=== PATIENT | male | born 1940 | race Caucasian/White ===

== ENCOUNTER 2018-12-22 10:40 | Inpatient (IN) | payer OTHER ==
[~2018-12-22] VITALS: Ht 177.8 cm; Wt 49.9 kg
[2018-12-22] VITALS (19 sets, daily range): BP systolic 102–147; BP diastolic 44–83
--- NOTE | 2018-12-22 10:45 | NUR ---
BIB [facility] FROM HOME,AMS/WEAKNESS, LAST KNOWN WELL 1015 PER REPORT, PATIENT NON-VERBAL, OPEN EYES TO STIMULI. SHORT OF BREATH, O2 SAT < 80S ON ROOM AIR. PATIENT PLACED ON A 15LPM NON-REBREATHER WITH O2 SAT OF 85%. DR. PETERSON AT BEDSIDE FOR EVALUATION. PATIENT PRESENTED WITH 2 IV HEPLOCK, LFA AND RFA G20. PATIENT ATTACHED TO THE PLATE SETTER, AND CHANGED INTO GOWN.
--- NOTE | 2018-12-22 11:05 | NUR ---
PT. IS AWAKE AND FOLLOW COMMANDS PLACED INTO BIPAP DUE TO LOW SPO2 IN NON REBREATHER WITH PARAMETERS BELOW ORDER: IPAP 15 EPAP 5 RATE 12 FIO2 100% BREATH SOUNDS DIMINISHED BILATERAL. TIMG @ BEDSIDE. Addendum: 12/22/18 at 1124 by THEODORE LAROSE RT Amended: Links added.
[2018-12-22] MEDS ORDERED: TRAZ-182 PO (11:06)
[2018-12-22] MEDS ORDERED: ATOR10TA PO (11:08)
[2018-12-22] MEDS ORDERED: METO25TA6 PO (11:08)
[2018-12-22] MEDS ORDERED: FINA5TAB3 PO (11:09)
[2018-12-22] MEDS ORDERED: ASPI-605 PO (11:09)
[2018-12-22] MEDS ORDERED: DONE5TAB7 PO (11:09)
[2018-12-22] MEDS ORDERED: OMEP20TA20 PO (11:09)
[2018-12-22] MEDS ORDERED: ALFU10TA10 PO (11:09)
--- NOTE | 2018-12-22 11:14 | NUR ---
PATIENT PLACED ON BIPAP 15/5. PATIENT RESPONSIVE TO STIMULI AND PAIN.
[2018-12-22 11:15] LABS: ABG BASE EXCESS 0.5 mmol/L; ABG OXYGEN SATURATION 84.3 % (92.0-98.5); ABG PCO2 49.4 mmHg (35.0-45.0); ABG PH 7.352 (7.350-7.450); ABG PO2 53.1 mmHg (75.0-100.0); AaDO2 610.5 mmHg; COHb 1.2 % (0.5-1.5); MetHb 0.5 % (0.0-1.5); O2Hb 82.9 % (94.0-97.0); SITE, ABG Right Brachial; VENT MODE, BG NON REBREATHER
[2018-12-22 11:17] LABS: BASOPHILS % (AUTO) 0.1 % (0.0-2.0); EOSINOPHILS % (AUTO) 0.1 % (0.0-6.0); HEMATOCRIT 46 % (39-51); HEMOGLOBIN 15.6 g/dL (13.5-17.5); LYMPHOCYTES % (AUTO) 8.1 % (20.0-44.0); MEAN CORPUSCULAR HGB CONC 34 g/dl (31.0-36.0); MEAN CORPUSCULAR VOLUME 103 fL (80-96); MONOCYTES # (AUTO) 0.5 /CMM (0.1-1.30); NEUTROPHILS # (AUTO) 10.5 /CMM (1.8-8.9); NEUTROPHILS % (AUTO) 87.7 % (43.0-81.0); PLATELET COUNT (AUTO) 151 /CMM (150-450); RED BLOOD CELL COUNT(AUTO) 4.49 MIL/uL (4.5-6.0)
[2018-12-22 11:22] LABS: APPEARANCE,URINE Clear (CLEAR); BILIRUBIN,URINE MODERATE (NEGATIVE); BLOOD, URINE Large Ery/uL (NEGATIVE); COLOR,URINE Yellow (YELLOW); KETONES,URINE 40 (NEGATIVE); LEUKOCYTE ESTERASE ,URINE Negative (NEGATIVE); NITRITE, URINE Negative (NEGATIVE); PROTEIN,URINE 30 mg/dl (NEGATIVE); UGLUCOSE Negative (NEGATIVE)
[2018-12-22 11:24] LABS: SQUAMOUS EPITHELIAL CELL,UR Rare /HPF (None Seen)
[2018-12-22 11:25] LABS: BACTERIA,URINE Few /HPF (None Seen); HYALINE CASTS, URINE Few /LPF (None Seen)
[2018-12-22 11:25] LABS: CARBON DIOXIDE 29 mmol/L (21-32); CHLORIDE 107 mmol/L (98-107); CREATININE 0.8 mg/dL (0.6-1.3); GLUCOSE 120 mg/dL (74-106); POTASSIUM 3.5 mmol/L (3.5-5.1); SODIUM SERUM 146 mmol/L (136-145); UREA NITROGEN, BLOOD 24 mg/dL (7-18)
[2018-12-22 11:33] LABS: ALBUMIN 3.2 g/dL (3.4-5.0); ALKALINE PHOSPHATASE 121 U/L (46-116); ASPARTATE AMINOTRANSFERASE 16 U/L (15-37); BILIRUBIN,DIRECT 0.8 mg/dL (0.0-0.2); BILIRUBIN,TOTAL 1.8 mg/dL (0.2-1.0); TOTAL PROTEIN, SERUM 6.7 g/dL (6.4-8.2)
[2018-12-22 11:42] LABS: ALANINE AMINOTRANSFERASE 17 U/L (12-78); B-TYPE NATRIURETIC PEPTIDE 351 PG/ML (0-125)
--- NOTE | 2018-12-22 11:51 | NUR ---
PLACED INTO NON REBREATHER @ 15 LPM O2 FLOW PER DR. PETERSON. Addendum: 12/22/18 at 1158 by THEODORE LAROSE RT Amended: Links added.
--- NOTE | 2018-12-22 11:56 | NUR ---
[facility] CALLED FOR READ ON CHEST XRAY
[2018-12-22] MEDS ORDERED: IOHEXOL-350 100 ML VIAL IV ONE (12:02)
--- NOTE | 2018-12-22 12:04 | NUR ---
RECIEVED BED ICU 254
[2018-12-22] MEDS ORDERED: LEVOFLOXACIN 750 MG /D5W 150ML 150 ML IV ONE (12:27)
[2018-12-22] MEDS ORDERED: LEVOFLOXACIN 750 MG /D5W 150ML PIGGYBACK IV ONE (12:30)
--- NOTE | 2018-12-22 13:12 | NUR ---
REAL LANE DNP AT BEDSIDE FOR EVAL. REPORT GIVEN TO MARY DE LA ROSA.
--- NOTE | 2018-12-22 13:54 | NUR ---
PATIENT TRANSFERRED TO ICU VIA ACLS PROTOCOL, PATIENT A/OX3, IN NO DSITRESS AT THIS TIME. VITALS STABLE.
[2018-12-22] MEDS ORDERED: MAG HYDROX/AL HYDROX/SIMETH 30 ML UDC PO PRN (14:00)
[2018-12-22] MEDS ORDERED: IPRATROPIUM NEB FS 0.5 MG/2.5 ML AMPUL.NEB NEB PRN (14:00)
[2018-12-22] MEDS ORDERED: MAGNESIUM HYDROXIDE 30 ML UDC PO PRN (14:00)
[2018-12-22] MEDS ORDERED: MORPHINE SULFATE INJ 2 MG/ML DISP.SYRIN IV PRN (14:00)
[2018-12-22] MEDS ORDERED: ALBUTEROL FS 2.5 MG/3 ML VIAL.NEB NEB PRN (14:00)
[2018-12-22] MEDS ORDERED: ONDANSETRON HCL/PF 4 MG/2 ML VIAL IVP PRN (14:00)
[2018-12-22] MEDS ORDERED: IPRATROPIUM NEB FS 0.5 MG/2.5 ML AMPUL.NEB NEB ONE (14:30)
[2018-12-22] MEDS ORDERED: ALBUTEROL FS 2.5 MG/3 ML VIAL.NEB NEB ONE (14:30)
[2018-12-22] MEDS ORDERED: POLYVINYL ALCOHOL 15 ML BOTTLE EACHEYE SCH (14:30)
--- NOTE | 2018-12-22 15:21 | NUR ---
INITIAL QUILT STUFFER NOTE RCVD PT AWAKE AND ALERT TO SELF/PLACE, SR ON MONITOR, TOLERATING NRB MASK WITH HIGH 80'S LOW 90'S SATURATION. PT APPEARS EMACIATED, FAMILY AT BEDSIDE PROVIDING HX. NO SIGNS OF DISTRESS OBSERVED. DR. PEREZ RECOMMENDED TO START PT ON HIGH FLOW O2 WHICH PT TOLERATES WITH IMPROVEMENT ON O2 SATURATION. WILL CONTINUE TO MONITOR PT FOR SAFETY AND COMFORT. BED IN LOW AND LOCKED POSITION, CALL LIGHT WITHIN REACH, HEAD OF BED ELEVATED.
[2018-12-22] MEDS: IV NS 0.9% 1,000 ML IV PRN (15:26)
[2018-12-22] MEDS: ACETYLCYSTEINE 10% SOLN 400 MG/4 ML VIAL NEB SCH (15:43)
[2018-12-22] MEDS: ALBUTEROL FS 2.5 MG/3 ML VIAL.NEB NEB SCH ×2 (15:44→20:06)
[2018-12-22] MEDS: IPRATROPIUM NEB FS 0.5 MG/2.5 ML AMPUL.NEB NEB SCH ×2 (15:44→20:06)
[2018-12-22] MEDS: methylPREDNISolone SOD SUCC 125 MG/2ML VIAL IV SCH (16:55)
[2018-12-22] MEDS: CARBOXYMETHYLCELLULOSE SODIUM 0.4 ML DROPERETTE EACHEYE SCH (18:00)
--- NOTE | 2018-12-22 19:28 | NUR ---
LAUNCH LEADER NOTE PT REMAINS STABLE, SR ON MONITOR, CONTINENT OF URINE/BOWEL, USING BEDPAN/URINAL. [place]O HUGGER REMAINS IN PLACE, TEMP CORRECTED. IV SITES C/D/I/PATENT. NO S/O INFILTRATION/PHLEBITIS OBSERVED UPON FLUSHING, PT'S CARE ENDORSED TO RJ FARAH FOR CONTINUITY OF CARE, BED IN LOW AND LOCKED POSITION, CALL LIGHT WITHIN REACH, HEAD OF BED ELEVATED.
--- NOTE | 2018-12-22 19:45 | NUR ---
ICU NOTES RECEIVED PT AWAKE ALERT ORIENTED X1,CONFUSED AT TIMES,RE-ORIENTED TO TIME PLACE AND SURROUNDINGS.INCONTINENT OF SOFT MEDIUM BROWN STOOL,AND ALSO URINE CLEANSED,CONDOM CATHETER APPLIED.ON HI-FLOW O2 AT 80% 35LNC.DENIES SHORTNESS OF BREATH,DENIES DISCOMFORT.MONITOR NSR.
--- NOTE | 2018-12-22 20:00 | NUR ---
ICU NOTES PARTNER AT BEDSIDE VISITING ,CONDITION REPORT GIVEN,QUESTIONS ANSWERED.PT TAKING SIPS OF ICE WITHOUT CHOKING OR COUGHING.
[2018-12-22] MEDS ORDERED: ATORVASTATIN 10 MG TABLET PO SCH (22:00)
[2018-12-22] MEDS: TRAZODONE 50 MG TABLET PO SCH (22:00)
[2018-12-23] VITALS (42 sets, daily range): BP systolic 85–151; BP diastolic 44–73
--- NOTE | 2018-12-23 | NUR ---
ICU NOTES HI-FLOW DECREASED BY RT TO 60% AT 20LNC,SATURATION OF 97%.SLEEPING BUT AROUSES EASILY.
[2018-12-23] MEDS: IPRATROPIUM NEB FS 0.5 MG/2.5 ML AMPUL.NEB NEB SCH ×7 (00:18→23:19)
[2018-12-23] MEDS: ALBUTEROL FS 2.5 MG/3 ML VIAL.NEB NEB SCH ×7 (00:18→23:18)
[2018-12-23] MEDS: ACETYLCYSTEINE 10% SOLN 400 MG/4 ML VIAL NEB SCH ×4 (00:18→23:18)
--- NOTE | 2018-12-23 02:00 | NUR ---
ICU NOTES PT.PULLED OUT CONDOM CATHETER,INCONTINENT OF URINE AND STOOL,COMPLETE BED BATH GIVEN.DIAPER APPLIED.
[2018-12-23] MEDS: IV NS 0.9% 1,000 ML IV PRN ×2 (04:17→16:48)
[2018-12-23 04:35] LABS: BASOPHILS % (AUTO) 0.2 % (0.0-2.0); HEMATOCRIT 38 % (39-51); HEMOGLOBIN 13.2 g/dL (13.5-17.5); LYMPHOCYTES # (AUTO) 0.4 /CMM (0.8-4.8); LYMPHOCYTES % (AUTO) 2.5 % (20.0-44.0); MEAN CORPUSCULAR HGB CONC 35 g/dl (31.0-36.0); MEAN CORPUSCULAR VOLUME 100 fL (80-96); MONOCYTES # (AUTO) 0.2 /CMM (0.1-1.30); MONOCYTES % (AUTO) 1.1 % (2.0-12.0); NEUTROPHILS # (AUTO) 14.1 /CMM (1.8-8.9); NEUTROPHILS % (AUTO) 96.2 % (43.0-81.0); PLATELET COUNT (AUTO) 137 /CMM (150-450); RED BLOOD CELL COUNT(AUTO) 3.78 MIL/uL (4.5-6.0); WHITE BLOOD COUNT (AUTO) 14.7 K/uL (4.3-11.0)
[2018-12-23 04:52] LABS: CALCIUM, SERUM 8.7 mg/dL (8.5-10.1); CARBON DIOXIDE 29 mmol/L (21-32); CHLORIDE 110 mmol/L (98-107); CREATININE 0.5 mg/dL (0.6-1.3); GLUCOSE 111 mg/dL (74-106); MAGNESIUM 1.9 mg/dL (1.8-2.4); PHOSPHORUS 2.6 mg/dL (2.5-4.9); POTASSIUM 3.8 mmol/L (3.5-5.1); SODIUM SERUM 146 mmol/L (136-145); UREA NITROGEN, BLOOD 18 mg/dL (7-18)
[2018-12-23 05:12] LABS: CHOLESTEROL 89 mg/dL (<200); HDL CHOLESTEROL 41 mg/dL (40-60); LDL 40 mg/dL (0-99); THYROID STIMULATING HORMONE 0.241 uIU/mL (0.358-3.74); TRIGLYCERIDES 42 mg/dL (30-150)
--- NOTE | 2018-12-23 06:00 | NUR ---
ICU NOTES VITAL SIGNS STABLE.MAINTAINING SATURATION OF 96-97% ON HI-FLOW O2 60% at 20lnc.INCONTINENT OF URINE X4 AND BOWEL MOVEMENT X3.AWAKE ALERT.TAKING ICE CHIPS WITHOUT DIFFICULTY.OFERS NO COMPLAINTS.MONITOR SHOWS NSR.
--- NOTE | 2018-12-23 06:00 | NUR ---
ICU NOTES MAINTAINING SATURATION OF 96-98% ON 55%FIO2.CALM WITH DIPRIVAN OF 40MCG/KG/MIN.SUCTIONING SMALL-MODERATE YELLOWISH FROM ET TUBE AND LARGE ORAL SECRETIONS.ORAL CARE DONE.REMAINS ON RESTRAINTS PT ATTEMPTS TO GRAB GREEN AND ET-TUBING WHEN RESTRAINTS LOOSENED.VITAL SIGNS STABLE,MONITOR NSR.GOOD URINE OUTPUT. Addendum: 12/23/18 at 0651 by SOFI FINK RN WRONG PT.
--- NOTE | 2018-12-23 07:00 | NUR ---
RN NOTES RECEIVED PT ON BED / A/Ox1, ON HIGH FLOW O2 , O2 SAT 95%, NO SOB NOTED, ON TELE SR HR IN 70'S , NS AT 75CC /HR RUNNING VIA R AC IV SITE G20 , PATRICIA UPPER ARM BRUISING NOTED, SR UPx3, CALL LIGHT WITHIN EASY REACH, BED LOCKED AND IN LOWEST POSITION, CONTINUE TO MONITOR
[2018-12-23] MEDS: CARBOXYMETHYLCELLULOSE SODIUM 0.4 ML DROPERETTE EACHEYE SCH ×4 (08:30→23:47)
--- NOTE | 2018-12-23 08:41 | NUR ---
WOUND CARE CONSULT: PT PRESENTS CACHECTIC WITH MULTIPLE SKIN ISSUES INCLUDING BRUISING AND DISCOLORATION TO BILATERAL ARMS WITH VERY FRAGILE SKIN, RT LOWER LEG WOUND, SACRAL SCARRING AND SKIN LESIONS TO UPPER BACK AND LEFT GROIN AREAS, PRESENT ON ADMISSION. DEFER TO MD FOR SKIN LESIONS. RECOMMEND DPM CONSULT FOR RT LOWER LEG WOUND. DEFER TO DPM FOR LOWER EXTREMITY WOUND TREATMENT PLAN. DR CLAROS AWARE OF DPM CONSULT REQUEST. RECOMMENDATIONS MADE FOR SKIN PROTECTION. DISCUSSED WITH NURSING STAFF. DIETARY CONSULT IN PLACE. CURRENT ERIS SCORE IS 11. FIRST STEP LOW AIRLOSS MATTRESS ON ORDER. WILL SEE PRN. MD IN AGREEMENT WITH PLAN OF CARE. Addendum: 12/23/18 at 0844 by NIR CM WNDNU Amended: Links added.
[2018-12-23] MEDS: ASPIRIN EC 81 MG TABLET.DR PO SCH (08:42)
[2018-12-23] MEDS: FINASTERIDE (5 MG) 5 MG TABLET PO SCH (08:42)
[2018-12-23] MEDS: DONEPEZIL 5 MG TABLET PO SCH (08:42)
[2018-12-23] MEDS: methylPREDNISolone SOD SUCC 125 MG/2ML VIAL IV SCH ×2 (08:42→16:46)
[2018-12-23] MEDS: METOPROLOL TARTRATE 25 MG TABLET PO SCH (09:00)
[2018-12-23] MEDS: Z GUARD REMEDY 2 OZ OINT TP PRN (09:27)
[2018-12-23] MEDS: Z GUARD REMEDY 2 OZ OINT TP SCH (09:28)
[2018-12-23] MEDS ORDERED: ENSURE ENLIVE CHOC 237 ML CAN PO SCH (09:30)
[2018-12-23 09:37] LABS: ABG BASE EXCESS -2.5 mmol/L; ABG OXYGEN SATURATION 92.3 % (92.0-98.5); ABG PCO2 36.3 mmHg (35.0-45.0); ABG PH 7.397 (7.350-7.450); ABG PO2 65.5 mmHg (75.0-100.0); AaDO2 141.9 mmHg; COHb 0.1 % (0.5-1.5); MetHb 0.4 % (0.0-1.5); O2Hb 91.8 % (94.0-97.0); SITE, ABG Left Radial; VENT MODE, BG HF 35% 65L
--- NOTE | 2018-12-23 12:00 | NUR ---
RN NOTES SUPPORTIVE FAMILY AT THE BEDSIDE, PT ON HIGH FLOW O2 , O2 SAT WNL , CONTINUE TO MONITOR .
[2018-12-23] MEDS: LEVOFLOXACIN 750 MG /D5W 150ML 750 MG in PREMIX 1 EA IV SCH (13:23)
--- NOTE | 2018-12-23 14:00 | NUR ---
RN NOTES [facility]CI MATTRESS APPLIED . NS AT 75CC/HR RUNNING , CONTINUE TO MONITOR .
--- NOTE | 2018-12-23 18:00 | NUR ---
RN NOTES HR IN LOW 40'S WHEN PT SLEEPS , NO DISTRESS NOTED, NS AT 75CC/HR RUNNING . PT TOLERATING PUREE DIET WELL, NO SIGNIFICANT CHANGES NOTED ON THIS SHIFT , SR UP x3, CALL LIGHT WITHIN EASY REACH, BED LOCKED AND IN LOWEST POSITION, WILL ENDOSE TO MANUFACTURING FINANCE MANAGER NURSE FOR CONTINUITY OF CARE .
[2018-12-23] MEDS: ENSURE ENLIVE CHOC 237 ML CAN PO SCH (18:02)
--- NOTE | 2018-12-23 19:41 | NUR ---
SCOOP FILLER NOTES RECEIVED PT ON BED. A/O X 2. ON TELE MONITOR SB 43-50. ON HIGH FLOW, 100% NO RESPIRATORY DISTRESS NOTED. IV ACESS ON LAC G20 AND RAC G20 NS @ 75CC/HR, PATENT AND INTACT. HEAD OF BED ELEVATED. SIDE RAILS UP. CALL LIGHT WITHIN REACH. BED ALARM ON. WILL CONTINUE TO MONITOR PT CLOSELY.
[2018-12-23] MEDS: TRAZODONE 50 MG TABLET PO SCH (21:20)
--- NOTE | 2018-12-23 21:21 | NUR ---
CITY DRIVER NOTES TRAZODONE NOT GIVEN, PT SLEEPY. HEART RATE 45-50.
--- NOTE | 2018-12-23 23:48 | NUR ---
SHIP SELF DEFENSE SYSTEM MK1 OPERATOR NOTES PT REFUSING EYE DROPS. PER PT HE WANTS TO SLEEP. EXPLAINED RISK AND BENEFITS PT STILL REFUSED.
[2018-12-24] VITALS (44 sets, daily range): BP systolic 102–163; BP diastolic 39–78
[2018-12-24] MEDS: IPRATROPIUM NEB FS 0.5 MG/2.5 ML AMPUL.NEB NEB SCH ×6 (03:48→23:37)
[2018-12-24] MEDS: ALBUTEROL FS 2.5 MG/3 ML VIAL.NEB NEB SCH ×6 (03:48→23:37)
[2018-12-24 04:30] LABS: BASOPHILS % (AUTO) 0.1 % (0.0-2.0); HEMATOCRIT 34 % (39-51); HEMOGLOBIN 12.2 g/dL (13.5-17.5); LYMPHOCYTES # (AUTO) 0.3 /CMM (0.8-4.8); LYMPHOCYTES % (AUTO) 2.7 % (20.0-44.0); MEAN CORPUSCULAR HGB CONC 36 g/dl (31.0-36.0); MEAN CORPUSCULAR VOLUME 99 fL (80-96); MONOCYTES # (AUTO) 0.2 /CMM (0.1-1.30); MONOCYTES % (AUTO) 1.8 % (2.0-12.0); NEUTROPHILS # (AUTO) 11.6 /CMM (1.8-8.9); NEUTROPHILS % (AUTO) 95.4 % (43.0-81.0); PLATELET COUNT (AUTO) 126 /CMM (150-450); RED BLOOD CELL COUNT(AUTO) 3.43 MIL/uL (4.5-6.0); WHITE BLOOD COUNT (AUTO) 12.2 K/uL (4.3-11.0)
[2018-12-24 04:41] LABS: CALCIUM, SERUM 8.9 mg/dL (8.5-10.1); CARBON DIOXIDE 27 mmol/L (21-32); CHLORIDE 110 mmol/L (98-107); CREATININE 0.5 mg/dL (0.6-1.3); GLUCOSE 124 mg/dL (74-106); POTASSIUM 3.5 mmol/L (3.5-5.1); SODIUM SERUM 145 mmol/L (136-145); UREA NITROGEN, BLOOD 15 mg/dL (7-18)
[2018-12-24] MEDS: IV NS 0.9% 1,000 ML IV PRN ×2 (05:13→18:40)
--- NOTE | 2018-12-24 07:00 | NUR ---
RN NOTES RECEIVED PT ON BED. A/O X 2. ON TELE MONITOR SB-SR HR IN LOW 60'S , ON HIGH FLOW O2 , NO RESPIRATORY DISTRESS NOTED, NS @ 75CC/HR RUNNING , HEAD OF BED ELEVATED. SIDE RAILS UPx3, CALL LIGHT WITHIN REACH. BED ALARM ON. WILL CONTINUE TO MONITOR PT CLOSELY.
--- NOTE | 2018-12-24 07:18 | NUR ---
SENIOR PLANNING ANALYST NOTES NO ACUTE CHANGES NOTED DURING THE SHIFT. PROVIDED COMFORT AND CARE. NO ACTIVE BLEEDING NOTED. WILL ENDORSE TO THE AM NURSE FOR CONTINUITY OF CARE.
[2018-12-24] MEDS: ACETYLCYSTEINE 10% SOLN 400 MG/4 ML VIAL NEB SCH ×3 (07:44→23:36)
[2018-12-24] MEDS: FINASTERIDE (5 MG) 5 MG TABLET PO SCH (08:34)
[2018-12-24] MEDS: DONEPEZIL 5 MG TABLET PO SCH (08:34)
[2018-12-24] MEDS: ASPIRIN EC 81 MG TABLET.DR PO SCH (08:34)
[2018-12-24] MEDS: methylPREDNISolone SOD SUCC 125 MG/2ML VIAL IV SCH (08:34)
[2018-12-24] MEDS: ENSURE ENLIVE CHOC 237 ML CAN PO SCH ×3 (08:35→16:00)
[2018-12-24] MEDS: METOPROLOL TARTRATE 25 MG TABLET PO SCH ×2 (08:37→09:31)
[2018-12-24] MEDS: Z GUARD REMEDY 2 OZ OINT TP SCH (08:39)
[2018-12-24] MEDS: POLYVINYL ALCOHOL/POVIDONE 0.4 ML DROPERETTE EACHEYE SCH ×3 (08:45→21:38)
--- NOTE | 2018-12-24 10:30 | NUR ---
RN NOTES PT FAILED VIDEO SWALLOWING DR TYE TONG NOTIFED , ORDER RECEIVED FOR GI CONSULT .
[2018-12-24] MEDS ORDERED: methylPREDNISolone SOD SUCC 40 MG/ML VIAL IV SCH (12:17)
[2018-12-24] MEDS: LEVOFLOXACIN 750 MG /D5W 150ML 750 MG in PREMIX 1 EA IV SCH (13:29)
--- NOTE | 2018-12-24 15:30 | NUR ---
RN NOTES PT ON 2L O2 N/C , O2 SAT WNL , NO SOB NOTED, CONTINUE TO MONITOR .
--- NOTE | 2018-12-24 16:00 | NUR ---
RN NOTES PT STATED , HE IS NO ABLE TO VOID, MD NOTIFED, BLADDER SCAN DONE, 600CC URINE NOTED, GREEN INSERTED PER MD ORDER , 1000 CC URINE OUTPUT DRAINED FROM THE BLADDER . MD NOTIFIED . CONTINUE TO MONITOR .
[2018-12-24] MEDS: methylPREDNISolone SOD SUCC 40 MG/ML VIAL IV SCH (16:47)
[2018-12-24] MEDS ORDERED: BARIUM SULFATE 148 GM SUSP.RECON PO ONE (17:43)
[2018-12-24] MEDS ORDERED: BARIUM SULFATE 240 ML ORAL.SUSP PO ONE (17:43)
--- NOTE | 2018-12-24 18:09 | NUR ---
RN NOTES VSS STABLE, SUPPORTIVE FAMILY AT THE BEDSIDE, NS AT 75CC/HR RUNNING , PT KEPT NPO PER MD ORDER , SR UP x3, CALL LIGHT WITHIN EASY REACH, BED LOCKED AND IN LOWEST POSITION, WILL ENDORSE TO LABORATORY CLERK NURSE FOR CONTINUITY OF CARE .
[2018-12-24] MEDS: CLOTRIMAZOLE 1% 15 GM TUBE TP SCH (18:14)
--- NOTE | 2018-12-24 19:00 | NUR ---
PATIENT PORTAL REPRESENTATIVE NOTES RECEIVED PATIENT AWAKE,ALERT,VERBALLY RESPONSIVE,SPEAKING IN A SOFT VOICE BUT CLEAR ,CONVERSES,COHERENT AND APPROPRIATE, ORIENTED.MOVES ALL EXTREMITIES BUT WEAK,ABLE TO LIFT BOTH ARMS AND SLIGHTLY BOTH LOWER EXTREMITIES. NOT IN ANY DISTRESS,BREATHING REGULAR AND NON LABORED, WITH O2 VIA NASAL CANNULA 2L/MIN. CACHECTIC ALL PRESSURE POINTS PROTECTED ,COMFORT CARE DONE,NEEDS ATTENDED.MAINTAINED NPO, ASPIRATION PRECAUTION OBSERVED. 2000 FAMILY AT BEDSIDE,PATIENT COMMUNICATIVE.
[2018-12-24] MEDS: TRAZODONE 50 MG TABLET PO SCH (22:00)
--- NOTE | 2018-12-24 22:00 | NUR ---
REMAINS STABLE,FAMILY AT BEDSIDE,COMFORT CARE AND NEEDS ATTENDED.PATIENT FOR TRANSFER TO [facility]. [id number] REPORT GIVEN TO RJ ERICKSON IN [facility].
--- NOTE | 2018-12-24 22:13 | NUR ---
RECEIVED REPORT FROM RJ RODRIGUEZ FOR [facility].
--- NOTE | 2018-12-24 22:20 | NUR ---
[facility] RN OPENING NOTES RECEIVED PATIENT VIA BED FROM ICU. PATIENT AWAKE, A/OX3, ABLE TO MAKE NEEDS KNOWN. FAMILY AT BEDSIDE AND VERY INVOLVED IN PATIENT'S CARE. ON TELE MONITOR SINUS RHYTHM WITH HR 70'S. ON OXYGEN 2L VIA NC, TOLERATING WELL, NO SOB OR RESPIRATORY DISTRESS NOTED. MOVES ALL EXTREMITIES BUT WEAK, ABLE TO LIFT BOTH ARMS AND SLIGHTLY BOTH LOWER EXTREMITIES. HARD OF HEARING IN BOTH EARS, NO HEARING AIDS NOTED. ALL PRESSURE POINTS PROTECTED, COMFORT CARE DONE, NEEDS ATTENDED. MAINTAINED NPO PER MD ORDER, ASPIRATION PRECAUTION OBSERVED. SAFETY MEASURES MAINTAINED; CALL LIGHT WITHIN REACH, SIDE RAILS UP X4 PER PATIENT REQUEST, HOB ELEVATED, BED LOCKED AND ON LOW POSITION. WILL CONT TO MONITOR PT CLOSELY.
--- NOTE | 2018-12-24 22:20 | NUR ---
TRANSFERED TO [facility] RM# [id number],PATIENT REMAINS STABLE,AWAKE,ALERT,NOT IN ANY RESPIRATORY DISTRESS.
[2018-12-25] MEDS: ALBUTEROL FS 2.5 MG/3 ML VIAL.NEB NEB SCH ×6 (03:36→23:47)
[2018-12-25] MEDS: IPRATROPIUM NEB FS 0.5 MG/2.5 ML AMPUL.NEB NEB SCH ×6 (03:36→23:47)
[2018-12-25 04:00] VITALS: BP 143/69
[2018-12-25] MEDS: POLYVINYL ALCOHOL/POVIDONE 0.4 ML DROPERETTE EACHEYE SCH ×3 (05:34→21:00)
[2018-12-25 06:29] LABS: BASOPHILS % (AUTO) 0.1 % (0.0-2.0); HEMATOCRIT 37 % (39-51); HEMOGLOBIN 12.9 g/dL (13.5-17.5); LYMPHOCYTES # (AUTO) 0.3 /CMM (0.8-4.8); LYMPHOCYTES % (AUTO) 2.6 % (20.0-44.0); MEAN CORPUSCULAR HGB CONC 35 g/dl (31.0-36.0); MEAN CORPUSCULAR VOLUME 99 fL (80-96); MONOCYTES # (AUTO) 0.3 /CMM (0.1-1.30); MONOCYTES % (AUTO) 2.7 % (2.0-12.0); NEUTROPHILS # (AUTO) 11.6 /CMM (1.8-8.9); NEUTROPHILS % (AUTO) 94.6 % (43.0-81.0); PLATELET COUNT (AUTO) 126 /CMM (150-450); RED BLOOD CELL COUNT(AUTO) 3.73 MIL/uL (4.5-6.0); WHITE BLOOD COUNT (AUTO) 12.2 K/uL (4.3-11.0)
[2018-12-25] MEDS: IV NS 0.9% 1,000 ML IV PRN (06:51)
--- NOTE | 2018-12-25 07:00 | NUR ---
[facility] RN CLOSING NOTES PATIENT SLEEPING, BUT EASY TO AROUSE. A/OX3, ABLE TO MAKE NEEDS KNOWN. NO ACUTE CHANGES THROUGHOUT SHIFT. ON TELE MONITOR SINUS RHYTHM WITH HR 60'S. ON OXYGEN 2L VIA NC, TOLERATING WELL, NO SOB OR RESPIRATORY DISTRESS NOTED. GREEN CATHETER OFF THE FLOOR AND DRAINING WELL. HARD OF HEARING ON BOTH EARS, NO HEARING AIDS NOTED. ALL PRESSURE POINTS PROTECTED, COMFORT CARE DONE, NEEDS ATTENDED. MAINTAINED NPO PER MD ORDER, ASPIRATION PRECAUTION OBSERVED. SAFETY MEASURES MAINTAINED; CALL LIGHT WITHIN REACH, SIDE RAILS UP X4 PER PATIENT REQUEST, HOB ELEVATED, BED LOCKED AND ON LOW POSITION. WILL CONT TO MONITOR PT CLOSELY. REPOSITIONED Q2H. ENDORSED TO AM RN FOR [facility].
[2018-12-25 07:26] LABS: CALCIUM, SERUM 8.3 mg/dL (8.5-10.1); CARBON DIOXIDE 27 mmol/L (21-32); CHLORIDE 106 mmol/L (98-107); CREATININE 0.4 mg/dL (0.6-1.3); GLUCOSE 117 mg/dL (74-106); POTASSIUM 3.3 mmol/L (3.5-5.1); SODIUM SERUM 141 mmol/L (136-145); UREA NITROGEN, BLOOD 9 mg/dL (7-18)
[2018-12-25] MEDS: ACETYLCYSTEINE 10% SOLN 400 MG/4 ML VIAL NEB SCH ×3 (07:40→23:47)
--- NOTE | 2018-12-25 07:45 | NUR ---
RN NOTE: RECEIVED PATIENT IN BED, ASLEEP, BUT AROUSABLE WITH TACTILE STIMULI AND VERBAL CUES. RESPIRATION EVEN AND UNLABORED AND WAS ON O2 2L/MIN VIA NC SATURATING 97%. DENIED ANY PAIN. ON OCEANOGRAPHER PHYSICAL SR HR= 67. HOB ELEVATED. BED ALARMED AND LOCKED AT ALL TIMES. AFEBRILE. SKIN WARM TO TOUCH. PATIENT WAS INFUSING NS @75ML/HR. GREEN CATHETER IN PLACED DRAINING YELLOW URINE TO GRAVITY. CALL LIGHT WITHIN REACH. NEEDS ANTICIPATED.
[2018-12-25 08:00] VITALS: BP 152/71
[2018-12-25] MEDS: ENSURE ENLIVE CHOC 237 ML CAN PO SCH ×3 (08:00→16:31)
[2018-12-25] MEDS: methylPREDNISolone SOD SUCC 40 MG/ML VIAL IV SCH ×2 (08:41→16:33)
[2018-12-25] MEDS: METOPROLOL TARTRATE 25 MG TABLET PO SCH (09:00)
[2018-12-25] MEDS: DONEPEZIL 5 MG TABLET PO SCH (09:00)
[2018-12-25] MEDS: FINASTERIDE (5 MG) 5 MG TABLET PO SCH (09:00)
[2018-12-25] MEDS: ASPIRIN EC 81 MG TABLET.DR PO SCH (09:00)
[2018-12-25] MEDS: Z GUARD REMEDY 2 OZ OINT TP SCH (09:49)
[2018-12-25] MEDS: CLOTRIMAZOLE 1% 15 GM TUBE TP SCH ×2 (09:50→16:35)
[2018-12-25] MEDS: POTASSIUM CL. PREMIX PERIPHER. 50 ML IV SCH ×4 (10:00→13:07)
--- NOTE | 2018-12-25 10:45 | NUR ---
RN NOTE: SPOKE WITH DR. GAMBLE REGARDING THE PATIENT'S BLOOD PRESSURE TREND. PATIENT REMAINED ON NPO STATUS DUE TO THE FAILED VIDEO SWALLOW. FABIAN RODRIGUEZ WAS PRESENT AT THE BEDSIDE AND EXPRESSED HIS OPINION TO DR. GAMBLE. FOR THE MEANTIME, DR. GAMBLE DOES NOT WANT TO GIVEN ANY PRN MEDICATION FOR THE PATIENT'S BP. WILL CONTINUE TO MONITOR AND REPORT TO MD ACCORDINGLY.
--- NOTE | 2018-12-25 11:26 | NUR ---
RN NOTE: CALLED AND SPOKE WITH [employer] EXCHANGE FOR DAISY SHEFFIELD NP REGARDING THE PATIENT'S DPOA FARSHAD MOY DECISION TO GO WITH THE PEG PLACEMENT. DR. GAMBLE WAS INFORMED ABOUT THE DECISION FOR PEG PLACEMENT. AWAITING FOR Matt SHEFFIELD'S [facility] MOLD PRINTER CALL BACK.
--- NOTE | 2018-12-25 12:00 | NUR ---
RN NOTE: RECEIVED A CALL BACK FROM [employer] COIN COLLECTOR WAS FOLLOWING-UP IF DAISY SHEFFIELD NP HAS RETURN THE CALL. AWAITING FOR Matt SHEFFIELD'S CALL BACK. REQUESTED TO PAGE THE [employer]ICK[employer] AND FISH AGAIN.
--- NOTE | 2018-12-25 14:09 | NUR ---
RN NOTE: RECEIVED A PHONE CALL FROM DAISY SHEFFIELD NP AND GAVE HER AN UPDATE REGARDING THE PATIENT. PER GUEST SERVICE HOST, SHE ORDERED TO INSERT A NGT AND START TUBE FEEDING PER DIETITIAN RECOMMENDATION AND SHE WANTED TO GET AN EGD WITH PEG CONSENT. ORDER NOTED AND CARRIED OUT. FABIAN RODRIGUEZ WAS MADE AWARE.
[2018-12-25] MEDS: LEVOFLOXACIN 750 MG /D5W 150ML 750 MG in PREMIX 1 EA IV SCH (14:21)
--- NOTE | 2018-12-25 15:19 | NUR ---
RN NOTE: TRIED TO INSERT ON THE (R) NOSTRIL, BUT PATIENT WAS CLENCHING HIS MOUTH AND THE TUBE CAME OUT OF HIS MOUTH. TRIED TO INSERT ON THE (L) NOSTRIL AND THIS TIME, IT WON'T GO THROUGH AND PATIENT WAS SHOUTING AND SCREAMING AND REFUSED TO HAVE IT INSERTED. PATIENT'S DPOAFARSHAD (FABIAN) WAS OUTSIDE THE ROOM AND INFORMED HIM THE THE PATIENT HAS BEEN UNCOOPERATIVE WITH THE NGT INSERTION. CALLED AND SPOKE WITH DAISY SHEFFIELD NP REGARDING THE PATIENT'S INTOLERANCE AND REFUSAL TO RECEIVE THE NGT. PER Matt SHEFFIELD NP SHE SAID TO TRY AGAIN LATER AND SHE ORDERED TO CHANGE THE IV FLUID TO D5NS @75ML/HR AND DC THE PREVIOUS IVF NS. ORDER NOTED AND CARRIED OUT. FABIAN RODRIGUEZ WAS MADE AWARE.
[2018-12-25] MEDS: IV D5/ 0.9% NACL 1,000 ML IV PRN (15:35)
[2018-12-25 16:00] VITALS: BP 147/74
[2018-12-25] MEDS: Z GUARD REMEDY 2 OZ OINT TP PRN (16:35)
--- NOTE | 2018-12-25 19:00 | NUR ---
MS RN NOTE RECEIVED PT IN STABLE CONDITION, A/O X3, CURRENTLY IN BED WATCHING TV. NO SIGNS OF SOB OR DISTRESS. NO COMPLAINTS OF PAIN. ON O2 NC, TOLERATING WELL. GREEN CATH INTACT WITH ADEQUATE URINE DRAINING. IV IN PLACE WITH IVF INFUSING, TOLERATING WELL. ALL CURRENT NEEDS ATTENDED TO. BED LOW, LOCKED, UPPER RAILS UP, AND CALL LIGHT WITHIN REACH. WILL CONT. TO MONITOR.
--- NOTE | 2018-12-25 19:30 | NUR ---
RN NOTE: BEDSIDE REPORT WAS GIVEN TO PM SHIFT NURSE FOR CONTINUITY OF CARE. PATIENT'S PARTNER/DPFARDIEH YEN STEPPED OUT OF THE UNIT AND ACCORDING TO HIM HE WILL COME BACK AGAIN BY BETITO. ENDORSED TO PM SHIFT NURSE TO TRY INSERTING A NGT FOR THE PATIENT. PATIENT ON STABLE CONDITION UPON CHANGE OF SHIFT.
[2018-12-25 20:00] VITALS: BP 154/73
[2018-12-25] MEDS: TRAZODONE 50 MG TABLET PO SCH (21:04)
--- NOTE | 2018-12-25 21:05 | NUR ---
MS RN NOTE PT REFUSED 2100 DOSE OF EYE DROPS, RISKS AND BENEFITS MADE AWARE. PT. PARTNER ALSO AT BEDSIDE. WILL CONT. TO MONITOR.
--- NOTE | 2018-12-25 22:30 | NUR ---
MS RN NOTE PT'S PARTNER FARSHAD EXPRESSED TO POSTPONE NG TUBE INSERTION TO THE MORNING. STATING THAT IT WAS TOO MUCH STRESS ON PT. WILL CONT. TO MONITOR.
[2018-12-26] VITALS: BP 154/73
[2018-12-26] MEDS: IV D5/ 0.9% NACL 1,000 ML IV PRN ×2 (03:38→18:11)
[2018-12-26 04:00] VITALS: BP_SYST 133; BP_DIAS 7; BP_DIAS 79
[2018-12-26] MEDS: ALBUTEROL FS 2.5 MG/3 ML VIAL.NEB NEB SCH ×6 (04:19→23:36)
[2018-12-26] MEDS: IPRATROPIUM NEB FS 0.5 MG/2.5 ML AMPUL.NEB NEB SCH ×6 (04:19→23:36)
[2018-12-26] MEDS: POLYVINYL ALCOHOL/POVIDONE 0.4 ML DROPERETTE EACHEYE SCH ×3 (05:00→20:43)
--- NOTE | 2018-12-26 06:20 | NUR ---
MS RN NOTE PT IN STABLE CONDITION, A/O X2, CURRENTLY IN BED RESTING. NO SIGNS OF SOB OR DISTRESS. NO COMPLAINTS OF PAIN. ON O2 NC, TOLERATING WELL. GREEN CATH INTACT WITH ADEQUATE URINE DRAINING. IV IN PLACE WITH IVF INFUSING, TOLERATING WELL. ALL CURRENT NEEDS ATTENDED TO. BED LOW, LOCKED, PT REPOSITIONED PER UNIT PROTOCOL, UPPER RAILS UP, AND CALL LIGHT WITHIN REACH. WILL CONT. TO MONITOR AND ENDORSE TO NEXT SHIFT FOR [facility].
[2018-12-26 06:44] LABS: BASOPHILS % (AUTO) 0.2 % (0.0-2.0); HEMATOCRIT 40 % (39-51); HEMOGLOBIN 14.2 g/dL (13.5-17.5); LYMPHOCYTES # (AUTO) 0.3 /CMM (0.8-4.8); LYMPHOCYTES % (AUTO) 2.5 % (20.0-44.0); MEAN CORPUSCULAR HGB CONC 35 g/dl (31.0-36.0); MEAN CORPUSCULAR VOLUME 97 fL (80-96); MONOCYTES # (AUTO) 0.5 /CMM (0.1-1.30); NEUTROPHILS # (AUTO) 11.8 /CMM (1.8-8.9); NEUTROPHILS % (AUTO) 93.3 % (43.0-81.0); PLATELET COUNT (AUTO) 146 /CMM (150-450); RED BLOOD CELL COUNT(AUTO) 4.16 MIL/uL (4.5-6.0); WHITE BLOOD COUNT (AUTO) 12.6 K/uL (4.3-11.0)
[2018-12-26 06:56] LABS: CALCIUM, SERUM 8.4 mg/dL (8.5-10.1); CARBON DIOXIDE 30 mmol/L (21-32); CHLORIDE 101 mmol/L (98-107); CREATININE 0.6 mg/dL (0.6-1.3); GLUCOSE 108 mg/dL (74-106); POTASSIUM 3.2 mmol/L (3.5-5.1); SODIUM SERUM 138 mmol/L (136-145); UREA NITROGEN, BLOOD 5 mg/dL (7-18)
--- NOTE | 2018-12-26 07:10 | NUR ---
MS RN OPENING NOTES RECEIVED PT IN BED, AWAKE, A/O X2-3 WITH EPISODES OF CONFUSION. PT ON SUPPLEMENTARY OXYGEN AT 2L VIA NC, WITH NO ACUTE RESPIRATORY DISTRESS NOTED. PT DENIES PAIN OR DISCOMFORT AT THIS TIME. PT DENIES ANY CONCERNS OR QUESTIONS WELL. PT NOTED TRYING TO GET OUT OF BED, PER NIGHT NURSE HE'S BEEN DOING THAT LAST NIGHT WELL. IVF D5 NS AT 75 ML/HR TO LFA G20, INTACT AND FLUID INFUSING WELL. PIV RFA G20 SL AND LAC G20 SL, BOTH FLUSHED WITH NS, INTACT AND OPERATIONAL. HOB KEPT ELEVATED. PT'S KEPT COMFORTABLE. PT'S BED IN LOWEST, LOCKED POSITION WITH SR X3. CALL LIGHT KEPT WITHIN REACH WILL CONTINUE PLAN OF CARE.
[2018-12-26] MEDS: ACETYLCYSTEINE 10% SOLN 400 MG/4 ML VIAL NEB SCH ×3 (07:12→23:36)
[2018-12-26 08:00] VITALS: BP 130/79
[2018-12-26] MEDS: ENSURE ENLIVE CHOC 237 ML CAN PO SCH ×3 (08:00→16:41)
[2018-12-26] MEDS: DONEPEZIL 5 MG TABLET PO SCH (09:00)
[2018-12-26] MEDS: FINASTERIDE (5 MG) 5 MG TABLET PO SCH (09:00)
[2018-12-26] MEDS: METOPROLOL TARTRATE 25 MG TABLET PO SCH (09:00)
[2018-12-26] MEDS: ASPIRIN EC 81 MG TABLET.DR PO SCH (09:00)
[2018-12-26] MEDS: POTASSIUM CL. PREMIX PERIPHER. 50 ML IV SCH ×4 (09:02→12:30)
[2018-12-26] MEDS: methylPREDNISolone SOD SUCC 40 MG/ML VIAL IV SCH ×2 (09:51→16:41)
--- NOTE | 2018-12-26 10:00 | NUR ---
MS RN NOTES SEEN AND EVALUATED BY MD/MEGA. PT'S PARTNER REQUESTED TO TRY NGT AGAIN TODAY. PT REFUSED AND MD AWARE. MD ALSO AWARE PT IS SCHEDULED FOR PEG PLACEMENT ON FRIDAY. WILL CONTINUE TO MONITOR PT.
[2018-12-26] MEDS: CLOTRIMAZOLE 1% 15 GM TUBE TP SCH ×2 (11:37→16:50)
[2018-12-26] MEDS: Z GUARD REMEDY 2 OZ OINT TP SCH (11:37)
[2018-12-26] MEDS: LEVOFLOXACIN 750 MG /D5W 150ML 750 MG in PREMIX 1 EA IV SCH (13:54)
[2018-12-26 16:00] VITALS: BP 132/77
--- NOTE | 2018-12-26 18:35 | NUR ---
MS RN CLOSING NOTES PT REMAINS IN BED, AWAKE, A/O X2-3 WITH EPISODES OF CONFUSION. PT ON SUPPLEMENTARY OXYGEN AT 2L VIA NC, WITH NO ACUTE RESPIRATORY DISTRESS NOTED. PT DENIES PAIN OR DISCOMFORT AT THIS TIME. PARTNER/FARSHAD AT BEDSIDE SINCE THIS MORNING. IVF D5 NS AT 75 ML/HR TO LAC G20, INTACT AND FLUID INFUSING WELL. PIV RFA G20 SL, FLUSHED WITH NS, INTACT AND OPERATIONAL. HOB KEPT ELEVATED. ALL NEEDS AND CARE PROVIDED. PT'S KEPT COMFORTABLE. PT'S BED IN LOWEST, LOCKED POSITION WITH SR X3. CALL LIGHT KEPT WITHIN REACH. WILL ENDORSE TO INCOMING NIGHT NURSE FOR [facility].
--- NOTE | 2018-12-26 19:30 | NUR ---
MS/RN RECEIVED PATIENT IN BED AWAKE, ALERT, ORIENTED, COMFORTABLE, NO C/O PAIN, NO DISTRESS NOTED, FAMILY MEMBER AT BEDSIDE. WILL MONITOR.
[2018-12-26 20:00] VITALS: BP 138/82
[2018-12-26] MEDS: TRAZODONE 50 MG TABLET PO SCH (22:00)
[2018-12-27] MEDS: IPRATROPIUM NEB FS 0.5 MG/2.5 ML AMPUL.NEB NEB SCH ×6 (03:35→23:39)
[2018-12-27] MEDS: ALBUTEROL FS 2.5 MG/3 ML VIAL.NEB NEB SCH ×6 (03:36→23:39)
[2018-12-27 04:00] VITALS: BP 126/72
[2018-12-27] MEDS: POLYVINYL ALCOHOL/POVIDONE 0.4 ML DROPERETTE EACHEYE SCH ×3 (05:24→20:31)
--- NOTE | 2018-12-27 06:02 | NUR ---
MS/RN PATIENT IS AWAKE AT THIS TIME, COMFORTABLE, NO DISTRESS NOTED, HAD AN ON AND OFF SLEEP THE WHOLE NIGHT, ALL NEEDS ATTENDED AT THIS TIME. WILL CONTINUE TO MONITOR.
[2018-12-27 06:42] LABS: BASOPHILS % (AUTO) 0.1 % (0.0-2.0); HEMATOCRIT 40 % (39-51); LYMPHOCYTES # (AUTO) 0.3 /CMM (0.8-4.8); LYMPHOCYTES % (AUTO) 2.2 % (20.0-44.0); MEAN CORPUSCULAR HGB CONC 35 g/dl (31.0-36.0); MEAN CORPUSCULAR VOLUME 98 fL (80-96); MONOCYTES # (AUTO) 0.9 /CMM (0.1-1.30); MONOCYTES % (AUTO) 6.3 % (2.0-12.0); NEUTROPHILS # (AUTO) 12.3 /CMM (1.8-8.9); NEUTROPHILS % (AUTO) 91.4 % (43.0-81.0); PLATELET COUNT (AUTO) 146 /CMM (150-450); WHITE BLOOD COUNT (AUTO) 13.4 K/uL (4.3-11.0)
[2018-12-27 07:05] LABS: CALCIUM, SERUM 8.3 mg/dL (8.5-10.1); CARBON DIOXIDE 25 mmol/L (21-32); CHLORIDE 101 mmol/L (98-107); CREATININE 0.6 mg/dL (0.6-1.3); GLUCOSE 126 mg/dL (74-106); POTASSIUM 3.4 mmol/L (3.5-5.1); SODIUM SERUM 136 mmol/L (136-145); UREA NITROGEN, BLOOD 9 mg/dL (7-18)
[2018-12-27] MEDS: ACETYLCYSTEINE 10% SOLN 400 MG/4 ML VIAL NEB SCH ×3 (07:57→23:39)
[2018-12-27 08:00] VITALS: BP 114/57
[2018-12-27] MEDS: ENSURE ENLIVE CHOC 237 ML CAN PO SCH ×3 (08:00→17:00)
--- NOTE | 2018-12-27 08:00 | NUR ---
MS1/RN AM SHIFT INITIAL NOTES RECEIVED PT ASLEEP IN BED, EASILY AROUSED, PT A/O X 1-2 WITH EPISODES OF CONFUSION. NO ACUTE RESPIRATORY DISTRESS OR CHANGE OF CONDITION NOTED, ON 2L O2 VIA N/C SATURATING @ 94%, LUNG SOUNDS CLEAR, RESPIRATIONS EVEN & UNLABORED. PT ON NPO STATUS AT THIS TIME, WITH ON GOING IV INFUSION OF D5NS @ 75CC/HR, IV SITE PATENT WITH NO S/S OF INFECTION. GREEN CATHETER INTACT WITH NOTED CLOUDY YELLOW URINE OUTPUT. PT IS COMFORTABLE AT THIS TIME, SCHEDULED AM MEDS TO BE GIVEN. CL WITHIN REACHED AND SAFETY MAINTAINED. ON GOING MONITORING.
[2018-12-27] MEDS: methylPREDNISolone SOD SUCC 40 MG/ML VIAL IV SCH ×2 (08:27→17:53)
[2018-12-27] MEDS: Z GUARD REMEDY 2 OZ OINT TP SCH (08:28)
[2018-12-27] MEDS: CLOTRIMAZOLE 1% 15 GM TUBE TP SCH ×2 (08:28→17:53)
[2018-12-27] MEDS: FINASTERIDE (5 MG) 5 MG TABLET PO SCH (08:29)
[2018-12-27] MEDS: ASPIRIN EC 81 MG TABLET.DR PO SCH (08:29)
[2018-12-27] MEDS: METOPROLOL TARTRATE 25 MG TABLET PO SCH (08:29)
[2018-12-27] MEDS: DONEPEZIL 5 MG TABLET PO SCH (08:29)
--- NOTE | 2018-12-27 08:40 | NUR ---
MS1/RN ROUNDS - DR. GAMBLE PT SEEN & EXAMINED BY DR. GAMBLE, WITH PT'S SIGNIFICANT OTHER AT BEDSIDE, NO NEW ORDERS RECEIVED THIS TIME. PT IS SCHEDULED FOR EGD/PEG PLACEMENT TOMORROW. MONITORING CONTINUED.
[2018-12-27] MEDS: POTASSIUM CL. PREMIX PERIPHER. 50 ML IV SCH ×2 (12:55→15:54)
[2018-12-27] MEDS: LEVOFLOXACIN 750 MG /D5W 150ML 750 MG in PREMIX 1 EA IV SCH (14:06)
[2018-12-27 16:00] VITALS: BP 121/68
--- NOTE | 2018-12-27 19:30 | NUR ---
MS1/RN AM SHIFT END NOTES NO ACUTE CHANGE OF CONDITION NOTED DURING THE SHIFT. ALL NEEDS MET. PT ENDORSED TO PM NURSE TO CONTINUE CARE.
[2018-12-27 20:00] VITALS: BP 139/69
--- NOTE | 2018-12-27 20:00 | NUR ---
MS RN NOTES RECEIVED PT ON BED. A/O X3 . ON NASAL CANNULA 2LPM NO RESPIRATORY DISTRESS NOTED. GREEN CATH DRAINING YELLOW URINE. IV ACCESS ON RFA G20 WITH D5NS RUNNING @ 75CC/HR. HEAD OF BED ELEVATED. SIDE RAILS UP. CALL LIGHT WITHIN REACH. BED ALARM ON. WILL MONITOR PT CLOSELY.
[2018-12-27] MEDS: TRAZODONE 50 MG TABLET PO SCH (20:31)
[2018-12-27] MEDS: IV D5/ 0.9% NACL 1,000 ML IV PRN (22:58)
--- NOTE | 2018-12-28 03:08 | NUR ---
[facility] RN NOTES RECEIVED PATIENT'S REPORT FROM AM RN . PATIENT IS A/A/OX2 WITH FAMILY MEMBER AT THE BEDSIDE. PT IS ON 2L O2 VIA NC. GREEN CATH IS IN PLACE DRAINING CLEAR YELLOW URINE ON GRAVITY. GT IS IN PLACE WITH FEEDING HELD DUE TO 200ML OF RESIDUAL AT THIS TIME. RIGHT FOREARM G20 IV LINE IS PATIENT AND INTACT. NO SOB, NO PAIN AT THIS TIME, BREATHING EVEN AND NON LABORED , NO N/V AT THIS TIME. ALL SAFETY MEASURES ARE IN PLACE, BED IN LOW, LOCKED POSITION, CALL LIGHT IN PLACE.WILL CONTINUE TO MONITOR PATIENT CLOSELY. Addendum: 12/29/18 at 7034 by MIMA BATEMAN RN please disregard the note above . wrong time documentation.
[2018-12-28] MEDS: ALBUTEROL FS 2.5 MG/3 ML VIAL.NEB NEB SCH ×6 (03:38→23:19)
[2018-12-28] MEDS: IPRATROPIUM NEB FS 0.5 MG/2.5 ML AMPUL.NEB NEB SCH ×6 (03:38→23:19)
[2018-12-28 04:00] VITALS: BP 153/81
[2018-12-28] MEDS: POLYVINYL ALCOHOL/POVIDONE 0.4 ML DROPERETTE EACHEYE SCH ×3 (04:13→22:37)
--- NOTE | 2018-12-28 06:19 | NUR ---
MS RN NOTES NO ACUTE CHANGES NOTED DURING THE SHIFT. PROVIDED COMFORT AND SAFETY. WILL ENDORSE TO THE AM NURSE FOR CONTINUITY OF CARE.
[2018-12-28 06:41] LABS: CALCIUM, SERUM 8.3 mg/dL (8.5-10.1); CARBON DIOXIDE 27 mmol/L (21-32); CHLORIDE 102 mmol/L (98-107); CREATININE 0.6 mg/dL (0.6-1.3); EOSINOPHILS % (AUTO) 0.1 % (0.0-6.0); GLUCOSE 96 mg/dL (74-106); HEMATOCRIT 41 % (39-51); HEMOGLOBIN 14.6 g/dL (13.5-17.5); LYMPHOCYTES # (AUTO) 0.3 /CMM (0.8-4.8); LYMPHOCYTES % (AUTO) 2.7 % (20.0-44.0); MEAN CORPUSCULAR HGB CONC 35 g/dl (31.0-36.0); MEAN CORPUSCULAR VOLUME 98 fL (80-96); MONOCYTES # (AUTO) 0.8 /CMM (0.1-1.30); MONOCYTES % (AUTO) 6.2 % (2.0-12.0); NEUTROPHILS # (AUTO) 11.8 /CMM (1.8-8.9); PLATELET COUNT (AUTO) 119 /CMM (150-450); POTASSIUM 3.7 mmol/L (3.5-5.1); SODIUM SERUM 137 mmol/L (136-145); UREA NITROGEN, BLOOD 6 mg/dL (7-18)
--- NOTE | 2018-12-28 07:25 | NUR ---
MS1/RN AM SHIFT INITIAL NOTES PT LEFT VIA BED TO OPERATING ROOM FOR EGD/PEG PLACEMENT PROCEDURE IN STABLE CONDITION. Addendum: 12/28/18 at 0758 by JEANNINE PIRES RN ADDENDUM: SIGNIFICANT OTHER NOTIFIED OF THE PICK-UP FOR SURGERY.
[2018-12-28] MEDS: ACETYLCYSTEINE 10% SOLN 400 MG/4 ML VIAL NEB SCH ×3 (07:35→23:19)
[2018-12-28 08:00] VITALS: BP 147/102
[2018-12-28] MEDS: ENSURE ENLIVE CHOC 237 ML CAN PO SCH (08:00)
[2018-12-28] MEDS: methylPREDNISolone SOD SUCC 40 MG/ML VIAL IV SCH ×2 (08:25→18:01)
[2018-12-28] MEDS: DONEPEZIL 5 MG TABLET PO SCH (08:26)
[2018-12-28] MEDS: FINASTERIDE (5 MG) 5 MG TABLET PO SCH (08:26)
[2018-12-28] MEDS: CLOTRIMAZOLE 1% 15 GM TUBE TP SCH ×2 (08:26→18:01)
[2018-12-28] MEDS: METOPROLOL TARTRATE 25 MG TABLET PO SCH (08:26)
[2018-12-28] MEDS: ASPIRIN EC 81 MG TABLET.DR PO SCH (08:26)
[2018-12-28] MEDS: Z GUARD REMEDY 2 OZ OINT TP SCH (08:27)
--- NOTE | 2018-12-28 08:27 | NUR ---
MS1/RN BLAS & Z-GUARD PT NOT IN ROOM IN SURGERY FOR EGD/PEG PLACEMENT.
--- NOTE | 2018-12-28 08:40 | NUR ---
MS1/RN BACK FROM SURGERY PT RETURNED FROM SURGERY S/P EGD/PEG PLACEMENT, IN STABLE CONDITION. RESUMED CARE. ON GOING MONITORING.
--- NOTE | 2018-12-28 09:00 | NUR ---
MS1/RN ROUNDS - DR. PEREZ PT SEEN & EXAMINED BY DR. PEREZ, NO NEW ORDERS RECEIVED.
--- NOTE | 2018-12-28 10:43 | NUR ---
MS1/RN ROUNDS - DR. JIMENEZ PT SEEN & EXAMINED BY DR. JIMENEZ, NO NEW ORDER RECEIVED.
--- NOTE | 2018-12-28 10:48 | NUR ---
MS1/RN ROUNDS - DR. GAMBLE PT SEEN & EXAMINED BY DR. GAMBLE, NO NEW ORDERS RECEIVED.
[2018-12-28] MEDS: ACETAMINOPHEN 325 MG TABLET PO PRN ×2 (12:18→19:01)
--- NOTE | 2018-12-28 13:45 | NUR ---
MS1/RN GT FEEDING INITIATED GT FEEDING STARTED, RATE @ 20CC/HR. MONITORING.
[2018-12-28] MEDS: JEVITY 1.2 CAL 1,000 ML BOTTLE GT PRN (13:48)
[2018-12-28 16:00] VITALS: BP 130/72
[2018-12-28] MEDS: LEVOFLOXACIN 750 MG /D5W 150ML 750 MG in PREMIX 1 EA IV SCH (18:01)
[2018-12-28] MEDS ORDERED: IV NS 0.9% 250 ML IV PRN (18:30)
--- NOTE | 2018-12-28 18:45 | NUR ---
MS1/RN GASTRIC RESIDUAL GASTRIC RESIDUAL CHECKED MORE THAN 100, GT FEEDING HELD.
[2018-12-28 20:00] VITALS: BP 111/69
--- NOTE | 2018-12-28 20:00 | NUR ---
[facility] RN NOTES RECEIVED PATIENT'S REPORT FROM AM RN . PATIENT IS A/A/OX2 WITH FAMILY MEMBER AT THE BEDSIDE. PT IS ON 2L O2 VIA NC. GREEN CATH IS IN PLACE DRAINING CLEAR YELLOW URINE ON GRAVITY. GT IS IN PLACE WITH FEEDING HELD DUE TO 200ML OF RESIDUAL AT THIS TIME. RIGHT FOREARM G20 IV LINE IS PATIENT AND INTACT. NO SOB, NO PAIN AT THIS TIME, BREATHING EVEN AND NON LABORED , NO N/V AT THIS TIME. ALL SAFETY MEASURES ARE IN PLACE, BED IN LOW, LOCKED POSITION, CALL LIGHT IN PLACE.WILL CONTINUE TO MONITOR PATIENT CLOSELY.
--- NOTE | 2018-12-28 20:02 | NUR ---
MS1/RN AM SHIFT END NOTES ALL NEEDS MET. NO ACUTE CHANGE OF CONDITION NOTED DURING THE SHIFT. PT ENDORSED TO PM NURSE TO CONTINUE CARE. CL WITHIN REACHED AND SAFETY MAINTAINED.
--- NOTE | 2018-12-28 22:00 | NUR ---
RN NOTES GT FEEDING WILL CONTINUE TO BE HELD DUE TO GASTRIC RESIDUAL OF 200ML. WILL CONTINUE TO MONITOR PATIENT.
[2018-12-28] MEDS: TRAZODONE 50 MG TABLET PO SCH (22:36)
--- NOTE | 2018-12-29 | NUR ---
RN NOTES GT FEEDING WILL CONTINUE TO BE HELD DUE TO GASTRIC RESIDUAL OF 180ML. WILL CONTINUE TO MONITOR PATIENT.
[2018-12-29] MEDS ORDERED: MORPHINE SULFATE INJ 2 MG/ML DISP.SYRIN ONE (01:42)
[2018-12-29] MEDS ORDERED: ONDANSETRON HCL/PF 4 MG/2 ML VIAL ONE (01:42)
[2018-12-29] MEDS: IPRATROPIUM NEB FS 0.5 MG/2.5 ML AMPUL.NEB NEB SCH ×6 (02:38→22:32)
[2018-12-29] MEDS: ALBUTEROL FS 2.5 MG/3 ML VIAL.NEB NEB SCH ×6 (02:38→22:32)
[2018-12-29 04:00] VITALS: BP 145/79
--- NOTE | 2018-12-29 06:00 | NUR ---
RN NOTES GT FEEDING WILL CONTINUE TO BE HELD DUE TO GASTRIC RESIDUAL OF 130ML. WILL CONTINUE TO MONITOR PATIENT. Addendum: 12/29/18 at 0739 by MIMA BATEMAN RN PATIENT IS IN THE BED, A/A/OX2-3. NO ACUTE DISTRESS , NO SOB , NO PAIN DURING MY SHIFT. WILL ENDORSE PATIENT CARE TO AM RN FOR [facility].
[2018-12-29] MEDS: POLYVINYL ALCOHOL/POVIDONE 0.4 ML DROPERETTE EACHEYE SCH ×3 (06:20→20:36)
[2018-12-29] MEDS: ACETYLCYSTEINE 10% SOLN 400 MG/4 ML VIAL NEB SCH ×3 (07:13→22:32)
[2018-12-29 07:20] LABS: CALCIUM, SERUM 8.1 mg/dL (8.5-10.1); CARBON DIOXIDE 27 mmol/L (21-32); CHLORIDE 102 mmol/L (98-107); CREATININE 0.5 mg/dL (0.6-1.3); GLUCOSE 95 mg/dL (74-106); POTASSIUM 3.7 mmol/L (3.5-5.1); SODIUM SERUM 136 mmol/L (136-145); UREA NITROGEN, BLOOD 7 mg/dL (7-18)
[2018-12-29 07:40] LABS: HEMATOCRIT 44 % (39-51); LYMPHOCYTES # (AUTO) 0.3 /CMM (0.8-4.8); LYMPHOCYTES % (AUTO) 2.8 % (20.0-44.0); MEAN CORPUSCULAR HGB CONC 34 g/dl (31.0-36.0); MEAN CORPUSCULAR VOLUME 100 fL (80-96); MONOCYTES # (AUTO) 0.5 /CMM (0.1-1.30); MONOCYTES % (AUTO) 4.2 % (2.0-12.0); NEUTROPHILS # (AUTO) 10.6 /CMM (1.8-8.9); PLATELET COUNT (AUTO) 112 /CMM (150-450); RED BLOOD CELL COUNT(AUTO) 4.43 MIL/uL (4.5-6.0); WHITE BLOOD COUNT (AUTO) 11.4 K/uL (4.3-11.0)
[2018-12-29 08:00] VITALS: BP 155/86
--- NOTE | 2018-12-29 08:00 | NUR ---
MS1/RN AM SHIFT INITIAL NOTES RECEIVED PT AWAKE IN BED, PT A/O X 1-2, ABLE TO VERBALIZE HIS NEEDS, NO ACUTE CHANGE OF CONDITION NOTED. PT ON 2L O2 VIA N/C SATURATING @ 99%, RESPIRATIONS EVEN AND UNLABORED, LUNG SOUNDS DIMINISHED. GT FEEDING HELD, CHECKED GASTRIS MORE THAN 200CC, FEEDING HELD, WILL CHECKED AGAIN FOR RESIDUAL, TO REFER TO PRIMARY MD WHEN ROUNDING. IV SITE ON TKO, PATENT WITH NO S/S OF INFECTION. GREEN CATHETER INTACT WITH YELLOW URINE OUTPUT. PT IS COMFORTABLE, SIGNIFICANT OTHER AT BEDSIDE, SCHEDULED AM MEDS TO BE GIVEN. CL WITHIN REACHED AND SAFETY MAINTAINED. ON GOING MONITORING.
[2018-12-29] MEDS: ASPIRIN EC 81 MG TABLET.DR PO SCH (09:02)
[2018-12-29] MEDS: methylPREDNISolone SOD SUCC 40 MG/ML VIAL IV SCH ×2 (09:02→16:13)
[2018-12-29] MEDS: FINASTERIDE (5 MG) 5 MG TABLET PO SCH (09:02)
[2018-12-29] MEDS: METOPROLOL TARTRATE 25 MG TABLET PO SCH (09:03)
[2018-12-29] MEDS: DONEPEZIL 5 MG TABLET PO SCH (09:04)
[2018-12-29] MEDS: Z GUARD REMEDY 2 OZ OINT TP SCH (09:04)
[2018-12-29] MEDS: CLOTRIMAZOLE 1% 15 GM TUBE TP SCH ×2 (09:06→16:13)
[2018-12-29] MEDS: IV D5/ 0.9% NACL 1,000 ML IV PRN (10:43)
[2018-12-29] MEDS: METOCLOPRAMIDE HCL 10 MG/2 ML VIAL IV SCH ×2 (10:45→19:18)
[2018-12-29] MEDS: ACETAMINOPHEN 325 MG TABLET PO PRN (14:23)
[2018-12-29 16:00] VITALS: BP 151/67
[2018-12-29] MEDS: JEVITY 1.2 CAL 1,000 ML BOTTLE GT PRN (16:11)
--- NOTE | 2018-12-29 19:30 | NUR ---
MS RN OPENING NOTES RECEIVED PT AWAKE IN BED, PT A/O X 1-2, ABLE TO VERBALIZE HIS NEEDS, NO ACUTE CHANGE OF CONDITION NOTED. PT ON 2L O2 VIA N/C SATURATING WELL, RESPIRATIONS EVEN AND UNLABORED, GT FEEDING AT 35ML/HR. IV SITE NORMAL, NO S/S OF INFECTION. GREEN CATHETER INTACT WITH YELLOW URINE OUTPUT. PT IS COMFORTABLE, SIGNIFICANT OTHER AT BEDSIDE, ALL SAFETY MESURES ON, CALL LIGHT WITHIN REACH. WILL CONTINUE TO MONITOR.
--- NOTE | 2018-12-29 19:30 | NUR ---
MS1/RN AM SHIFT END NOTES ALL NEEDS MET. NO ACUTE CHANGE OF CONDITION NOTED DURING THE SHIFT. PT TOLERATING GT FEEDING, SINCE RECEIVING REGLAN, NO GASTRIC RESIDUAL, INCREASED RATE 35CC/HR. PT ENDORSED TO PM NURSE TO CONTINUE CARE.
[2018-12-29 20:00] VITALS: BP 124/60
[2018-12-29] MEDS: TRAZODONE 50 MG TABLET PO SCH (22:28)
[2018-12-30] MEDS: IPRATROPIUM NEB FS 0.5 MG/2.5 ML AMPUL.NEB NEB SCH ×6 (03:31→23:24)
[2018-12-30] MEDS: ALBUTEROL FS 2.5 MG/3 ML VIAL.NEB NEB SCH ×6 (03:31→23:24)
[2018-12-30] MEDS: METOCLOPRAMIDE HCL 10 MG/2 ML VIAL IV SCH ×3 (03:32→19:42)
[2018-12-30 04:00] VITALS: BP 128/77
[2018-12-30] MEDS: ACETAMINOPHEN 325 MG TABLET PO PRN (04:06)
[2018-12-30] MEDS: IV D5/ 0.9% NACL 1,000 ML IV PRN ×2 (04:12→20:30)
[2018-12-30] MEDS: POLYVINYL ALCOHOL/POVIDONE 0.4 ML DROPERETTE EACHEYE SCH ×3 (05:01→22:06)
--- NOTE | 2018-12-30 07:00 | NUR ---
MS RN OPENING NOTES RECEIVED PT IN BED SLEEPING, AROUSABLE BY TOUCH. PT A/O X 1. PT ON NC 2L SATURATING WELL, RESPIRATIONS EVEN AND UNLABORED, NO SIGN OF RESPIRATORY DISTRESS OR SOB NOTED. GT FEEDING AT 45ML/HR. RFA #20 IV D5 NS @ 75 ML/HR. GREEN CATHETER INTACT WITH YELLOW URINE OUTPUT. PT IS COMFORTABLE, SIGNIFICANT OTHER AT BEDSIDE, ALL SAFETY PRECAUTION APPLIED, BED LOCKED AND AT THE LOWEST POSITION. SIDE RAILS UPX3, CALL LIGHT WITHIN REACH. WILL CONTINUE TO MONITOR.
--- NOTE | 2018-12-30 07:13 | NUR ---
MS RN CLOSING NOTES, PATIENT IN BED SLEEPING, ALL NEEDS MET. NO ACUTE CHANGE OF CONDITION NOTED DURING THE SHIFT. PT TOLERATING GT FEEDING, SINCE RECEIVING REGLAN, NO GASTRIC RESIDUAL, INCREASED RATE TO 45CC/HR. PATIENT ENDORSED TO AM NURSE TO CONTINUE CARE.
[2018-12-30] MEDS: ACETYLCYSTEINE 10% SOLN 400 MG/4 ML VIAL NEB SCH ×3 (07:22→23:24)
[2018-12-30 08:00] VITALS: BP 165/88
[2018-12-30] MEDS: ASPIRIN EC 81 MG TABLET.DR PO SCH (09:01)
[2018-12-30] MEDS: DONEPEZIL 5 MG TABLET PO SCH (09:02)
[2018-12-30] MEDS: FINASTERIDE (5 MG) 5 MG TABLET PO SCH (09:02)
[2018-12-30] MEDS: METOPROLOL TARTRATE 25 MG TABLET PO SCH (09:04)
[2018-12-30] MEDS: methylPREDNISolone SOD SUCC 40 MG/ML VIAL IV SCH ×2 (09:04→18:15)
--- NOTE | 2018-12-30 09:20 | NUR ---
RM MS NOTE DR PEREZ AT BEDSIDE AND ORDERED STAT ABG B/C PT IS TOO SLEEPY. ORDER CARRIED OUT.
[2018-12-30 09:49] LABS: ABG BASE EXCESS 1.2 mmol/L; ABG OXYGEN SATURATION 93.5 % (92.0-98.5); ABG PCO2 36.5 mmHg (35.0-45.0); ABG PH 7.451 (7.350-7.450); ABG PO2 67.3 mmHg (75.0-100.0); AaDO2 125.4 mmHg; COHb 0.4 % (0.5-1.5); MetHb 0.6 % (0.0-1.5); O2Hb 92.6 % (94.0-97.0); SITE, ABG Right Brachial; VENT MODE, BG nasal cannula
[2018-12-30] MEDS ORDERED: CLOT15CR35 TP (10:20)
[2018-12-30] MEDS ORDERED: PRED20TA PO (10:20)
[2018-12-30] MEDS ORDERED: POLY30DR EACHEYE (10:20)
[2018-12-30] MEDS ORDERED: IPRA0.2S9 NEB (10:20)
[2018-12-30] MEDS ORDERED: LACT-209 GT (10:20)
[2018-12-30] MEDS ORDERED: ALBUT2 NEB (10:20)
[2018-12-30] MEDS ORDERED: METO-295 PO (10:20)
[2018-12-30] MEDS ORDERED: METO25TA20 PO (10:20)
--- NOTE | 2018-12-30 11:30 | NUR ---
RN MS NOTES RESIDUAL VOLUME 120 ML. TUBE FEEDING RATE INCREASED TO 50 ML/HR. GOAL IS 60 ML/HR.
[2018-12-30 12:03] LABS: HEMATOCRIT 42 % (39-51); HEMOGLOBIN 14.6 g/dL (13.5-17.5); LYMPHOCYTES # (AUTO) 0.6 /CMM (0.8-4.8); LYMPHOCYTES % (AUTO) 3.7 % (20.0-44.0); MEAN CORPUSCULAR HGB CONC 35 g/dl (31.0-36.0); MEAN CORPUSCULAR VOLUME 97 fL (80-96); MONOCYTES # (AUTO) 0.7 /CMM (0.1-1.30); MONOCYTES % (AUTO) 4.5 % (2.0-12.0); NEUTROPHILS # (AUTO) 13.7 /CMM (1.8-8.9); NEUTROPHILS % (AUTO) 91.8 % (43.0-81.0); PLATELET COUNT (AUTO) 110 /CMM (150-450)
[2018-12-30 12:05] LABS: CALCIUM, SERUM 8.5 mg/dL (8.5-10.1); CARBON DIOXIDE 29 mmol/L (21-32); CHLORIDE 101 mmol/L (98-107); CREATININE 0.5 mg/dL (0.6-1.3); GLUCOSE 120 mg/dL (74-106); MAGNESIUM 1.6 mg/dL (1.8-2.4); PHOSPHORUS 2.2 mg/dL (2.5-4.9); POTASSIUM 2.9 mmol/L (3.5-5.1); SODIUM SERUM 137 mmol/L (136-145); UREA NITROGEN, BLOOD 11 mg/dL (7-18)
--- NOTE | 2018-12-30 13:07 | NUR ---
RELAYED LABS TO [facility] AND GAVE ORDERS HOLD DISCHARGE AND REPLACE K AND MG.CM MADE AWARE.
[2018-12-30] MEDS ORDERED: POTASSIUM CHLORIDE 20 MEQ POWDER PACKET GT ONE (13:30)
[2018-12-30] MEDS ORDERED: Magnesium 1GM/D5W 100ML PREMIX PIGGYBACK IV ONE (13:30)
--- NOTE | 2018-12-30 13:30 | NUR ---
MS RN NOTES PT HAS POTASSIUM AND MAGNESIUM IV ORDER AT THE SAME TIME AND ONE IV LINE. ALREADY CHECKED WITH THE PHARMACY. STARTED MAGNESIUM AND AFTER THAT WILL START POTASSIUM.
[2018-12-30] MEDS: CLOTRIMAZOLE 1% 15 GM TUBE TP SCH ×2 (13:36→18:15)
[2018-12-30] MEDS: Z GUARD REMEDY 2 OZ OINT TP SCH (13:36)
--- NOTE | 2018-12-30 14:17 | NUR ---
RN MS NOTES LEFT FOREARM SKIN TEAR NOTED AFTER COTTON JAMMER TRYING TO GET BLOOD. PHOTO TAKEN, MEPILEX AND BANDAGE APPLIED AND WOUND CARE CONSULT ORDERED.
[2018-12-30] MEDS: POTASSIUM CL. PREMIX PERIPHER. 50 ML IV SCH ×5 (14:30→22:06)
--- NOTE | 2018-12-30 15:00 | NUR ---
RN MS NOTE THE FIRST BAG OF IV POTASSIUM INFUSED. PT COMPLAINED OF SEVERE PAIN. SIGNIFICANT OTHERS AT THE BEDSIDE REQUESTED TO DELAY THE OTHER INFUSION OF THE POTASSIUM. PT HAS ONLY ONE IV SITE AND BY THE MEANTIME IV MAGNESIUM (2 BAGS) INFUSED. CHARGE NURSE MADE AWARE. WILL ENDORSE TO THE SALES PLANNING COORDINATOR NURSE TO RUN THE REST OF THE BAGS.
[2018-12-30 16:00] VITALS: BP 162/84
[2018-12-30] MEDS: MGSO4/D5W 100 ML IV SCH ×2 (16:42→18:22)
[2018-12-30 20:00] VITALS: BP 113/57
--- NOTE | 2018-12-30 20:14 | NUR ---
MS RN CLOSING NOTES PATIENT IN BED SLEEPING, A/OX1. ON NC 2L SATURATING WELL. NO SIGN OF ACUTE RESPIRATORY DISTRESS OR SOB NOTED AT THIS TIME. NO ACUTE CHANGE OF CONDITION NOTED DURING THE SHIFT. G-TUBE FEEDING RATE INCREASED TO 55 ML/HR AND PT TOLERATING WELL. RESIDUAL VOLUME LESS THAN 100 ML. ALL NEEDS ATTENDED. SAFETY AND ASPIRATION PRECAUTION IN PLACE. PATIENT ENDORSED TO AM NURSE TO CONTINUE CARE.
--- NOTE | 2018-12-30 20:15 | NUR ---
RN OPENING NOTES RECEIVED REPORT FROM RAQUEL DE LA ROSA. PATIENT A/A/O X1-2, ABLE TO VERBALIZE SOME NEEDS AND STATE PAIN. BREATHING EVEN & UNLABORED, TOLERATING O2 @ 2LPM VIA NC. DENIES ANY SOB OR DIFFICULTY BREATHING. RADIAL PULSES PRESENT. RIGHT FOREARM IV #20 INTACT & PATENT W/ DRESSING CDI & IVF D5 NS INFUSING WELL @ 75 ML/HR. GREEN CATH DRAINING YELLOW URINE. DENIES ANY PAIN OR DISCOMFORT @ THIS TIME. TURNED & REPOSITIONED FOR COMFORT & HOB ELEVATED FOR ASPIRATION PRECAUTIONS. SAFETY MEASURES IN PLACE W/ SIDE RAILS UP & BED ALARM ON. WILL CONTINUE TO MONITOR.
[2018-12-30] MEDS: TRAZODONE 50 MG TABLET PO SCH (22:04)
[2018-12-31] MEDS ORDERED: POTASSIUM CL. PREMIX PERIPHER. 50 ML ONE (00:38)
[2018-12-31] MEDS: POTASSIUM CL. PREMIX PERIPHER. 50 ML IV SCH (00:41)
[2018-12-31] MEDS: IPRATROPIUM NEB FS 0.5 MG/2.5 ML AMPUL.NEB NEB SCH ×6 (03:36→23:35)
[2018-12-31] MEDS: ALBUTEROL FS 2.5 MG/3 ML VIAL.NEB NEB SCH ×6 (03:36→23:35)
[2018-12-31 04:00] VITALS: BP 108/71
[2018-12-31] MEDS: METOCLOPRAMIDE HCL 10 MG/2 ML VIAL IV SCH ×3 (04:10→20:04)
[2018-12-31] MEDS: POLYVINYL ALCOHOL/POVIDONE 0.4 ML DROPERETTE EACHEYE SCH ×3 (05:35→21:37)
[2018-12-31 06:26] LABS: BASOPHILS % (AUTO) 0.3 % (0.0-2.0); HEMATOCRIT 39 % (39-51); HEMOGLOBIN 13.6 g/dL (13.5-17.5); LYMPHOCYTES # (AUTO) 0.3 /CMM (0.8-4.8); LYMPHOCYTES % (AUTO) 2.2 % (20.0-44.0); MEAN CORPUSCULAR HGB CONC 35 g/dl (31.0-36.0); MEAN CORPUSCULAR VOLUME 97 fL (80-96); MONOCYTES # (AUTO) 0.6 /CMM (0.1-1.30); MONOCYTES % (AUTO) 4.3 % (2.0-12.0); NEUTROPHILS # (AUTO) 14.1 /CMM (1.8-8.9); NEUTROPHILS % (AUTO) 93.2 % (43.0-81.0); PLATELET COUNT (AUTO) 108 /CMM (150-450); RED BLOOD CELL COUNT(AUTO) 4.01 MIL/uL (4.5-6.0); WHITE BLOOD COUNT (AUTO) 15.1 K/uL (4.3-11.0)
[2018-12-31 06:56] LABS: CALCIUM, SERUM 8.4 mg/dL (8.5-10.1); CARBON DIOXIDE 27 mmol/L (21-32); CHLORIDE 103 mmol/L (98-107); CREATININE 0.5 mg/dL (0.6-1.3); GLUCOSE 169 mg/dL (74-106); MAGNESIUM 2.1 mg/dL (1.8-2.4); PHOSPHORUS 1.7 mg/dL (2.5-4.9); POTASSIUM 4.2 mmol/L (3.5-5.1); SODIUM SERUM 138 mmol/L (136-145); UREA NITROGEN, BLOOD 13 mg/dL (7-18)
--- NOTE | 2018-12-31 07:21 | NUR ---
MS RN OPENING NOTE RECEIVED REPORT FROM NOC SHIFT. PT ASLEEP IN BED, 02 VIA NC 2L/MIN, RESPIRATIONS EASY AND UNLABORED, NO SIGNS OF RESPIRATORY DISTRESS NOTED, GREEN CATHETER DRAINING CLEAR YELLOW URINE, RIGHT FOREARM G20 INFUSING D5 NS AT 75ML/HR, NO SIGNS OF INFILTRATION NOTED. BED IN LOW POSITION, LOCKED, CALL LIGHT WITHIN REACH.
[2018-12-31] MEDS: ACETYLCYSTEINE 10% SOLN 400 MG/4 ML VIAL NEB SCH ×3 (07:45→23:35)
[2018-12-31 08:00] VITALS: BP 127/70
[2018-12-31] MEDS: FINASTERIDE (5 MG) 5 MG TABLET PO SCH (08:02)
[2018-12-31] MEDS: ASPIRIN EC 81 MG TABLET.DR PO SCH (08:02)
[2018-12-31] MEDS: POTASSIUM CHLORIDE 20 MEQ TAB.PRT.SR PO SCH (08:02)
[2018-12-31] MEDS: methylPREDNISolone SOD SUCC 40 MG/ML VIAL IV SCH ×2 (08:03→16:22)
[2018-12-31] MEDS: METOPROLOL TARTRATE 25 MG TABLET PO SCH (08:03)
[2018-12-31] MEDS: DONEPEZIL 5 MG TABLET PO SCH (08:03)
[2018-12-31] MEDS: ACETAMINOPHEN 325 MG TABLET PO PRN ×2 (08:48→16:22)
[2018-12-31] MEDS: IV D5/ 0.9% NACL 1,000 ML IV PRN (09:14)
[2018-12-31] MEDS: CLOTRIMAZOLE 1% 15 GM TUBE TP SCH ×2 (09:19→17:03)
[2018-12-31] MEDS: Z GUARD REMEDY 2 OZ OINT TP SCH (09:19)
[2018-12-31] MEDS ORDERED: K PHOS NEUTRAL 250 MG TABLET PO ONE (10:30)
--- NOTE | 2018-12-31 10:57 | NUR ---
WOUND CARE CONSULT PATIENT PRESENTS WITH VERY FRAGILE SKIN AND MULTIPLE AREAS OF ECHYMOSIS TO THE LEFT ARM WITH SCATTERED SMALL SKIN TEARS TO THE LEFT FOREARM. RECOMMEND CLEANSE WITH NS, PAT DRY, APPLY XEROFORM GAUZE, COVER WITH 4X4 GAUZE AND GENTLY WRAP WITH KERLIX. AVOID TAPE TO PATIENT'S SKIN. DISCUSSED WITH NURSING AT THE BEDSIDE. WILL SEE PRN.
[2018-12-31 16:00] VITALS: BP 121/62
[2018-12-31] MEDS: JEVITY 1.2 CAL 1,000 ML BOTTLE GT PRN (17:15)
--- NOTE | 2018-12-31 19:07 | NUR ---
MS RN CLOSING NOTE PT AWAKE IN BED, ALERT AND ORIENTED X 1, FAMILY BY BEDSIDE. ON O2 VIA NC 2L/MIN, SATURATING WELL. RESPIRATIONS EASY AND UNLABORED, NO SIGNS OF RESPIRATORY DISTRESS NOTED. GREEN CATHETER DRAINED 850ML OF YELLOW URINE THROUGHOUT SHIFT. D5 NS INFUSING AT 75ML/HR INTO RIGHT FOREARM G20, NO SIGNS OF INFILTRATION NOTED. TURNED AND REPOSITIONED PT EVERY 2 HOURS, BED IN LOW POSITION, LOCKED, CALL LIGHT WITHIN REACH. PROVIDED SAFETY AND COMFORT TO PT. WILL ENDORSE TO NOC SHIFT NURSE.
[2018-12-31 20:00] VITALS: BP 151/79
--- NOTE | 2018-12-31 20:24 | NUR ---
RN OPENING NOTES RECEIVED REPORT FROM RENEE DE LA ROSA. PATIENT A/A/O X1-2, ABLE TO VERBALIZE SOME NEEDS AND STATE PAIN. BREATHING EVEN & UNLABORED, TOLERATING O2 @ 2LPM VIA NC. DENIES ANY SOB OR DIFFICULTY BREATHING. RADIAL PULSES PRESENT. RIGHT FOREARM IV #20 INTACT & PATENT W/ DRESSING CDI & IVF D5 NS INFUSING WELL @ 75 ML/HR. G-TUBE PATENT & FLUSHING WELL W/ GTF JEVITY RUNNING @ 60 ML/HR, MINIMAL RESIDUAL NOTED. GREEN CATH DRAINING YELLOW URINE. DENIES ANY PAIN OR DISCOMFORT @ THIS TIME. TURNED & REPOSITIONED FOR COMFORT & HOB ELEVATED FOR ASPIRATION PRECAUTIONS. SAFETY MEASURES IN PLACE W/ SIDE RAILS UP & BED ALARM ON. WILL CONTINUE TO MONITOR.
[2018-12-31] MEDS: TRAZODONE 50 MG TABLET PO SCH (21:37)
[2019-01-01] MEDS: ALBUTEROL FS 2.5 MG/3 ML VIAL.NEB NEB SCH ×4 (03:27→15:57)
[2019-01-01] MEDS: IPRATROPIUM NEB FS 0.5 MG/2.5 ML AMPUL.NEB NEB SCH ×4 (03:27→15:57)
[2019-01-01] MEDS: METOCLOPRAMIDE HCL 10 MG/2 ML VIAL IV SCH ×2 (03:55→11:20)
[2019-01-01 04:00] VITALS: BP 122/77
[2019-01-01] MEDS: POLYVINYL ALCOHOL/POVIDONE 0.4 ML DROPERETTE EACHEYE SCH ×2 (05:42→13:28)
[2019-01-01 06:43] LABS: CALCIUM, SERUM 8.1 mg/dL (8.5-10.1); CARBON DIOXIDE 28 mmol/L (21-32); CHLORIDE 102 mmol/L (98-107); CREATININE 0.4 mg/dL (0.6-1.3); GLUCOSE 133 mg/dL (74-106); MAGNESIUM 1.7 mg/dL (1.8-2.4); PHOSPHORUS 2.1 mg/dL (2.5-4.9); POTASSIUM 4.2 mmol/L (3.5-5.1); SODIUM SERUM 136 mmol/L (136-145); UREA NITROGEN, BLOOD 13 mg/dL (7-18)
[2019-01-01 06:51] LABS: BASOPHILS % (AUTO) 0.1 % (0.0-2.0); HEMATOCRIT 38 % (39-51); HEMOGLOBIN 13.1 g/dL (13.5-17.5); LYMPHOCYTES # (AUTO) 0.4 /CMM (0.8-4.8); LYMPHOCYTES % (AUTO) 2.5 % (20.0-44.0); MEAN CORPUSCULAR HGB CONC 35 g/dl (31.0-36.0); MEAN CORPUSCULAR VOLUME 98 fL (80-96); MONOCYTES # (AUTO) 0.8 /CMM (0.1-1.30); MONOCYTES % (AUTO) 4.5 % (2.0-12.0); NEUTROPHILS % (AUTO) 92.9 % (43.0-81.0); PLATELET COUNT (AUTO) 93 /CMM (150-450); RED BLOOD CELL COUNT(AUTO) 3.84 MIL/uL (4.5-6.0); WHITE BLOOD COUNT (AUTO) 17.3 K/uL (4.3-11.0)
[2019-01-01] MEDS: ACETYLCYSTEINE 10% SOLN 400 MG/4 ML VIAL NEB SCH ×2 (07:41→15:57)
[2019-01-01 08:00] VITALS: BP 139/66
[2019-01-01 08:50] LABS: LYMPHOCYTES % (MANUAL) 2 % (16-48); MONOCYTES % (MANUAL) 6 % (0-11.0); NEUTROPHILS % (MANUAL) 92 (42-76)
[2019-01-01] MEDS: methylPREDNISolone SOD SUCC 40 MG/ML VIAL IV SCH (09:30)
[2019-01-01] MEDS: FINASTERIDE (5 MG) 5 MG TABLET PO SCH (09:30)
[2019-01-01] MEDS: METOPROLOL TARTRATE 25 MG TABLET PO SCH (09:31)
[2019-01-01] MEDS: POTASSIUM CHLORIDE 20 MEQ TAB.PRT.SR PO SCH (09:31)
[2019-01-01] MEDS: DONEPEZIL 5 MG TABLET PO SCH (09:31)
[2019-01-01] MEDS: ASPIRIN EC 81 MG TABLET.DR PO SCH (09:31)
[2019-01-01] MEDS: CLOTRIMAZOLE 1% 15 GM TUBE TP SCH (09:47)
[2019-01-01] MEDS: Z GUARD REMEDY 2 OZ OINT TP PRN (09:47)
[2019-01-01] MEDS: Z GUARD REMEDY 2 OZ OINT TP SCH (09:48)
[2019-01-01] MEDS ORDERED: PRED20TA PO (10:37)
[2019-01-01] MEDS ORDERED: NEUTRA PHOS 1 POWD.PACKET NG ONE (11:00)
[2019-01-01 16:00] VITALS: BP 146/76
--- NOTE | 2019-01-01 18:58 | NUR ---
MS RN NOTES PT DISCHARGED WITH AMBULANCE ON GURNEY TO HOME WITH HOME HEALTH. PARTNER AT BEDSIDE. GREEN CATH REMOVED. WOUND PICS TAKEN. IV REMOVED. DISCHARGE INSTRUCTIONS GIVEN/PRESCRIPTIONS. PT ADMITTED/DISCHARGED WITH NO BELONGINGS. PT EDUCATION GIVEN. PRESCRIPTION FAXED TO [facility]
== END 2019-01-01 18:51 | disposition home health service (06) | DRG 177 ==
LOC: ER 10:43 → ICU 12:25 → TELE-TD 12-24 22:15 → MEDSG1 12-25 09:33
PROVIDERS: ADMIT Nurse Practitioner Acute Care; ATTEND Student in an Organized Health Care Education/Training Program
PROC: 0DH63UZ Insertion of Feeding Device into Stomach, Percutaneous Approach (ICD-10-PCS; principal; 2018-12-28)
DX: J69.0 Pneumonitis due to inhalation of food and vomit (principal); J96.01 Acute respiratory failure with hypoxia; E43 Unspecified severe protein-calorie malnutrition; G93.41 Metabolic encephalopathy; N17.9 Acute kidney failure, unspecified; E87.2 Acidosis; Z68.1 Body mass index [BMI] 19.9 or less, adult; R64 Cachexia; J44.0 Chronic obstructive pulmonary disease with (acute) lower respiratory infection; J44.1 Chronic obstructive pulmonary disease with (acute) exacerbation; E86.0 Dehydration; E87.6 Hypokalemia; I10 Essential (primary) hypertension; I25.10 Atherosclerotic heart disease of native coronary artery without angina pectoris; K21.9 Gastro-esophageal reflux disease without esophagitis; R13.10 Dysphagia, unspecified; R62.7 Adult failure to thrive; Z87.891 Personal history of nicotine dependence; Z95.5 Presence of coronary angioplasty implant and graft; G31.83 Neurocognitive disorder with Lewy bodies; F02.80 Dementia in other diseases classified elsewhere, unspecified severity, without behavioral disturbance, psychotic disturbance, mood disturbance, and anxiety; T17.990A Other foreign object in respiratory tract, part unspecified in causing asphyxiation, initial encounter; X58.XXXA Exposure to other specified factors, initial encounter; Y93.9 Activity, unspecified; Y92.009 Unspecified place in unspecified non-institutional (private) residence as the place of occurrence of the external cause; L89.621 Pressure ulcer of left heel, stage 1; L89.611 Pressure ulcer of right heel, stage 1; S81.811A Laceration without foreign body, right lower leg, initial encounter; M62.50 Muscle wasting and atrophy, not elsewhere classified, unspecified site; N40.0 Benign prostatic hyperplasia without lower urinary tract symptoms; J15.9 Unspecified bacterial pneumonia; Z79.82 Long term (current) use of aspirin; D72.829 Elevated white blood cell count, unspecified
CPT/HCPCS: 31720; 36415; 36600; 43246; 71045-TC; 74230-TC; 80048-TC; 80061-TC; 80076-TC; 81000-TC; 83605-TC; 83735-TC; 83880; 84100-TC; 84439-TC; 84443-TC; 84484-TC; 85025-TC; 85730-TC; 87040-TC; 87081-TC; 87086-TC; 92526; 92611-TC; 93307-TC; 94799-TC; A4216; A4349; G0378; J0690; J1956; J2270; J2405; J2704; J2765; J2920; J2930; J3475; J3480; J3490; J7030; J7042; J7050; Q9967

== ENCOUNTER 2019-01-02 13:24 | Inpatient (IN) | payer OTHER ==
[~2019-01-02] VITALS: Ht 177.8 cm; Wt 59.0 kg
[2019-01-02] VITALS (27 sets, daily range): BP systolic 72–133; BP diastolic 17–80
[~2019-01-02 13:24] MED LIST: ALBUT2 NEB; ALFU10TA10 PO; ASPI-605 PO; ATOR10TA PO; CLOT15CR35 TP; DONE5TAB7 PO; FINA5TAB3 PO; IPRA0.2S9 NEB; LACT-209 GT; METO-295 PO; METO25TA20 PO; METO25TA6 PO; OMEP20TA20 PO; POLY30DR EACHEYE; PRED20TA PO; TRAZ-182 PO
--- NOTE | 2019-01-02 13:26 | NUR ---
IV LINE ESTABLISHED G18 R HAND.
--- NOTE | 2019-01-02 13:30 | NUR ---
ETOMIDATE 10MG AND SUCCINYLCHOLINE 100MG IVP GIVEN VERBAL ORDERED BY .
--- NOTE | 2019-01-02 13:33 | NUR ---
ET TUBE INSERTED BY , ET SIZE 7.5, 21 AT THE LIP, +COLOR CHANGE, +BILATERAL BREATH SOUNDS.
--- NOTE | 2019-01-02 13:51 | NUR ---
reece cath applied ua sent to lab labs drawn sent to lab . rx at bedside xray done
--- NOTE | 2019-01-02 13:52 | NUR ---
rt hand 18g iv ns infusing well
[2019-01-02] MEDS ORDERED: IV NS 0.9% 1,000 ML BAG IV ONE ×4 (14:00→23:30)
[2019-01-02] MEDS ORDERED: SUCCINYLCHOLINE CHLORIDE 20 MG/ML VIAL IV ONE ×2 (14:00→15:02)
[2019-01-02] MEDS ORDERED: PIPERACILLIN /TAZOBACTAM 3.375 G in IV D5W 50 ML IV ONE (14:00)
[2019-01-02] MEDS ORDERED: ETOMIDATE 2 MG/ML VIAL IV ONE ×2 (14:00→15:02)
[2019-01-02 14:03] LABS: BASOPHILS % (AUTO) 0.1 % (0.0-2.0); HEMATOCRIT 37 % (39-51); HEMOGLOBIN 12.5 g/dL (13.5-17.5); LYMPHOCYTES # (AUTO) 0.7 /CMM (0.8-4.8); LYMPHOCYTES % (AUTO) 3.3 % (20.0-44.0); MEAN CORPUSCULAR HGB CONC 34 g/dl (31.0-36.0); MEAN CORPUSCULAR VOLUME 100 fL (80-96); MONOCYTES # (AUTO) 0.7 /CMM (0.1-1.30); MONOCYTES % (AUTO) 3.3 % (2.0-12.0); NEUTROPHILS # (AUTO) 19.1 /CMM (1.8-8.9); NEUTROPHILS % (AUTO) 93.3 % (43.0-81.0); PLATELET COUNT (AUTO) 100 /CMM (150-450); RED BLOOD CELL COUNT(AUTO) 3.64 MIL/uL (4.5-6.0); WHITE BLOOD COUNT (AUTO) 20.5 K/uL (4.3-11.0)
[2019-01-02 14:06] LABS: APPEARANCE,URINE Clear (CLEAR); BILIRUBIN,URINE Negative (NEGATIVE); BLOOD, URINE Trace-intact Ery/uL (NEGATIVE); COLOR,URINE Yellow (YELLOW); KETONES,URINE Negative (NEGATIVE); LEUKOCYTE ESTERASE ,URINE Negative (NEGATIVE); NITRITE, URINE Negative (NEGATIVE); PH,URINE 8.5 (5.0-8.0); PROTEIN,URINE Negative (NEGATIVE); UGLUCOSE Negative (NEGATIVE)
--- NOTE | 2019-01-02 14:06 | NUR ---
RT NOTE PT INTUBATED PER MD ORDER. 7.5 ETT 21 CM AT LIP. CUFF INFLATED. ETT SECURE. VENTILATOR SETTINGS AC 16 500 100% +5. ALARMS SET PER PROTOCOL AND AUDIBLE. VENT PLUGGED IN TO RED OUTLET. AMBU BAG AT BED SIDE. NO DISTRESS NOTED. Addendum: 01/02/19 at 1408 by ANTONIETTA HUMPHREYS RT Amended: Links added.
[2019-01-02 14:11] LABS: CALCIUM, SERUM 7.7 mg/dL (8.5-10.1); CARBON DIOXIDE 30 mmol/L (21-32); CHLORIDE 103 mmol/L (98-107); CREATININE 0.5 mg/dL (0.6-1.3); GLUCOSE 169 mg/dL (74-106); SODIUM SERUM 137 mmol/L (136-145); UREA NITROGEN, BLOOD 30 mg/dL (7-18)
[2019-01-02 14:12] LABS: BACTERIA,URINE Few /HPF (None Seen); RBC,URINE 0-2 /HPF (0-2); SQUAMOUS EPITHELIAL CELL,UR Few /HPF (None Seen); WBC,URINE 0-2 /HPF (0-3)
[2019-01-02] MEDS ORDERED: PROPOFOL 100 ML ONE (14:18)
[2019-01-02] MEDS ORDERED: IV NS 0.9% 1,000 ML IV PRN ×3 (14:19→23:30)
[2019-01-02 14:26] LABS: BILIRUBIN,DIRECT 0.3 mg/dL (0.0-0.2)
[2019-01-02 14:27] LABS: ALANINE AMINOTRANSFERASE 113 U/L (12-78); ALBUMIN 1.9 g/dL (3.4-5.0); ALKALINE PHOSPHATASE 132 U/L (46-116); ASPARTATE AMINOTRANSFERASE 58 U/L (15-37); TOTAL PROTEIN, SERUM 3.9 g/dL (6.4-8.2)
[2019-01-02] MEDS ORDERED: HYDROCODONE/APAP 5/325MG 1 EACH TABLET PO PRN (14:30)
[2019-01-02] MEDS ORDERED: MAGNESIUM HYDROXIDE 30 ML UDC PO PRN (14:30)
[2019-01-02] MEDS ORDERED: ZOLPIDEM TARTRATE 5 MG TABLET PO PRN (14:30)
[2019-01-02] MEDS ORDERED: MAG HYDROX/AL HYDROX/SIMETH 30 ML UDC PO PRN (14:30)
[2019-01-02] MEDS ORDERED: ONDANSETRON HCL/PF 4 MG/2 ML VIAL IVP PRN (14:30)
[2019-01-02] MEDS ORDERED: ACETAMINOPHEN 325 MG TABLET PO PRN (14:30)
[2019-01-02] MEDS ORDERED: FEE PK DOSING 1 MIN EA MC ONE (14:47)
--- NOTE | 2019-01-02 15:00 | NUR ---
report given at bedside transfered to icu
--- NOTE | 2019-01-02 15:10 | NUR ---
RN NOTE: RECEIVED PATIENT IN ROOM 261 FROM ER AND BEDSIDE REPORT WAS RECEIVED FROM Matt MILES, ICU CN. PATIENT WAS INTUBATED AT ER WITH 7.5 ETT AND ATTACHED TO LIP LINE @21CM. VENT SETTING OF AC 16 TV 500 FIO2 100% PEEP 5. PATIENT WAS SATURATING 80-85%. RESPIRATION WAS EVEN AND UNLABORED. PATIENT WAS ATTACHED TO SUBCONTRACTS MANAGER SR HR= 75. (L) AND (R) HAND IV SITE WAS NOTED INTACT AND PATENT. (R) HAND WAS INFUSING A NS IV BOLUS AND (L) HAND IV SITE WAS INFUSING A PROPOFOL [address] MARTINEZ WAS INFORMED OF THE PATIENT'S ADMISSION TO THE UNIT AND WITH ADMISSION ORDERS. GREEN CATHETER WAS IN PLACED WITH YELLOW URINE DRAINING TO GRAVITY. COMPLETE BODY ASSESSMENT WAS DONE. PATIENT WAS NOTED WITH COOL EXTREMITIES. BED ALARMED AND LOCKED AT ALL TIMES. GT WAS CLAMPED. HOB ELEVATED. CALL LIGHT WITHIN REACH. AND NEEDS ANTICIPATED.
[2019-01-02 15:31] LABS: ABG BASE EXCESS -0.2 mmol/L; ABG OXYGEN SATURATION 83.4 % (92.0-98.5); ABG PCO2 55.5 mmHg (35.0-45.0); ABG PH 7.305 (7.350-7.450); ABG PO2 54.7 mmHg (75.0-100.0); AaDO2 602.8 mmHg; COHb 0.6 % (0.5-1.5); MetHb 0.6 % (0.0-1.5); O2Hb 82.4 % (94.0-97.0); PEEP,BG 5 cm H2O; SITE, ABG Left Radial; VENT MODE, BG AC 16 500 100% +5; VT, ABG 500 mL
--- NOTE | 2019-01-02 15:46 | NUR ---
RN NOTE: CALLED AND SPOKE WITH DR. COLEMAN REGARDING THE ABG RESULT. MD WITH NEW ORDER FOR THE VENT CHANGES. ORDER NOTED AND CARRIED OUT. PATIENT'S PARTNER FARSHAD MOY MADE AWARE AND WAS PRESENT AT THE BEDSIDE.
--- NOTE | 2019-01-02 15:50 | NUR ---
RN NOTE: ROMEO MOY, PARTNER VERBALIZED THAT THE PATIENT WOULD BE FULL CODE. CODE STATUS WAS ORDERED.
--- NOTE | 2019-01-02 16:00 | NUR ---
RN NOTE: NS 700ML IV BOLUS FROM ER WAS INFUSED IN THE UNIT.
[2019-01-02] MEDS: PROPOFOL 100 ML IV PRN (16:17)
[2019-01-02] MEDS: VANCOMYCIN 0.75 GM in IV D5W 250 ML IV SCH (17:10)
[2019-01-02] MEDS: NOREPINEPHRINE 16 MG in IV D5W 500 ML IV PRN (17:47)
[2019-01-02 17:49] LABS: MetHb 0.6 % (0.0-1.5)
--- NOTE | 2019-01-02 17:51 | NUR ---
RN NOTE: DR. COLEMAN PRESENT IN THE UNIT AND WAS INFORMED OF THE CURRENT ABG RESULT. MD WITH NEW ORDER, NOTED AND CARRIED OUT. PATIENT WAS STILL SATURATING 75% WITH CURRENT MECHANICAL VENT SETTING. FARSHAD MOY, PARTNER REMAINED AT THE BEDSIDE.
--- NOTE | 2019-01-02 18:30 | NUR ---
RN NOTE: CALLED AND PAGED DR. MARTINEZ REGARDING THE PATIENT'S PREVIOUS MEDICATION ORDERS FROM YESTERDAY'S HOSPITALIZATION. CALLED [facility] AND SPOKE WITH CHAKA. AWAITING FOR MD'S RESPONSE.
--- NOTE | 2019-01-02 19:50 | NUR ---
RN NOTE: BEDSIDE REPORT WAS GIVEN TO PM SHIFT NURSE FOR CONTINUITY OF CARE. INFORMED BOB, LEARNING AND DEVELOPMENT INTERN TO F/U WITH RT REGARDING THE ABG. PATIENT ON LEVOPHED AND DIPRIVAN (PLEASE SEE IV FLOW SHEET).
[2019-01-02 20:03] LABS: ABG BASE EXCESS -4.7 mmol/L; ABG OXYGEN SATURATION 68.7 % (92.0-98.5); ABG PCO2 54.2 mmHg (35.0-45.0); ABG PH 7.249 (7.350-7.450); ABG PO2 41.3 mmHg (75.0-100.0); AaDO2 617.5 mmHg; COHb 0.3 % (0.5-1.5); MetHb 0.8 % (0.0-1.5); O2Hb 67.9 % (94.0-97.0); PEEP,BG 5 cm H2O; SITE, ABG Right Radial; VT, ABG 600 mL
--- NOTE | 2019-01-02 20:30 | NUR ---
RAIL TECHNICIAN NOTE SPOKE WITH REVENUE INTEGRITY ANALYST DR. LUZ WITH ORDERS TO BOLUS 1L OF NS X1, INCREASE IV FLUIDS TO 125 ML/HR, INCREASE PEEP TO 10 AND RECHECK ABG. ORDERS NOTED AND CARRIED OUT. WILL MONITOR.
[2019-01-02] MEDS ORDERED: PHENYLEPHRINE 40 MG in IV D5W 250 ML IV PRN (21:00)
--- NOTE | 2019-01-02 21:00 | NUR ---
JUNIOR PROJECT COORDINATOR NOTE SPOKE WITH DEEP SUBMERGENCE VEHICLE OPERATOR DR. GARCIA WITH ORDERS TO START [place] DRIP TO KEEP MAP ABOVE 60-65. ORDERS NOTED AND CARRIED OUT.
[2019-01-02] MEDS: PIPERACILLIN /TAZOBACTAM 4.5 G in IV D5W 50 ML IV SCH (21:27)
[2019-01-02] MEDS: ENOXAPARIN SODIUM 40 MG/0.4 ML DISP.SYRIN SQ SCH (21:30)
--- NOTE | 2019-01-02 22:55 | NUR ---
FACE BURLER NOTE NOTIFIED DR LUZ OF ABG RESULTS WITH ORDERS TO BOLUS 1L OF NS X1, CXR, CBC, BMP, ABG IN AM. ALSO WANTS NEPHROLOGY CONSULT IN AM. ORDERS NOTED AND CARRIED OUT.
[2019-01-02] MEDS ORDERED: IV NS 0.9% 1,000 ML IV ONE (23:30)
[2019-01-03] VITALS (93 sets, daily range): BP systolic 49–190; BP diastolic 20–170
[2019-01-03 02:15] LABS: BASOPHILS # (AUTO) 0.1 /CMM (0.0-0.2); BASOPHILS % (AUTO) 0.4 % (0.0-2.0); HEMATOCRIT 41 % (39-51); HEMOGLOBIN 13.7 g/dL (13.5-17.5); LYMPHOCYTES # (AUTO) 0.4 /CMM (0.8-4.8); LYMPHOCYTES % (AUTO) 1.4 % (20.0-44.0); MEAN CORPUSCULAR HGB CONC 34 g/dl (31.0-36.0); MEAN CORPUSCULAR VOLUME 100 fL (80-96); MONOCYTES # (AUTO) 0.1 /CMM (0.1-1.30); MONOCYTES % (AUTO) 0.3 % (2.0-12.0); NEUTROPHILS % (AUTO) 97.9 % (43.0-81.0); PLATELET COUNT (AUTO) 115 /CMM (150-450); RED BLOOD CELL COUNT(AUTO) 4.07 MIL/uL (4.5-6.0); WHITE BLOOD COUNT (AUTO) 29.7 K/uL (4.3-11.0)
[2019-01-03 02:28] LABS: ALANINE AMINOTRANSFERASE 91 U/L (12-78); ALBUMIN 1.8 g/dL (3.4-5.0); ALKALINE PHOSPHATASE 124 U/L (46-116); ASPARTATE AMINOTRANSFERASE 28 U/L (15-37); BILIRUBIN,TOTAL 0.8 mg/dL (0.2-1.0); CALCIUM, SERUM 7.2 mg/dL (8.5-10.1); CARBON DIOXIDE 22 mmol/L (21-32); CHLORIDE 105 mmol/L (98-107); CREATININE 0.6 mg/dL (0.6-1.3); GLUCOSE 104 mg/dL (74-106); MAGNESIUM 1.3 mg/dL (1.8-2.4); PHOSPHORUS 3.9 mg/dL (2.5-4.9); POTASSIUM 3.6 mmol/L (3.5-5.1); SODIUM SERUM 134 mmol/L (136-145); TOTAL PROTEIN, SERUM 3.9 g/dL (6.4-8.2); UREA NITROGEN, BLOOD 35 mg/dL (7-18)
[2019-01-03] MEDS: PIPERACILLIN /TAZOBACTAM 4.5 G in IV D5W 50 ML IV SCH ×4 (02:41→21:08)
[2019-01-03 03:00] LABS: BAND % (MANUAL) 6 % (0.0-5.0); LYMPHOCYTES % (MANUAL) 2 % (16-48); METAMYELOCYTES % 1 % (0-0); NEUTROPHILS % (MANUAL) 91 (42-76)
[2019-01-03] MEDS: VANCOMYCIN 0.75 GM in IV D5W 250 ML IV SCH ×2 (03:37→16:26)
[2019-01-03] MEDS ORDERED: NOREPINEPHRINE 4 MG/4 ML AMPUL IV ONE (03:46)
[2019-01-03] MEDS: NOREPINEPHRINE 16 MG in IV D5W 500 ML IV PRN ×3 (04:38→21:24)
[2019-01-03] MEDS ORDERED: PHENYLEPHRINE 10 MG/ML VIAL ONE (06:12)
--- NOTE | 2019-01-03 07:15 | NUR ---
PLASTIC INJECTION MOLD MAKER NOTES RECEIVED BEDSIDE REPORT. PATIENT INTUBATED 7. AT THE [facility]. TOLERATING SETTINGS AT THIS TIME. ABGS DRAWN. A/O X0 NON RESPONSIVE OPENING EYES SPONTANEOUSLY. UNABLE TO FOLLOW COMMANDS. KEVIN PICC LINE RUNNING LEVO @ 40MCG AND [place] @ 140 MCG B/P 111/88. IV TO L HAND # 20 GAUGE SL AND RIGHT HAND # 20 GAUGE SL/. GREEN CATH NO URINE OUTPUT NOTED RESPIRATIONS RAPID @ 31 HR TACHY 140"S ON MONITOR. BILATERAL WEEPING NOTED TO UPPER EXTREMITIES CORE TEMP 98.3. MULTIPLE PETECHIAE AND SCABS ON BLE. GT PLACEMENT CONFIRMED AND NPO AT THIS TIME. SAFETY AND ASPIRATION PRECAUTIONS IN PLACE BED IN LOW LOCKED POSITION. F/U WITH ALL MDS PER DR LUZ. WILL CONT TO MONITOR ACCORDINGLY
[2019-01-03 09:30] LABS: ABG BASE EXCESS -13.5 mmol/L; ABG OXYGEN SATURATION 99.2 % (92.0-98.5); ABG PCO2 47.4 mmHg (35.0-45.0); ABG PO2 273.8 mmHg (75.0-100.0); AaDO2 391.8 mmHg; COHb 0.5 % (0.5-1.5); MetHb 0.2 % (0.0-1.5); O2Hb 98.5 % (94.0-97.0); PEEP,BG 10 cm H2O; SITE, ABG Right Radial; VT, ABG 600 mL
[2019-01-03] MEDS: FLUDROCORTISONE 0.1 MG TABLET JT SCH ×3 (11:14→23:04)
[2019-01-03] MEDS: HYDROCORTISONE SOD SUCCINATE 100 MG/2 ML VIAL IV SCH ×3 (11:19→17:11)
[2019-01-03] MEDS: Sodium Bicarbonate 150 MEQ in IV D5W 1,000 ML IV PRN ×2 (11:20→22:22)
[2019-01-03] MEDS: PHENYLEPHRINE 80 MG in IV D5W 250 ML IV PRN (11:20)
[2019-01-03] MEDS: Magnesium 1GM/D5W 100ML PREMIX 100 ML IV SCH ×4 (11:58→17:08)
[2019-01-03 12:45] LABS: OCCULT BLOOD STOOL POSITIVE (NEGATIVE)
[2019-01-03] MEDS: IPRATROPIUM NEB FS 0.5 MG/2.5 ML AMPUL.NEB NEB SCH ×4 (13:00→23:39)
[2019-01-03] MEDS: ALBUTEROL FS 2.5 MG/0.5 ML VIAL.NEB NEB SCH ×4 (13:00→23:39)
--- NOTE | 2019-01-03 19:30 | NUR ---
MANAGER GYN NOTE RECEIVED INTUBATED. OPENS EYE SPONTANEOUSLY. NO SEDATION AT THIS TIME. PARTNER AT BEDSIDE. ON ASPIRATION PRECAUTIONS. ON MECH VENT WITH SETTINGS WELL TOLERATED AND SATURATING WELL. BREATHING UNLABORED. ISOLATION PRECAUTIONS OBSERVED. PICC LINE IN PLACE WITH FLUIDS INFUSING. TELE- ST120'S. GREEN CATHETER IN PLACE AND DRAINING BY GRAVITY. WILL CONTINUE TO MONITOR.
--- NOTE | 2019-01-03 19:32 | NUR ---
SHELL CORE AND MOLDING SUPERVISOR NOTES BEDSIDE REPORT GIVEN TO GAB PATIENT INTUBATED 7. AT THE [facility]. TOLERATING SETTINGS AT THIS TIME.A/O X0 NON RESPONSIVE OPENING EYES SPONTANEOUSLY. UNABLE TO FOLLOW COMMANDS. KEVIN PICC LINE RUNNING LEVO @ 26 MCG L HAND # 20 GAUGE SL AND RIGHT HAND # 20 GAUGE SL/. GREEN CATH WITH MINIMAL OUTPUT NOTED 350 ML MODERATE BM DARK IN COLOR PATIENT POSITIVE FOR OCCULT BLOOD TACHY 120"S ON MONITOR. BILATERAL WEEPING NOTED TO UPPER EXTREMITIES CORE TEMP 97.3 BEAR HUGGER APPLIED MULTIPLE PETECHIAE AND SCABS ON BLE. GT PLACEMENT CONFIRMED AND NPO AT THIS TIME. SAFETY AND ASPIRATION PRECAUTIONS IN PLACE BED IN LOW LOCKED POSITION
[2019-01-03] MEDS: ENOXAPARIN SODIUM 40 MG/0.4 ML DISP.SYRIN SQ SCH (21:08)
[2019-01-03] MEDS: MUPIROCIN OINT 2% 22 GM TUBE SCH (21:34)
[2019-01-04] VITALS (100 sets, daily range): BP systolic 44–170; BP diastolic 24–105
[2019-01-04] MEDS: PROPOFOL 100 ML IV PRN ×2 (00:40→15:59)
[2019-01-04] MEDS: PIPERACILLIN /TAZOBACTAM 4.5 G in IV D5W 50 ML IV SCH ×4 (02:34→20:09)
[2019-01-04] MEDS: VANCOMYCIN 0.75 GM in IV D5W 250 ML IV SCH ×2 (04:08→16:00)
[2019-01-04] MEDS: ALBUTEROL FS 2.5 MG/0.5 ML VIAL.NEB NEB SCH ×6 (04:12→23:23)
[2019-01-04] MEDS: IPRATROPIUM NEB FS 0.5 MG/2.5 ML AMPUL.NEB NEB SCH ×6 (04:12→23:23)
[2019-01-04 04:42] LABS: HEMATOCRIT 30 % (39-51); HEMOGLOBIN 10.8 g/dL (13.5-17.5); LYMPHOCYTES # (AUTO) 0.4 /CMM (0.8-4.8); LYMPHOCYTES % (AUTO) 1.5 % (20.0-44.0); MEAN CORPUSCULAR HGB CONC 36 g/dl (31.0-36.0); MEAN CORPUSCULAR VOLUME 97 fL (80-96); MONOCYTES # (AUTO) 0.5 /CMM (0.1-1.30); MONOCYTES % (AUTO) 1.8 % (2.0-12.0); NEUTROPHILS # (AUTO) 26.1 /CMM (1.8-8.9); NEUTROPHILS % (AUTO) 96.7 % (43.0-81.0); PLATELET COUNT (AUTO) 73 /CMM (150-450); RED BLOOD CELL COUNT(AUTO) 3.08 MIL/uL (4.5-6.0)
[2019-01-04] MEDS: PHENYLEPHRINE 80 MG in IV D5W 250 ML IV PRN ×2 (04:43→13:43)
[2019-01-04 04:52] LABS: ALANINE AMINOTRANSFERASE 436 U/L (12-78); ALKALINE PHOSPHATASE 74 U/L (46-116); ASPARTATE AMINOTRANSFERASE 179 U/L (15-37); BILIRUBIN,TOTAL 0.8 mg/dL (0.2-1.0); CALCIUM, SERUM 7.4 mg/dL (8.5-10.1); CARBON DIOXIDE 26 mmol/L (21-32); CHLORIDE 97 mmol/L (98-107); CREATININE 1.2 mg/dL (0.6-1.3); GLUCOSE 197 mg/dL (74-106); MAGNESIUM 2.2 mg/dL (1.8-2.4); PHOSPHORUS 3.2 mg/dL (2.5-4.9); POTASSIUM 3.1 mmol/L (3.5-5.1); SODIUM SERUM 131 mmol/L (136-145); TOTAL PROTEIN, SERUM 3.5 g/dL (6.4-8.2); UREA NITROGEN, BLOOD 32 mg/dL (7-18)
[2019-01-04 04:56] LABS: CREATINE KINASE, TOTAL 21 U/L (39-308)
[2019-01-04 05:20] LABS: ALBUMIN 1.3 g/dL (3.4-5.0)
[2019-01-04] MEDS: POTASSIUM CHLORIDE 20 MEQ POWDER PACKET NG SCH ×3 (06:30→08:55)
[2019-01-04] MEDS: FLUDROCORTISONE 0.1 MG TABLET JT SCH ×3 (06:30→17:31)
--- NOTE | 2019-01-04 07:35 | NUR ---
HOSPITALITY AMBASSADOR NOTE PT REMAINED STABLE DURING SHIFT. NO ACUTE DISTRESS NOTED. VENT SETTINGS WELL TOLERATED. ISOLATION PRECAUTIONS OBSERVED. ALL NEEDS ATTENDED TO PROMPTLY. SUCTIONED NEEDED. REPOSITIONED Q2H. KEPT CLEAN AND DRY. WILL ENDORSE TO NEXT SHIFT FOR CONTINUITY OF CARE.
--- NOTE | 2019-01-04 07:46 | NUR ---
TURF FARMER NOTES RECEIVED BEDSIDE REPORT. PATIENT INTUBATED 7. AT THE [facility]. TOLERATING SETTINGS AT THIS TIME AC 30 VT 600 O2 80% PEEP 10.SEDATED AT THIS TIME KEVIN PICC RUNNING PROPOFOL @ 10 MCG , [place] @ 100 MCG MAINTAINING GOOD BP SODIUM BICARB @ 125 ML/HR AND RIGHT HAND # 20 GAUGE SL. GREEN CATH DRAINING CLEAR YELLOW URINE SINUS ON MONITOR. BILATERAL WEEPING NOTED TO UPPER EXTREMITIES CORE TEMP 98.4 MULTIPLE PETECHIAE AND SCABS ON BLE. GT PLACEMENT CONFIRMED AND CLAMPED NPO AT THIS TIME.UNABLE TO USE CALL LIGHT HOURLY ROUNDING TO BE DONE. ISOLATION FOR MRSA NARES EDUCATED FAMILY SAFETY AND ASPIRATION PRECAUTIONS IN PLACE BED IN LOW LOCKED POSITION. F/U WITH ALL MDS AND CONT TO MONITOR ACCORDINGLY
[2019-01-04] MEDS: MUPIROCIN OINT 2% 22 GM TUBE SCH ×2 (08:02→20:10)
[2019-01-04] MEDS: HYDROCORTISONE SOD SUCCINATE 100 MG/2 ML VIAL IV SCH ×3 (08:02→17:31)
[2019-01-04] MEDS: Sodium Bicarbonate 150 MEQ in IV D5W 1,000 ML IV PRN (08:31)
[2019-01-04] MEDS ORDERED: IV NS 0.9% 1,000 ML BAG IV PRN (09:00)
[2019-01-04] MEDS: IV NS 0.9% 1,000 ML IV PRN ×2 (09:01→20:55)
[2019-01-04 09:07] LABS: ABG BASE EXCESS -1.8 mmol/L; ABG OXYGEN SATURATION 98.8 % (92.0-98.5); ABG PCO2 29.5 mmHg (35.0-45.0); ABG PH 7.471 (7.350-7.450); ABG PO2 283.1 mmHg (75.0-100.0); AaDO2 256.3 mmHg; COHb 0.3 % (0.5-1.5); MetHb 0.6 % (0.0-1.5); O2Hb 97.9 % (94.0-97.0); SITE, ABG Right Radial; VENT MODE, BG AC 30 600 80% +10
[2019-01-04 09:11] LABS: ABG BASE EXCESS -4.8 mmol/L; ABG OXYGEN SATURATION 69.7 % (92.0-98.5); ABG PCO2 49.7 mmHg (35.0-45.0); ABG PO2 41.5 mmHg (75.0-100.0); AaDO2 621.8 mmHg; COHb 0.8 % (0.5-1.5); O2Hb 68.7 % (94.0-97.0); PEEP,BG 5 cm H2O; SITE, ABG Right Femoral; VENT MODE, BG AC 28 550 100% +5; VT, ABG 550 mL
[2019-01-04] MEDS: POTASSIUM CL. PREMIX PERIPHER. 50 ML IV SCH ×4 (10:07→14:59)
--- NOTE | 2019-01-04 17:46 | NUR ---
RT END OF THE SHIFT REPORT, PT. 78 Y OLD MALE PT. RECEIVED @0700 AM ORALLY INTUBATED ETT # 7.5 @ 21CM LIP LINE ON [facility]. VENT WITH NOTED SETTINGS. VENT CHANGES DONE T/O DAY PER DR. CASSIDY ORDER. PT SUX'D MOD. THICK YELLOW SECRETIONS. B/S COARSE BILATERALLY, EQUAL CHEST RISE NOTED. VENT IS PLUGGED INTO RED OUTLET. ALARMS ARE ON AND FUNCTIONAL. HME CHANGED, SHADE CLOTH FINISHER DONE AMBU BAG AT BEDSIDE. TX'S GIVEN INLINE Q4, AND NO ADVERSE REACTION NOTED. FAMILY MEMBERS AT THE BEDSIDE. WILL CONTINUE TO MONITOR. REPORT WILL PASS TO PM SHIFT. Addendum: 01/04/19 at 1750 by MILES STORY RT Amended: Links added.
--- NOTE | 2019-01-04 19:19 | NUR ---
ACCOUNTS PAYABLE CLERK NOTES BEDSIDE REPORT GIVEN TO GAB PATIENT INTUBATED 7. AT THE [facility]. TOLERATING SETTINGS AT THIS TIME.A/O X0 NON RESPONSIVE OPENING EYES SPONTANEOUSLY. UNABLE TO FOLLOW COMMANDS. KEVIN PICC LINE RUNNING [place] @ 30 AND PROPOFOL @ 5 MCG HAND # AND RIGHT HAND #18 GAUGE SL/. GREEN CATH WITH MINIMAL OUTPUT NOTED 350 ML MODERATE BM DARK IN COLOR PATIENT POSITIVE FOR OCCULT BLOOD SINUS ON MONITOR. BILATERAL WEEPING NOTED TO UPPER EXTREMITIES CORE TEMP 98.4 BEAR MULTIPLE PETECHIAE AND SCABS ON BLE. GT PLACEMENT CONFIRMED AND NPO AT THIS TIME. SAFETY AND ASPIRATION PRECAUTIONS IN PLACE BED IN LOW LOCKED POSITION
--- NOTE | 2019-01-04 19:35 | NUR ---
RN NOTES RECEIVED PT ON ISOLATION DUE TO MRSA NARES. ORALLY INTUBATED WITH ETT 7.5 AND 21 CM AT LIP CONNECTED TO VENT SETTING AC 22 TV 500 FIO2 40% AND PEEP 5. PATIENT IS SEDATED WITH PROPOFOL BUT OPENS EYES WHEN CALLING HIS NAME. SR WITH FIRST DEGREE AVB ON TELE MONITOR . BOTH UPPER EXT. WEEPING WITH MULTIPLE DISCOLORATION. GT INTACT AND PATENT CLAMPED AT THIS TIME. IV SITE ON KEVIN PICC LINE WITH NS @ 125 ML/HR [place] @ 30 MCG/MIN AND PROPOFOL MCG/KG/MIN. AND RIGHT HAND G 18 INTACT AND PATENT AND TOLERATED WELL WITH GOOD BLOOD RETURN. GREEN CATH DRAINED W/ YELLOW CLEAR COLOR URINE. KEPT PT CLEAN AND DRY. WILL CLOSELY MONITOR.
[2019-01-04] MEDS ORDERED: MUPIROCIN OINT 2% 22 GM TUBE SCH (21:00)
[2019-01-05] VITALS (62 sets, daily range): BP systolic 87–126; BP diastolic 38–68
[2019-01-05] MEDS: FLUDROCORTISONE 0.1 MG TABLET JT SCH ×2 (00:15→05:42)
[2019-01-05] MEDS: PIPERACILLIN /TAZOBACTAM 4.5 G in IV D5W 50 ML IV SCH ×3 (02:44→15:25)
[2019-01-05] MEDS: VANCOMYCIN 0.75 GM in IV D5W 250 ML IV SCH ×2 (03:46→16:18)
--- NOTE | 2019-01-05 04:15 | NUR ---
RN NOTE HOLD [place] AT THIS TIME BP 121/63 WILL CONTINUE TO MONITOR
[2019-01-05] MEDS: ALBUTEROL FS 2.5 MG/0.5 ML VIAL.NEB NEB SCH ×6 (04:27→23:18)
[2019-01-05] MEDS: IPRATROPIUM NEB FS 0.5 MG/2.5 ML AMPUL.NEB NEB SCH ×6 (04:27→23:18)
[2019-01-05 04:51] LABS: HEMATOCRIT 24 % (39-51); HEMOGLOBIN 8.4 g/dL (13.5-17.5); LYMPHOCYTES # (AUTO) 0.3 /CMM (0.8-4.8); LYMPHOCYTES % (AUTO) 1.5 % (20.0-44.0); MEAN CORPUSCULAR HGB CONC 35 g/dl (31.0-36.0); MEAN CORPUSCULAR VOLUME 97 fL (80-96); MONOCYTES # (AUTO) 0.4 /CMM (0.1-1.30); MONOCYTES % (AUTO) 2.2 % (2.0-12.0); NEUTROPHILS # (AUTO) 18.2 /CMM (1.8-8.9); NEUTROPHILS % (AUTO) 96.3 % (43.0-81.0); RED BLOOD CELL COUNT(AUTO) 2.45 MIL/uL (4.5-6.0); WHITE BLOOD COUNT (AUTO) 18.9 K/uL (4.3-11.0)
[2019-01-05 05:08] LABS: PLATELET COUNT (AUTO) 47 /CMM (150-450)
[2019-01-05 05:18] LABS: ALANINE AMINOTRANSFERASE 300 U/L (12-78); ALKALINE PHOSPHATASE 74 U/L (46-116); ASPARTATE AMINOTRANSFERASE 74 U/L (15-37); BILIRUBIN,TOTAL 0.8 mg/dL (0.2-1.0); CALCIUM, SERUM 7.6 mg/dL (8.5-10.1); CARBON DIOXIDE 25 mmol/L (21-32); CHLORIDE 105 mmol/L (98-107); CREATININE 0.9 mg/dL (0.6-1.3); GLUCOSE 82 mg/dL (74-106); MAGNESIUM 2.2 mg/dL (1.8-2.4); PHOSPHORUS 2.6 mg/dL (2.5-4.9); POTASSIUM 3.8 mmol/L (3.5-5.1); SODIUM SERUM 137 mmol/L (136-145); TOTAL PROTEIN, SERUM 3.3 g/dL (6.4-8.2); UREA NITROGEN, BLOOD 24 mg/dL (7-18)
[2019-01-05 05:31] LABS: ALBUMIN 1.1 g/dL (3.4-5.0)
[2019-01-05] MEDS: IV NS 0.9% 1,000 ML IV PRN ×3 (05:39→22:20)
[2019-01-05 05:49] LABS: LYMPHOCYTES % (MANUAL) 2 % (16-48); MONOCYTES % (MANUAL) 2 % (0-11.0); NEUTROPHILS % (MANUAL) 96 (42-76)
--- NOTE | 2019-01-05 07:00 | NUR ---
RN NOTES PATIENT REMAINED STABLE MORE AWAKE THIS MORNING, ABLE TO OPENS EYES AND NODS FOR YES OR NO. TOELRATED ETT AND VENT SETTIGN ORDERED. REAMINED CALM AND COOPERATIVE ON PROPOFOL 5 MCG/KG.MIN TO KEEP PATIENT CALM. CRITICAL VALUES OF PLATELET 47 AND ALBUMIN ENDORSED TO AM SHIFT. PATIENT STILL WITH BLACK STOOL X1 TODAY. NO SIGNIFICANT CHANGE OF CONDITION NOTED. KEPT PT CLEAN AND DRY. ENDORSED CONTINUITY OF CARE TO AM NURSE.
--- NOTE | 2019-01-05 08:03 | NUR ---
REMOTE OPERATIONS PRODUCER NOTES RECEIVED BEDSIDE REPORT. PATIENT INTUBATED 7. AT THE [facility]. TOLERATING SETTINGS AT THIS TIME AC 22 VT 500 FIO2 40% PEEP 5 MILDLY SEDATED AT THIS TIME KEVIN PICC RUNNING PROPOFOL @ 5 MCG NS @ 125 ML/HR AND RIGHT HAND # 18 GAUGE SL. GREEN CATH DRAINING CLEAR YELLOW URINE SINUS ON MONITOR. BILATERAL WEEPING NOTED TO UPPER EXTREMITIES CORE TEMP 97.4 MULTIPLE PETECHIAE AND SCABS ON BLE. GT PLACEMENT CONFIRMED AND CLAMPED NPO AT THIS TIME.UNABLE TO USE CALL LIGHT HOURLY ROUNDING TO BE DONE. ISOLATION FOR MRSA NARES EDUCATED FAMILY SAFETY AND ASPIRATION PRECAUTIONS IN PLACE BED IN LOW LOCKED POSITION. F/U WITH ALL MDS AND CONT TO MONITOR ACCORDINGLY
--- NOTE | 2019-01-05 08:08 | NUR ---
BERNAL AT BEDSIDE MADE AWARE OF ALBUMIN 1.1 RECOMENDED TO MONITOR MAY PT HAS HISTORY AND CAUSE POSSIBLE VANCOMYCIN. POSSIBLE PATIENT TO BE EXTUBATED TODAY
[2019-01-05] MEDS: MUPIROCIN OINT 2% 22 GM TUBE SCH ×2 (08:13→21:12)
[2019-01-05] MEDS: PROPOFOL 100 ML IV PRN (17:07)
--- NOTE | 2019-01-05 19:26 | NUR ---
411 DIRECTORY ASSISTANCE OPERATOR NOTES BEDSIDE REPORT GIVEN TO GAB PATIENT INTUBATED 7. AT THE [facility]. TOLERATING SETTINGS AT THIS TIME.A/O X0 NON RESPONSIVE OPENING EYES SPONTANEOUSLY. UNABLE TO FOLLOW COMMANDS. KEVIN PICC PROPOFOL @ 5 MCG AND RIGHT HAND #18 GAUGE SL/. GREEN CATH WITH MODERATE OUTPUT NOTED SMALL BM DARK IN COLOR PATIENT POSITIVE FOR OCCULT BLOOD SINUS ON MONITOR. BILATERAL WEEPING NOTED TO UPPER EXTREMITIES CORE TEMP 98.4 MULTIPLE PETECHIAE AND SCABS ON BLE. GT PLACEMENT CONFIRMED AND NPO AT THIS TIME. SAFETY AND ASPIRATION PRECAUTIONS IN PLACE BED IN LOW LOCKED POSITION
--- NOTE | 2019-01-05 19:30 | NUR ---
ICU/MUSEUM DOCENT PT HAS NO PRESSORS ON BOARD, HOWEVER PT STILL HAS CVP. WILL ADDRESS THIS IN MORNING WITH DR NEWBERRY TO DISCONTINUE THIS.
--- NOTE | 2019-01-05 19:45 | NUR ---
ICU/RADIO INTERFERENCE EXPERT RECEIVED REPORT FROM DAY SHIFT NURSE. SEE FLOWSHEET FOR ASSESSMENT , WELL SKIN ISSUES WHICH ARE ADDRESSED ALONG WITH INTERVENTIONS TO EACH. PT IS ORALLY INTUBATED ON SEDATION. PT IS NOT CURRENTLY ON ANY PRESSORS, HAVE BEEN OFF SINCE DAY SHIFT. PT HAS IV'S WHICH ARE ADDRESSED ON FLOW SHEET. PT WAS TURNED AND REPOSITIONED FOR COMFORT AND CARE, WILL CONTINUE TO MONITOR THIS PT. NO ACUTE DISTRESS SEEN AT THIS TIME.
[2019-01-05] MEDS: MEROPENEM 1 G in IV NS 0.9% 100 ML IV SCH (21:00)
--- NOTE | 2019-01-05 22:20 | NUR ---
ICU/ACCOUNTS ADMINISTRATOR PT IS GIVEN ORAL CARE, ALONG WITH PM CARE. PT TOLERATED BOTH OF THESE WELL.PT REMAINS ON CURRENT VENT SETTINGS,WITH SATURATION AT 100%. PT WAS TURNED AND REPOSITIONED FOR COMFORT AND CARE. NO ACUTE DISTRESS SEEN AT THIS TIME. WILL CONTINUE TO MONITOR THIS PT.
[2019-01-06] VITALS (65 sets, daily range): BP systolic 84–139; BP diastolic 47–83
--- NOTE | 2019-01-06 00:05 | NUR ---
ICU/NUB CARD TENDER NO ACUTE DISTRESS SEEN, PT REMAINS WITH CURRENT VENT SETTINGS WITH NO ACUTE DISTRESS SEEN AT THIS TIME. PT IS CURRENTLY ON SEDATION AT 5MCG. CVP LINE MONITORING IS DOCUMENTED ON HEMODYNAMIC FLOWSHEET.
--- NOTE | 2019-01-06 02:10 | NUR ---
ICU/STERILE PROCESSING TECHNICIAN PT GIVEN AM CARE ALONG WITH ORAL CARE. PT TOLERATED BOTH OF THESE WELL.PT REMAINS ON CURRENT VENT SETTINGS,WITH SATURATION AT 100%. PT WAS TURNED AND REPOSITIONED FOR COMFORT AND CARE. NO ACUTE DISTRESS SEEN AT THIS TIME. WILL CONTINUE TO MONITOR THIS PT.
[2019-01-06] MEDS: IPRATROPIUM NEB FS 0.5 MG/2.5 ML AMPUL.NEB NEB SCH ×6 (03:12→23:02)
[2019-01-06] MEDS: ALBUTEROL FS 2.5 MG/0.5 ML VIAL.NEB NEB SCH ×6 (03:12→23:02)
[2019-01-06] MEDS: VANCOMYCIN 0.75 GM in IV D5W 250 ML IV SCH ×2 (04:21→16:32)
[2019-01-06] MEDS: PROPOFOL 100 ML IV PRN (04:22)
--- NOTE | 2019-01-06 04:30 | NUR ---
ICU/[place]Y [place] CLERK AM LABS WERE DRAWN, AWAIT FOR ANY ABNORMAL RESULTS.
[2019-01-06 05:04] LABS: CALCIUM, SERUM 7.5 mg/dL (8.5-10.1); CARBON DIOXIDE 27 mmol/L (21-32); CHLORIDE 107 mmol/L (98-107); CREATININE 0.7 mg/dL (0.6-1.3); GLUCOSE 60 mg/dL (74-106); POTASSIUM 3.2 mmol/L (3.5-5.1); SODIUM SERUM 138 mmol/L (136-145); UREA NITROGEN, BLOOD 23 mg/dL (7-18)
[2019-01-06] MEDS: IV NS 0.9% 1,000 ML IV PRN ×2 (05:04→14:20)
--- NOTE | 2019-01-06 07:15 | NUR ---
CONDOMINIUM MANAGER INITIAL NOTES: Rec'd pt on bed, not in any distress, sedated on Propofol x 5 mcg. On MV via ETT, sating at 100%. SR on telemonitor. IV line access patent & intact w/ no s/sx of infection/infiltration noted. KEVIN PICC line w/ NS 125 cc/hr & Propofol x 5 mcg, RH G18 SL. Has FC draining to BSB. Has GT clamped at this time. Safety precaution in place w/ bed in lowest & locked pos. Call light placed w/in reach. Will cont to monitor & attend pt needs.
[2019-01-06] MEDS ORDERED: POTASSIUM CHLORIDE 20 MEQ POWDER PACKET NG SCH (07:30)
[2019-01-06] MEDS ORDERED: DEXTROSE 50%-WATER 50 ML DISP.SYRIN IV PRN (08:30)
[2019-01-06] MEDS ORDERED: POTASSIUM CHLORIDE 20 MEQ TAB.PRT.SR PO ONE (08:30)
--- NOTE | 2019-01-06 08:30 | NUR ---
Pt seen & examined by Dr. Cummins, updated about pt status. Made him aware re: low BS if pt can be started on GTF. Per , okay to start GTF per RD recommendation & may order sliding scale q6h TF. Dr. Cummins ordered K replacement, made him aware that K already replaced by Dr. Dinh. Per , may DC his K rep order.
[2019-01-06 08:40] LABS: EOSINOPHILS % (AUTO) 0.1 % (0.0-6.0); HEMATOCRIT 22 % (39-51); HEMOGLOBIN 7.8 g/dL (13.5-17.5); LYMPHOCYTES # (AUTO) 0.5 /CMM (0.8-4.8); LYMPHOCYTES % (AUTO) 5.7 % (20.0-44.0); MEAN CORPUSCULAR HGB CONC 36 g/dl (31.0-36.0); MEAN CORPUSCULAR VOLUME 98 fL (80-96); MONOCYTES # (AUTO) 0.3 /CMM (0.1-1.30); MONOCYTES % (AUTO) 2.9 % (2.0-12.0); NEUTROPHILS # (AUTO) 7.8 /CMM (1.8-8.9); NEUTROPHILS % (AUTO) 91.3 % (43.0-81.0); RED BLOOD CELL COUNT(AUTO) 2.25 MIL/uL (4.5-6.0); WHITE BLOOD COUNT (AUTO) 8.6 K/uL (4.3-11.0)
[2019-01-06 08:45] LABS: PLATELET COUNT (AUTO) 32 /CMM (150-450)
[2019-01-06] MEDS: MUPIROCIN OINT 2% 22 GM TUBE SCH ×2 (08:50→20:40)
[2019-01-06] MEDS: MEROPENEM 1 G in IV NS 0.9% 100 ML IV SCH ×2 (08:50→21:12)
[2019-01-06] MEDS: Z GUARD REMEDY 2 OZ OINT TP PRN (08:50)
[2019-01-06 09:03] LABS: CALCIUM, SERUM 6.7 mg/dL (8.5-10.1); CARBON DIOXIDE 22 mmol/L (21-32); CHLORIDE 108 mmol/L (98-107); CREATININE 0.6 mg/dL (0.6-1.3); GLUCOSE 57 mg/dL (74-106); SODIUM SERUM 139 mmol/L (136-145); UREA NITROGEN, BLOOD 21 mg/dL (7-18)
[2019-01-06 09:11] LABS: POTASSIUM 2.8 mmol/L (3.5-5.1)
[2019-01-06 09:23] LABS: LYMPHOCYTES % (MANUAL) 3 % (16-48); MONOCYTES % (MANUAL) 4 % (0-11.0); NEUTROPHILS % (MANUAL) 93 (42-76)
--- NOTE | 2019-01-06 11:00 | NUR ---
Dr. Cummins made aware of critical levels plt 32 & K 2.8 w/ NNO.
[2019-01-06] MEDS: TWOCAL HN 1,000 ML LIQUID GT PRN ×2 (11:05→18:10)
--- NOTE | 2019-01-06 11:17 | NUR ---
Pt seen & examined by Dr. Casas, updated about pt status.
--- NOTE | 2019-01-06 11:22 | NUR ---
VENT CHANGES BELOW PER DR. CASSIDY: SIMV 10 VT 500 FIO2 40% PEEP +5 PS 10 PT. IS AWAKE AND FOLLOW COMMANDS SPO2 100%, HR 71bpm, RR 20 BPM RELATIVE @ BEDSIDE. Addendum: 01/06/19 at 1125 by THEODORE LAROSE RT Amended: Links added.
[2019-01-06] MEDS: BLOOD SUGAR DIAGNOSTIC 1 EACH STRIP IN SCH ×2 (12:14→18:13)
[2019-01-06] MEDS: INSULIN REGULAR, HUMAN 100 UNIT/ML 3 ML VIAL SQ PRN ×2 (12:14→18:13)
--- NOTE | 2019-01-06 14:30 | NUR ---
VENT CHANGES BELOW PER DR. CASSIDY. CPAP 5 PS 10 FIO2 40% Addendum: 01/06/19 at 1431 by THEODORE LAROSE RT Amended: Links added.
[2019-01-06 16:25] LABS: ABG BASE EXCESS -1.7 mmol/L; ABG OXYGEN SATURATION 95.5 % (92.0-98.5); ABG PCO2 30.6 mmHg (35.0-45.0); ABG PH 7.463 (7.350-7.450); ABG PO2 85.9 mmHg (75.0-100.0); AaDO2 164.1 mmHg; COHb 0.3 % (0.5-1.5); MetHb 0.7 % (0.0-1.5); O2Hb 94.5 % (94.0-97.0); SITE, ABG Right Femoral; VENT MODE, BG CPAP 5 / PS 10
--- NOTE | 2019-01-06 16:36 | NUR ---
ABG done & relayed to Dr. Casas w/ orders to place pt back to AC mode then do CPAP 5, PS 10, 40% miles 8AM. RT aware.
--- NOTE | 2019-01-06 16:51 | NUR ---
PLACED BACK ON AC 22, VT 500, FIO2 40%, PEEP +[address] CASSIDY. RJ AWARE ON CHANGES. Addendum: 01/06/19 at 1657 by THEODORE LAROSE RT Amended: Links added.
--- NOTE | 2019-01-06 18:36 | NUR ---
DOUGHNUT MACHINE OPERATOR CLOSING NOTES: Pt resting on bed, not in any distress. Back on AC mode via ETT after ABG relayed to Dr. Casas, sating at 100%. Remains SR on telemonitor. IV line access kept patent & intact w/ no s/sx of infection/infiltration noted. KEVIN PICC line w/ NS 125 cc/hr. FC kept draining to BSB. GT patent & intact, started on GTF at 10 cc/hr. Safety precaution kept in place w/ bed in lowest & locked pos. Call light placed w/in reach. Will endorse to PM RN for CHOCO.
--- NOTE | 2019-01-06 19:45 | NUR ---
ICU/RETAIL AND PROMOTIONS COORDINATOR RECEIVED REPORT FROM DAY SHIFT NURSE. SEE FLOWSHEET FOR ASSESSMENT , WELL SKIN ISSUES WHICH ARE ADDRESSED ALONG WITH INTERVENTIONS TO EACH. PT IS ORALLY INTUBATED NOT ON ANY SEDATION. PT IS NO LONGER ON ANY PRESSORS, HAVE BEEN OFF SINCE 48 HOURS. PT HAS IV'S WHICH ARE ADDRESSED ON FLOW SHEET. PT WAS TURNED AND REPOSITIONED FOR COMFORT AND CARE, WILL CONTINUE TO MONITOR THIS PT. NO ACUTE DISTRESS SEEN AT THIS TIME.
--- NOTE | 2019-01-06 19:52 | NUR ---
PT RCVD ORALLY INTUBATED WITH ETT 7.5 @ 21 CM LIPLINE ON VENT WITH THE SETTINGS OF AC 22,500.40%, PEEP 5. BREATHING TX GIVEN , NO ADVERSE REACTION NOTED. SX DONE PRN. VENT PLUGGED INTO RED OUTLET, ALARMS SET AND AUDIBLE. X RAY EXAMINER OF AIRCRAFT DONE, EQUAL BILATERAL B.S NOTED. AMBU BAG AT BEDSIDE. WILL CONTINUE TO MONITOR THE PT.
[2019-01-06] MEDS: DOXYCYCLINE HYCLATE (100 MG) 100 MG TABLET PO SCH (20:40)
--- NOTE | 2019-01-06 22:20 | NUR ---
ICU/CLOTH CALENDER PT IS GIVEN ORAL CARE, ALONG WITH PM CARE. PT TOLERATED BOTH OF THESE WELL. PT REMAINS ON CURRENT VENT SETTINGS,WITH SATURATION AT 100%. PT WAS TURNED AND REPOSITIONED FOR COMFORT AND CARE. NO ACUTE DISTRESS SEEN AT THIS TIME. WILL CONTINUE TO MONITOR THIS PT.
[2019-01-07] VITALS (25 sets, daily range): BP systolic 102–142; BP diastolic 58–82
--- NOTE | 2019-01-07 00:10 | NUR ---
ICU/TECHNICAL SUPPORT TECHNICIAN REPORT GIVEN TO RADIATION ENGINEER ELAINA FOR CONTINUATIVE CARE.
--- NOTE | 2019-01-07 00:20 | NUR ---
ICU/REVENUE ACCOUNTANT REPORT GIVEN TO SERVER SERVICE ASSISTANT ELAINA FOR CONTINUATIVE CARE.
[2019-01-07] MEDS: BLOOD SUGAR DIAGNOSTIC 1 EACH STRIP IN SCH ×4 (00:38→18:05)
[2019-01-07] MEDS: ALBUTEROL FS 2.5 MG/0.5 ML VIAL.NEB NEB SCH ×6 (03:30→23:36)
[2019-01-07] MEDS: IPRATROPIUM NEB FS 0.5 MG/2.5 ML AMPUL.NEB NEB SCH ×6 (03:30→23:36)
[2019-01-07 06:10] LABS: CALCIUM, SERUM 7.7 mg/dL (8.5-10.1); CARBON DIOXIDE 25 mmol/L (21-32); CHLORIDE 109 mmol/L (98-107); CREATININE 0.6 mg/dL (0.6-1.3); GLUCOSE 73 mg/dL (74-106); POTASSIUM 3.6 mmol/L (3.5-5.1); SODIUM SERUM 135 mmol/L (136-145); UREA NITROGEN, BLOOD 19 mg/dL (7-18)
--- NOTE | 2019-01-07 06:28 | NUR ---
ALL MEDICATION GIVEN DURING DOWNTIME DOCUMENTED ON PAPER MAR IN PATIENT CHART.
[2019-01-07] MEDS ORDERED: DC PROPOFOL WHEN EXTUBATED XX PRN (07:00)
--- NOTE | 2019-01-07 07:10 | NUR ---
DIVISION MERCHANDISE MANAGER INITIAL NOTES PT RECEIVED ON MECHANICAL VENT AND TOLERATING SETTINGS WELL. NO SOB OR ACUTE SIGNS OF DISTRESS NOTED. BREATHING IS EVEN AND UNLABORED. PT ABLE TO FOLLOW SIMPLE COMMANDS WHEN PROMPTED. HE IS NOTED TO BE SR ON THE MONITOR. F/C NOTED TO BE C/D/I AND DRAINING TO GRAVITY. LEFT UPPER ARM PICC LINE NOTED TO BE PATENT AND INTACT. PT TOLERATING NS INFUSION AT ORDERED RATE WELL. NO REDNESS OR SIGNS OF INFILTRATION NOTED. GTUBE NOTED TO BE PATENT. PLACEMENT VERIFIED VIA AUSCULTATION. PT TOLERATING GTUBE FEEDINGS WELL. NO RESIDUALS ASPIRATED AT THIS TIME. BED IN LOW LOCKED POSITION, SIDE RAILS UP X2, ISOLATION PRECAUTIONS OBSERVED. WILL CONTINUE TO MONITOR
[2019-01-07] MEDS: MEROPENEM 1 G in IV NS 0.9% 100 ML IV SCH ×2 (08:12→21:28)
[2019-01-07] MEDS: MUPIROCIN OINT 2% 22 GM TUBE SCH ×2 (08:33→21:29)
[2019-01-07 09:57] LABS: ABG BASE EXCESS -1.6 mmol/L; ABG PCO2 29.9 mmHg (35.0-45.0); ABG PH 7.471 (7.350-7.450); ABG PO2 57.2 mmHg (75.0-100.0); AaDO2 193.6 mmHg; COHb 0.3 % (0.5-1.5); MetHb 0.6 % (0.0-1.5); O2Hb 89.2 % (94.0-97.0); SITE, ABG Right Radial
[2019-01-07] MEDS: IV NS 0.9% 1,000 ML IV PRN ×2 (10:00)
--- NOTE | 2019-01-07 10:16 | NUR ---
RT PER DR CASSIDY PATIENT WAS EXTUBATED AND PLACED ON SUPPLEMENTAL O2 TRE WELL AT THIS TIME. WILL CONT TO MONITOR CLOSELY
--- NOTE | 2019-01-07 10:21 | NUR ---
MULE OPERATOR NOTES: EXTUBATION RESULTS OF ABGs RELAYED TO DR. CASSIDY BY RT. RT PROCEEDED WITH EXTUBATION AT 1005 PER MD ORDER. PT TOLERATED EXTUBATION WELL. VSS. NO SOB OR SIGNS OF DISTRESS NOTED. BREATHING IS EVEN AND UNLABORED. VERBAL ORDER RECEIVED FOR CXR TOMORROW. WILL CONTINUE TO MONITOR
[2019-01-07 15:19] LABS: ABG BASE EXCESS -2.1 mmol/L; ABG OXYGEN SATURATION 74.8 % (92.0-98.5); ABG PH 7.452 (7.350-7.450); ABG PO2 38.7 mmHg (75.0-100.0); AaDO2 643.3 mmHg; COHb 0.3 % (0.5-1.5); MetHb 0.6 % (0.0-1.5); O2Hb 74.1 % (94.0-97.0); SITE, ABG Right Radial; VENT MODE, BG NRB MASK 100%
--- NOTE | 2019-01-07 15:30 | NUR ---
LAB ANIMAL TECHNOLOGIST NOTES: FEEDING CESSATION 1400 PT NOTED TO HAVE INCREASED RESIDUALS. GTUBE FEEDING HELD. 1500 RESIDUALS RECHECKED. PT NOTED WITH COFFEE GROUND CONTENTS WHICH WERE NOT NOTED PRIOR. DR MONTGOMERY MADE AWARE. ORDERS NOTED FOR STAT CBC AND TO CONNECT GTUBE TO LIS. ALSO MADE AWARE THAT NO GI IS ON CASE
--- NOTE | 2019-01-07 15:42 | NUR ---
RT PATIENT UNABLE TO MAINTAIN PATENT AIRWAY AND UNABLE TO COUGH. LARGE AMOUNT OF SECRETIONS. PATIENT WAS RE INTUBATED BY MALCOLM SWENSON WITH A 7.5 ETT SECURED AT 23CM MID LIP. POSITIVE CO2 DETECTOR COLOR CHANGE AND GOOD BILAT BREATH SOUNDS HEARD. GOOD POSITION NOTED ON CHEST XRAY. ATIENT PLACED ON PREVIOUS VENT SETTINGS. AMBU BAG AT HOB. Addendum: 01/07/19 at 1544 by VALERIY PAIGE RT Amended: Links added.
[2019-01-07 15:46] LABS: BASOPHILS % (AUTO) 0.2 % (0.0-2.0); EOSINOPHILS % (AUTO) 2.4 % (0.0-6.0); HEMATOCRIT 28 % (39-51); HEMOGLOBIN 9.8 g/dL (13.5-17.5); LYMPHOCYTES # (AUTO) 0.3 /CMM (0.8-4.8); LYMPHOCYTES % (AUTO) 3.5 % (20.0-44.0); MEAN CORPUSCULAR HGB CONC 35 g/dl (31.0-36.0); MEAN CORPUSCULAR VOLUME 98 fL (80-96); MONOCYTES # (AUTO) 0.3 /CMM (0.1-1.30); MONOCYTES % (AUTO) 3.1 % (2.0-12.0); NEUTROPHILS % (AUTO) 90.8 % (43.0-81.0); RED BLOOD CELL COUNT(AUTO) 2.81 MIL/uL (4.5-6.0); WHITE BLOOD COUNT (AUTO) 8.8 K/uL (4.3-11.0)
--- NOTE | 2019-01-07 15:47 | NUR ---
SHELLS INSPECTOR NOTES: REINTUBATION PT NOTED TO DESATURATE IN THE HIGH TO LOW 60S. STST ABG COMPLETED BY RT. PT NOTED WITH A PO2 OF 38. RESULTS RELAYED TO DR. CASSIDY. TELEPHONE ORDER OBTAINED TO REINTUBATE WHICH WAS COMPLETED BY DR SWENSON AT 1537. PT HAS A 7.5 ETT, 23 AT THE LIP, RATE 22, TV 500, FIO2 100%, PEEP 5. PT TOLERATING SETTING WELL.
[2019-01-07 16:28] LABS: PLATELET COUNT (AUTO) 49 /CMM (150-450)
[2019-01-07 17:23] LABS: LYMPHOCYTES % (MANUAL) 2 % (16-48); MONOCYTES % (MANUAL) 2 % (0-11.0); NEUTROPHILS % (MANUAL) 96 (42-76)
--- NOTE | 2019-01-07 17:55 | NUR ---
DOMESTIC TRAVEL CONSULTANT NOTES: BS MANAGEMENT PT HAS A CURRENT BS OF 70. MD NOTIFIED PT'S FEEDING ARE CURRENTLY HELD AND BS WILL CONTINUE TO LOWER TELEPHONE ORDER OBTAINED TO D/C NS AND BEGIN D5 1/2 NS AT 75
[2019-01-07] MEDS ORDERED: IV D5/0.45 NACL 1,000 ML IV PRN (18:00)
[2019-01-07] MEDS ORDERED: SUCCINYLCHOLINE CHLORIDE 20 MG/ML VIAL IV ONE (18:40)
[2019-01-07] MEDS ORDERED: ETOMIDATE 2 MG/ML VIAL IV ONE (18:40)
--- NOTE | 2019-01-07 18:50 | NUR ---
FLAVOR EXTRACTOR CLOSING NOTES PT REMAINS IN FAIR CONDITION S/P REINTUBATION. ALL NEEDS ANTICIPATED FOR AND MET DURING SHIFT AND ORDERS CARRIED OUT ACCORDINGLY. ALL DUE MEDS GIVEN PT'S CONDITION WILL PERMIT. LEFT UPPER ARM PICC REMAINS PATENT AND INTACT. D5 1/2NS INITIATED ORDERED. PT TOLERATING WELL. GTUBE REMAINS ATTACHED TO LIS AND CONTINUES TO HAVE COFFEE GROUND CONTENTS. PRN AND WOUND CARE RENDERED. SAFETY AND ISOLATION PRECAUTIONS REMAIN INTACT. WILL ENDORSE TO NIGHTSHIFT RN FOR CHOCO
--- NOTE | 2019-01-07 19:00 | NUR ---
RECEIVED PATIENT IN NO ACUTE DISTRESS IN BED. PATIENT OPENS EYES, BUT DOES NOT TRACK. PATIENT IS ON MECHANICAL VENT VIA ENDOTRACHEAL TUBE 7.10/01 AT THE LIP. PATIENT IS TOLERATING VENT SETTING AT AC 22, TV 500, FIO2 100%, PEEP 5. PATIENT IS ON TELEMETRY WITH SR WITH 1ST DEGREE AV BLOCK. PATIENT HAS GTUBE THAT IS CLEAN DRY INTACT AND PATENT WITH LOW INTERMITTENT SUCTIONING. PATIENT HAS F/C THAT IS CLEAN DRY INTACT AND PATENT WITH YELLOW URINE DRAINING. PATIENT HAS LEFT UPPER ARM TRIPLE LUMEN CATHETER PICC LINE THAT IS CLEAN DRY INTACT AND PATENT WITH D51/2 NS AT 75ML/HR. PATIENT HAS RIGHT HAND 18G THAT IS CLEAN DRY INTACT AND PATENT WITH SALINE LOCK. BED IN LOW LOCK POSITION WITH RAILS UP X 2. CALL LIGHT WITHIN REACH AND ALL SAFETY MEASURES ENSURED AND CARRIED OUT. WILL CONTINUE TO MONITOR PATIENT.
--- NOTE | 2019-01-07 19:23 | NUR ---
PT RCVD ORALLY INTUBATED WITH ETT 7.5 @ 23 CM LIPLINE ON VENT WITH THE SETTINGS OF AC 22,500. 100%, PEEP 5. BREATHING TX GIVEN , NO ADVERSE REACTION NOTED. SX DONE PRN. VENT PLUGGED INTO RED OUTLET, ALARMS SET AND AUDIBLE. MINK SLICER DONE, EQUAL BILATERAL B.S NOTED. AMBU BAG AT BEDSIDE. WILL CONTINUE TO MONITOR THE PT.
[2019-01-07] MEDS: DOXYCYCLINE HYCLATE (100 MG) 100 MG TABLET PO SCH (20:00)
--- NOTE | 2019-01-07 20:00 | NUR ---
UNABLE TO GIVE PO MEDICATION BECAUSE PATIENT IS ON LOW INTERMITTENT SUCTIONING WITH COFFEE GROUND GASTRIC CONTENT DRAINING INTO COLLECTION CHAMBER.
[2019-01-08] VITALS (36 sets, daily range): BP systolic 100–138; BP diastolic 56–84
[2019-01-08] MEDS: BLOOD SUGAR DIAGNOSTIC 1 EACH STRIP IN SCH ×4 (00:26→17:23)
[2019-01-08] MEDS: ALBUTEROL FS 2.5 MG/0.5 ML VIAL.NEB NEB SCH ×5 (03:11→19:53)
[2019-01-08] MEDS: IPRATROPIUM NEB FS 0.5 MG/2.5 ML AMPUL.NEB NEB SCH ×5 (03:11→19:53)
[2019-01-08 04:24] LABS: CALCIUM, SERUM 7.4 mg/dL (8.5-10.1); CREATININE 0.6 mg/dL (0.6-1.3); POTASSIUM 3.2 mmol/L (3.5-5.1)
--- NOTE | 2019-01-08 06:35 | NUR ---
PATIENT REMAINS IN NO ACUTE DISTRESS IN BED. PATIENT DID NOT HAVE ANY SIGNIFICANT CHANGE IN CONDITION DURING SHIFT. PATIENT TOLERATED VENT SETTING WELL. ALL NEEDS MET, ALL ORDERS CARRIED OUT. WILL ENDORSE CARE TO AM RN FOR CONTINUITY OF CARE
[2019-01-08 07:24] LABS: BASOPHILS % (AUTO) 0.1 % (0.0-2.0); EOSINOPHILS % (AUTO) 0.1 % (0.0-6.0); HEMATOCRIT 24 % (39-51); HEMOGLOBIN 8.3 g/dL (13.5-17.5); LYMPHOCYTES # (AUTO) 0.4 /CMM (0.8-4.8); LYMPHOCYTES % (AUTO) 5.5 % (20.0-44.0); MEAN CORPUSCULAR HGB CONC 35 g/dl (31.0-36.0); MEAN CORPUSCULAR VOLUME 99 fL (80-96); MONOCYTES # (AUTO) 0.2 /CMM (0.1-1.30); MONOCYTES % (AUTO) 2.5 % (2.0-12.0); NEUTROPHILS % (AUTO) 91.8 % (43.0-81.0); RED BLOOD CELL COUNT(AUTO) 2.37 MIL/uL (4.5-6.0); WHITE BLOOD COUNT (AUTO) 6.6 K/uL (4.3-11.0)
--- NOTE | 2019-01-08 07:30 | NUR ---
ICU/RN: Pt received in bed, awake, alert, follows simple commands. Tolerating vent on AC mode on current settings. Dressings C/D/I. IVF infusing through KEVIN PICC.
[2019-01-08 07:39] LABS: PLATELET COUNT (AUTO) 46 /CMM (150-450)
[2019-01-08] MEDS ORDERED: FUROSEMIDE 40 MG/4 ML VIAL IV SCH (08:00)
[2019-01-08] MEDS: POTASSIUM CHLORIDE 20 MEQ POWDER PACKET GT SCH ×3 (09:01→11:17)
[2019-01-08] MEDS: MUPIROCIN OINT 2% 22 GM TUBE SCH ×2 (09:04→20:35)
[2019-01-08] MEDS: MEROPENEM 1 G in IV NS 0.9% 100 ML IV SCH ×2 (09:04→20:32)
[2019-01-08 09:19] LABS: EOSINOPHILS % (MANUAL) 1 % (0-4); LYMPHOCYTES % (MANUAL) 3 % (16-48); MONOCYTES % (MANUAL) 3 % (0-11.0); NEUTROPHILS % (MANUAL) 93 (42-76)
--- NOTE | 2019-01-08 12:15 | NUR ---
ICU/RN: Informed Dr Casas of downward blood glucose trend to 66mg/dl due to NPO status. Aware of cardiology plans for diuresis; however pulmonology d/c'd lasix. Okay to restart IVF per MD.
[2019-01-08] MEDS: IV D5/0.45 NACL 1,000 ML IV PRN (12:56)
--- NOTE | 2019-01-08 15:30 | NUR ---
ICU/RN: Bed bath, wound care rendered. Tolerated well. Marked improvement in edema per partner at bedside.
--- NOTE | 2019-01-08 18:30 | NUR ---
ICU/RN: Spoke with Dr Garcia, labs and pt status reviewed. Last instance of very scant coffee ground clots noted in am from PEG to LIS. Noted with gastric residuals in tube; LIS held, PEG clamped. Orders noted and carried out. Per MD, "I'll see the pt in the am." Partner and family at bedside updated.
--- NOTE | 2019-01-08 19:30 | NUR ---
COUNTY COURT JUDGE NOTES RECEIVED PT W/ EYES OPEN,TRACKS,DOES NOT FOLLOW COMMANDS.ON VENT VIA ORAL ET-TUBE A/C 10,40% FIO2,TV 500 AND 5CM PEEP,SAT=98%.SUCTIONED FOR SCANT THICK YELLOW TO BEIGE SECRETIONS.ORAL CARE DONE.MONITOR SHOWS NSR.DPOA AT BEDSIDE VISITING,UPDATED W/ PT'S CONDITION.
[2019-01-08 19:36] LABS: HEMOGLOBIN 8.4 g/dL (13.5-17.5)
[2019-01-08] MEDS: DOXYCYCLINE HYCLATE (100 MG) 100 MG TABLET PO SCH (20:02)
[2019-01-08] MEDS: NEXIUM 40 MG VIAL IV SCH (20:32)
--- NOTE | 2019-01-08 23:00 | NUR ---
ICU/RN NOTES. VITAL SIGNS STABLE.MONITOR NSR WITH PAC'S.SUCTIONED FOR SCANT AMT.YELLOWISH SECRETIONS.
[2019-01-09] VITALS (23 sets, daily range): BP systolic 106–136; BP diastolic 57–82
[2019-01-09] MEDS: IPRATROPIUM NEB FS 0.5 MG/2.5 ML AMPUL.NEB NEB SCH ×6 (00:04→19:53)
[2019-01-09] MEDS: ALBUTEROL FS 2.5 MG/0.5 ML VIAL.NEB NEB SCH ×6 (00:04→19:53)
[2019-01-09] MEDS: BLOOD SUGAR DIAGNOSTIC 1 EACH STRIP IN SCH ×4 (00:41→18:16)
--- NOTE | 2019-01-09 02:00 | NUR ---
ICU/RN NOTES CONDITION UNCHANGED.SUCTIONED BY RT.REPOSITIONED AFTER.
--- NOTE | 2019-01-09 03:58 | NUR ---
ICU/RN NOTES COMPLETE BED BATH GIVEN AFTER BILATERAL ARM DRESSING CHANGED DONE AND PICC LINE DRESSING DONE.ORAL CARE DONE.TURNED TO LT LATERAL.
[2019-01-09 04:38] LABS: BASOPHILS % (AUTO) 0.1 % (0.0-2.0); EOSINOPHILS % (AUTO) 0.5 % (0.0-6.0); HEMATOCRIT 22 % (39-51); HEMOGLOBIN 7.8 g/dL (13.5-17.5); LYMPHOCYTES # (AUTO) 0.3 /CMM (0.8-4.8); LYMPHOCYTES % (AUTO) 6.9 % (20.0-44.0); MEAN CORPUSCULAR HGB CONC 35 g/dl (31.0-36.0); MEAN CORPUSCULAR VOLUME 100 fL (80-96); MONOCYTES # (AUTO) 0.2 /CMM (0.1-1.30); MONOCYTES % (AUTO) 3.7 % (2.0-12.0); NEUTROPHILS # (AUTO) 4.2 /CMM (1.8-8.9); NEUTROPHILS % (AUTO) 88.8 % (43.0-81.0); RED BLOOD CELL COUNT(AUTO) 2.21 MIL/uL (4.5-6.0); WHITE BLOOD COUNT (AUTO) 4.7 K/uL (4.3-11.0)
[2019-01-09 04:51] LABS: BILIRUBIN,TOTAL 0.8 mg/dL (0.2-1.0); CALCIUM, SERUM 7.4 mg/dL (8.5-10.1); CREATININE 0.6 mg/dL (0.6-1.3); MAGNESIUM 1.7 mg/dL (1.8-2.4); POTASSIUM 3.8 mmol/L (3.5-5.1); TOTAL PROTEIN, SERUM 3.2 g/dL (6.4-8.2)
--- NOTE | 2019-01-09 04:58 | NUR ---
Pt rec'd orally intubated via ETT sz #7.5 secured at 23cm at the lip line. No respiratory distress or sob noted. pt sx'd for moderate amount of pale yellow secretions. alarms are set and audible. vent plugged into red outlet. ambu bag bedside. will continue to monitor. Addendum: 01/09/19 at 0501 by ANA GUARDADO RT Amended: Links added.
[2019-01-09 05:05] LABS: ALBUMIN 1.2 g/dL (3.4-5.0); PLATELET COUNT (AUTO) 42 /CMM (150-450)
[2019-01-09] MEDS: IV D5/0.45 NACL 1,000 ML IV PRN ×3 (05:29→22:45)
[2019-01-09 05:49] LABS: EOSINOPHILS % (MANUAL) 1 % (0-4); LYMPHOCYTES % (MANUAL) 5 % (16-48); MONOCYTES % (MANUAL) 3 % (0-11.0); NEUTROPHILS % (MANUAL) 91 (42-76)
--- NOTE | 2019-01-09 06:21 | NUR ---
ICU/RN NOTES PT SLEEPING BUT EASILY AROUSE WHEN NAME CALLED,VITAL SIGNS STABLE.MONITOR SHOWS NSR. MRSA ISOLATION OBSERVED AND FOLLOWED.
[2019-01-09] MEDS: Magnesium 1GM/D5W 100ML PREMIX 100 ML IV SCH ×2 (07:51→08:59)
[2019-01-09] MEDS: MEROPENEM 1 G in IV NS 0.9% 100 ML IV SCH ×2 (08:28→21:45)
[2019-01-09] MEDS: NEXIUM 40 MG VIAL IV SCH ×2 (08:28→21:45)
[2019-01-09] MEDS ORDERED: POTASSIUM PHOSPHATE MM 15 MMOL in IV D5W 250 ML IV SCH (09:00)
[2019-01-09] MEDS: MUPIROCIN OINT 2% 22 GM TUBE SCH ×2 (09:03→21:45)
--- NOTE | 2019-01-09 09:30 | NUR ---
ICU/RN: Dr Zhong at bedside; discussed poc with pt's partner at length. With orders to resume IVF.
--- NOTE | 2019-01-09 13:15 | NUR ---
ICU/RN: Dr Garcia at bedside; updated on pt status. No bloody BM, coffee ground residuals noted orally or aspirated from GT. Per , ok to resume TF.
[2019-01-09] MEDS: TWOCAL HN 1,000 ML LIQUID GT PRN (13:28)
--- NOTE | 2019-01-09 14:30 | NUR ---
ICU/RN: Dr Rodriguez at bedside for pulmonology f/u. New orders noted and carried out. Pt placed on CPAP per order.
--- NOTE | 2019-01-09 16:00 | NUR ---
ICU/RN: Bed bath, wound care rendered. KCI mattress applied. Pt remains on CPAP. Tolerated well. Thick white secretions noted upon suctioning.
--- NOTE | 2019-01-09 17:12 | NUR ---
NIF & VITAL CAPACITY RESULT BELOW: NIF -20 cmH2O VITAL CAPACITY 0.38 mL Addendum: 01/09/19 at 1714 by THEODORE LAROSE RT Amended: Links added.
--- NOTE | 2019-01-09 19:30 | NUR ---
CRYSTAL MOUNTER RCD PT W/DX RESP FAIL; PT IS ALERT DOES NOT FOLLOW COMMANDS. ON CPAP 09/20 35%. PROVIDED ORAL CARE. PT HAS MIN SECRETIONS. RENDERED ORAL CARE. GREEN CATH DRAINING DARK YELLOW URINE W/SEDIMENT. KEVIN PICC PATENT AND WITH GOOD BLOOD RETURN; D5 1/2 NS @ 75 ML/HR. SCATTERED PETECHIAE ALL THROUGH OUT. BL FA SKIN TEAR WITH DRESSINGS IN PLACE. CONTINUE TO MONITOR.
--- NOTE | 2019-01-09 21:00 | NUR ---
RADIOLOGY SUPERVISOR SIGNIFICANT OTHER AT BEDSIDE; UPDATED WITH PLAN OF CARE.
[2019-01-09] MEDS: SULFAMETH/TRIMETH 800/160 MG 1 UDTAB TABLET PO SCH (21:45)
[2019-01-09] MEDS: IV NS 0.9% 250 ML IV PRN (22:45)
[2019-01-10] VITALS (25 sets, daily range): BP systolic 112–156; BP diastolic 47–79
[2019-01-10] MEDS: IPRATROPIUM NEB FS 0.5 MG/2.5 ML AMPUL.NEB NEB SCH ×7 (00:12→22:55)
[2019-01-10] MEDS: ALBUTEROL FS 2.5 MG/0.5 ML VIAL.NEB NEB SCH ×7 (00:12→22:55)
--- NOTE | 2019-01-10 00:25 | NUR ---
FLUE DUST LABORER BLOOD SUGAR 99; NO COVERAGE NEEDED PER SCALE. CONTINUE TO MONITOR.
[2019-01-10] MEDS: BLOOD SUGAR DIAGNOSTIC 1 EACH STRIP IN SCH ×4 (00:34→18:15)
--- NOTE | 2019-01-10 06:03 | NUR ---
INSTRUCTIONAL SUPPORT ASSISTANT BLOOD SUGAR 100; NO COVERAGE NEEDED PER SCALE. CONTINUE TO MONITOR.
--- NOTE | 2019-01-10 06:26 | NUR ---
WEBSPHERE COMMERCE CONSULTANT TOLERATED SIMV SETTINGS WELL. PT TURNED AND REPOSITIONED Q2HRS WELL GIVEN ORAL CARE. COMPLETE BED BATH RENDERED; ECG CHANGED.
--- NOTE | 2019-01-10 07:30 | NUR ---
SET UP PERSON INITIAL NOTE RECEIVED PATIENT INTUBATED. OPENS EYES SPONTANEOUSLY. FOLLOWS SIMPLE COMMANDS. NO S/S OF PAIN OR DISCOMFORT. NO RESPIRATORY DISTRESS NOTED. ETT 7.5CM/23CM AT THE LIP. TOLERATING CURRENT CPAP VENT SETTINGS. SKIN WARM AND DRY TO TOUCH. ON TELE MONITOR SR. WITH GT PATENT, INTACT, IN PLACE. GTF AT 35ML/HR, RESIDUAL NOTED >100ML, GTF HELD AT THIS TIME. NO N/V NOTED. KEVIN PICC LINE PATENT AND INTACT, IVF RUNNING. HOB ELEVATED. SIDE RAILS UP AND LOCKED. BED KEPT AT LOWEST POSITION. ISOLATION PRECAUTIONS OBSERVED. CALL LIGHT KEPT WITHIN EASY REACH. WILL CONTINUE TO MONITOR.
--- NOTE | 2019-01-10 08:51 | NUR ---
KENNEL MANAGER DOG TRACK NOTE SEEN AND EXAMINED BY DR. KEYON PAULA
--- NOTE | 2019-01-10 09:20 | NUR ---
NETWORK OPERATIONS MANAGER NOTE SEEN AND EXAMINED BY DR. MONTGOMERY
[2019-01-10 09:26] LABS: BASOPHILS % (AUTO) 0.1 % (0.0-2.0); EOSINOPHILS % (AUTO) 0.9 % (0.0-6.0); HEMATOCRIT 23 % (39-51); HEMOGLOBIN 8.2 g/dL (13.5-17.5); LYMPHOCYTES # (AUTO) 0.4 /CMM (0.8-4.8); LYMPHOCYTES % (AUTO) 7.8 % (20.0-44.0); MEAN CORPUSCULAR HGB CONC 36 g/dl (31.0-36.0); MEAN CORPUSCULAR VOLUME 99 fL (80-96); MONOCYTES # (AUTO) 0.2 /CMM (0.1-1.30); NEUTROPHILS # (AUTO) 4.7 /CMM (1.8-8.9); NEUTROPHILS % (AUTO) 87.2 % (43.0-81.0); PLATELET COUNT (AUTO) 54 /CMM (150-450); RED BLOOD CELL COUNT(AUTO) 2.35 MIL/uL (4.5-6.0); WHITE BLOOD COUNT (AUTO) 5.4 K/uL (4.3-11.0)
[2019-01-10] MEDS: SULFAMETH/TRIMETH 800/160 MG 1 UDTAB TABLET PO SCH ×2 (09:31→21:01)
[2019-01-10] MEDS: NEXIUM 40 MG VIAL IV SCH ×2 (09:31→21:01)
[2019-01-10] MEDS: MEROPENEM 1 G in IV NS 0.9% 100 ML IV SCH (09:31)
[2019-01-10] MEDS: MUPIROCIN OINT 2% 22 GM TUBE SCH ×2 (09:32→21:01)
[2019-01-10 09:33] LABS: CALCIUM, SERUM 7.1 mg/dL (8.5-10.1); CARBON DIOXIDE 26 mmol/L (21-32); CHLORIDE 105 mmol/L (98-107); CREATININE 0.5 mg/dL (0.6-1.3); GLUCOSE 278 mg/dL (74-106); PHOSPHORUS 1.7 mg/dL (2.5-4.9); POTASSIUM 3.5 mmol/L (3.5-5.1); SODIUM SERUM 136 mmol/L (136-145); UREA NITROGEN, BLOOD 15 mg/dL (7-18)
--- NOTE | 2019-01-10 09:33 | NUR ---
NIF AND VITAL CAPACITY RESULT BELOW PER DR. BAL: NIF -[id number] VITAL CAPACITY 0.80 mL Addendum: 01/10/19 at 0934 by THEODORE LAROSE RT Amended: Links added.
--- NOTE | 2019-01-10 12:00 | NUR ---
BAR BACK NOTE PATIENT WITH GTF RESIDUAL <100ML. GTF RESUMED. WILL CONTINUE TO MONITOR.
[2019-01-10] MEDS: TWOCAL HN 1,000 ML LIQUID GT PRN (18:16)
--- NOTE | 2019-01-10 19:00 | NUR ---
RECEIVED PATIENT IN NO ACUTE DISTRESS IN BED. PATIENT A/O X 1. PATIENT IS ON MECHANICAL VENT VIA ENDOTRACHEAL TUBE 7.10/01 AT THE LIP. PATIENT IS TOLERATING VENT SETTING AT CPAP MODE PS 12. PATIENT IS ON TELEMETRY WITH SR WITH 1ST DEGREE AV BLOCK. PATIENT HAS GTUBE THAT IS CLEAN DRY INTACT AND PATENT WITH GTUBE FEEDING. PATIENT HAS F/C THAT IS CLEAN DRY INTACT AND PATENT WITH YELLOW URINE DRAINING. PATIENT HAS LEFT UPPER ARM TRIPLE LUMEN CATHETER PICC LINE THAT IS CLEAN DRY INTACT AND PATENT WITH NS AT TKO. BED IN LOW LOCK POSITION WITH RAILS UP X 2. CALL LIGHT WITHIN REACH AND ALL SAFETY MEASURES ENSURED AND CARRIED OUT. WILL CONTINUE TO MONITOR PATIENT.
--- NOTE | 2019-01-10 19:38 | NUR ---
TUBE REPAIRER CLOSING NOTE NO RESPIRATORY DISTRESS NOTED. ETT 7.5/23CM AT LIP. SIGNIFICANT OTHER AT BEDSIDE MOST OF THE DAY. TOLERATING CPAP VENT SETTING . SR ON TELE MONITOR. NO S/S OF PAIN OR DISCOMFORT. GT PATENT, INTACT, IN PLACE. WITH MINIMAL RESIDUAL NOTED. F/C PATENT, INTACT, DRAINING BY GRAVITY. ALL DUE MEDS GIVEN. WOUND TX DONE. HOB ELEVATED. SIDE RAILS UP AND LOCKED. CALL LIGHT KEPT WITHIN EASY REACH. CONTINUITY OF CARE ENDORSED TO PM SHIFT.
--- NOTE | 2019-01-10 20:56 | NUR ---
Received Pt intubated 7.5 ETT secured at 23cm at the lip. No resp distress noted, tolerating CPAP mode. Sx'd for sml amt of thin white secretions. Vent alarms set and audible. Ambu bag at bedside. Will continue to monitor. Addendum: 01/10/19 at 2057 by JOSE LU RT Amended: Links added.
[2019-01-11] VITALS (25 sets, daily range): BP systolic 99–137; BP diastolic 48–87
[2019-01-11] MEDS: BLOOD SUGAR DIAGNOSTIC 1 EACH STRIP IN SCH ×4 (00:18→17:18)
[2019-01-11] MEDS: IPRATROPIUM NEB FS 0.5 MG/2.5 ML AMPUL.NEB NEB SCH ×6 (03:01→23:32)
[2019-01-11] MEDS: ALBUTEROL FS 2.5 MG/0.5 ML VIAL.NEB NEB SCH ×6 (03:01→23:32)
[2019-01-11 04:30] LABS: BASOPHILS % (AUTO) 0.4 % (0.0-2.0); EOSINOPHILS % (AUTO) 1.1 % (0.0-6.0); HEMATOCRIT 23 % (39-51); HEMOGLOBIN 8.2 g/dL (13.5-17.5); LYMPHOCYTES # (AUTO) 0.5 /CMM (0.8-4.8); LYMPHOCYTES % (AUTO) 8.7 % (20.0-44.0); MEAN CORPUSCULAR HGB CONC 36 g/dl (31.0-36.0); MEAN CORPUSCULAR VOLUME 99 fL (80-96); MONOCYTES # (AUTO) 0.3 /CMM (0.1-1.30); MONOCYTES % (AUTO) 4.7 % (2.0-12.0); NEUTROPHILS # (AUTO) 4.9 /CMM (1.8-8.9); NEUTROPHILS % (AUTO) 85.1 % (43.0-81.0); PLATELET COUNT (AUTO) 61 /CMM (150-450); RED BLOOD CELL COUNT(AUTO) 2.31 MIL/uL (4.5-6.0); WHITE BLOOD COUNT (AUTO) 5.7 K/uL (4.3-11.0)
[2019-01-11 04:41] LABS: CALCIUM, SERUM 7.4 mg/dL (8.5-10.1); CREATININE 0.6 mg/dL (0.6-1.3); MAGNESIUM 1.9 mg/dL (1.8-2.4); PHOSPHORUS 1.7 mg/dL (2.5-4.9); POTASSIUM 4.1 mmol/L (3.5-5.1)
[2019-01-11 06:16] LABS: EOSINOPHILS % (MANUAL) 1 % (0-4); LYMPHOCYTES % (MANUAL) 6 % (16-48); MONOCYTES % (MANUAL) 3 % (0-11.0); NEUTROPHILS % (MANUAL) 90 (42-76)
--- NOTE | 2019-01-11 06:36 | NUR ---
PATIENT REMAINS IN NO ACUTE DISTRESS IN BED. PATIENT DID NOT HAVE ANY SIGNIFICANT CHANGE IN CONDITION DURING SHIFT. PATIENT TOLERATED CPAP SETTING ON THE VENTILATOR. ALL NEEDS MET, ALL ORDERS CARRIED OUT. WILL ENDORSE CARE TO AM RN FOR CONTINUITY OF CARE.
--- NOTE | 2019-01-11 07:00 | NUR ---
RN NOTES RECEIVED PATIENT ON BED, INTUBATED, ON CPAP, TOLERATING CURRENT SETTING WELL, O2 SAT 97%, ON TELE HR IN 70S ', TF AT 20CC/HR RUNNING , 30CC TF RESIDUAL NOTED, CONTINUE TO MONITOR THE RESIDUAL , GREEN DRINING TO GRAVITY, L UPPER ARM PICC LINE SITE CLEAN, DRY AND INTACT, SR UP x3, CALL LIGHT WITHIN EASY REACH, BED LOCKED AND IN LOWEST POSITION, CONTINUE TO MONITOR .
[2019-01-11] MEDS: SULFAMETH/TRIMETH 800/160 MG 1 UDTAB TABLET PO SCH ×2 (08:38→20:44)
[2019-01-11] MEDS: NEXIUM 40 MG VIAL IV SCH ×2 (08:38→20:44)
[2019-01-11] MEDS: MUPIROCIN OINT 2% 22 GM TUBE SCH ×2 (08:39→20:45)
[2019-01-11] MEDS ORDERED: NEUTRA PHOS 1 POWD.PACKET NG ONE (09:00)
[2019-01-11 11:46] LABS: ABG BASE EXCESS -0.1 mmol/L; ABG OXYGEN SATURATION 92.3 % (92.0-98.5); ABG PCO2 28.7 mmHg (35.0-45.0); ABG PH 7.512 (7.350-7.450); ABG PO2 65.9 mmHg (75.0-100.0); AaDO2 150.3 mmHg; COHb 0.3 % (0.5-1.5); MetHb 1.2 % (0.0-1.5); O2Hb 90.9 % (94.0-97.0); PEEP,BG 5 cm H2O; SITE, ABG Right Radial; VENT MODE, BG CPAP PS8; VT, ABG 500 mL
--- NOTE | 2019-01-11 11:50 | NUR ---
RN NOTES DR KHANH JOSEFED REGARDING ABG RESULTS, NEW ORDER RECEIVED .
--- NOTE | 2019-01-11 17:29 | NUR ---
RT END OF THE SHIFT REPORT, PT. 78 Y OLD MALE PT. RECEIVED @0700 AM ORALLY INTUBATED ETT # 7.5 @ 23CM LIP LINE ON [facility]. VENT WITH NOTED CPAP SETTINGS. VENT PS CHANGES DONE @[address] CASSIDY ORDER POST ABG @ 1210 PT. PLACED ON SIMV MODE. PT SUX'D MOD. THICK WHITE SECRETIONS. B/S COARSE/RALES BILATERALLY, EQUAL CHEST RISE NOTED. VENT IS PLUGGED INTO RED OUTLET. ALARMS ARE ON AND FUNCTIONAL. HME CHANGED, PECAN MALLOW DIPPER DONE AMBU BAG AT BEDSIDE. TX'S GIVEN INLINE Q4, AND NO ADVERSE REACTION NOTED. FAMILY MEMBERS AT THE BEDSIDE. WILL CONTINUE TO MONITOR. REPORT WILL PASS TO PM SHIFT. Addendum: 01/11/19 at 1732 by MILES STORY RT Amended: Links added.
--- NOTE | 2019-01-11 18:00 | NUR ---
RN NOTES PT STILL INTUBATED, ORAL AND ET CARE DONE PRN , VSS STABLE, SUPPORTIVE FAMILY AT THE BEDSIDE, TF AT 30CC/HR AT THIS TIME, L UPPER ARM PICC LINE SITE CLEAN ,DRY AND INTACT, WILL ENDORSE TO DIALYSIS EQUIPMENT TECHNICIAN NURSE FOR CONTINUITY OF CARE.
[2019-01-11] MEDS: TWOCAL HN 1,000 ML LIQUID GT PRN (19:14)
--- NOTE | 2019-01-11 20:00 | NUR ---
ICU/RN NOTES RECEIVED PT ON VENT VIA ORAL ET-TUBE,ON SIMV 12/MIN.PS OF 10,TV 500,FIO2 35%,SUCTIONED BY RT FOR SCANT AMT.WHITE SECRETIONS.ORAL CARE DONE.PARTIALLY OPENS EYES TO TACTILE STIMULATION,DOES NOT TRACK,DOES NOT FOLLOW COMMANDS.IVF OF NS AT TKO VIA LEFT UPPER PICC LINE.MULTIPLE SKIN REARS ON BILATERAL ARMS,RT ARM >THAN LEFT.BILATERAL ARMS WITH DRESSINGS THAT ARE INTACT AND WRAPPED WITH KERLIX.GREEN TO DRAINAGE BAG W/ SCANT YELLOW-BHARAT URINE.TOLERATING TUBE FEEDING WITH NO RESIDUAL AFTER CHECKING PLACEMENT AND PATENCY.DPOA AT BEDSIDE,UPDATED W/ PATIENT'S CONDITION.
--- NOTE | 2019-01-11 22:19 | NUR ---
NOTICED SKIN BREAK ON BOTH SIDES OF THE CHEEK BONE. NOTIFIED RJ FARAH. CHANGED ANCHOR FAST AND PLACED MEPELIX ON BOTH SIDES. Addendum: 01/11/19 at 2221 by JOSE LU RT Amended: Links added.
[2019-01-12] VITALS (24 sets, daily range): BP systolic 97–123; BP diastolic 52–74
[2019-01-12] MEDS: BLOOD SUGAR DIAGNOSTIC 1 EACH STRIP IN SCH ×4 (00:04→18:05)
--- NOTE | 2019-01-12 02:00 | NUR ---
ICU/RN NOTES. SUCTIONED FOR SCANT AMOUNT WHITE SECRETIONS FROM ET-TUBE AND MODERATE AMOUNT FROM MOUTH.ORAL CARE DONE. REPOSITIONED AND TURNED.PT AWAKE ALERT W/ EYES OPEN.
[2019-01-12] MEDS: ALBUTEROL FS 2.5 MG/0.5 ML VIAL.NEB NEB SCH ×6 (03:35→23:47)
[2019-01-12] MEDS: IPRATROPIUM NEB FS 0.5 MG/2.5 ML AMPUL.NEB NEB SCH ×6 (03:35→23:47)
--- NOTE | 2019-01-12 07:00 | NUR ---
ICU/RN NOTES REPORT AND CARE OF PT. GIVEN TO NICK RN.
--- NOTE | 2019-01-12 08:00 | NUR ---
ICU/RN INITIAL NOTES,AM RECEIVED BEDSIDE REPORT FROM NIGHT RN. PT INTUBATED, ETT 7.5 22CM AT THE LIP, ON VENT SETTINGS ORDERED BY MD. NO ACUTE DISTRESS NOTED AT THIS TIME. TOLERATING SETTINGS WELL. PT SINUS ON TELE. POSSIBLE WEANING TODAY. GREEN CATH IN PLACE, DRAINING YELLOW URINE. GTUBE IN PLACE, TUBE FEEDING INFUSING ORDERED, NO RESIDUAL NOTED, INCREASED TO GOAL. LEFT UPPER ARM PICC PATENT AND INTACT, NO S/S OF INFECTION NOTED. ALL NEEDS WILL BE ATTENDED TO, SAFETY MEASURES TAKEN, BED IN LOW POSITION, SIDE RAILS UP. CALL LIGHT WITHIN REACH
--- NOTE | 2019-01-12 08:05 | NUR ---
ICU/RN: TEMP 99.3. COOLING MEASURES TAKEN, WILL REASSESS
[2019-01-12] MEDS: SULFAMETH/TRIMETH 800/160 MG 1 UDTAB TABLET PO SCH ×2 (08:12→20:46)
[2019-01-12] MEDS: MUPIROCIN OINT 2% 22 GM TUBE SCH ×2 (08:12→20:48)
[2019-01-12] MEDS: NEXIUM 40 MG VIAL IV SCH (08:12)
--- NOTE | 2019-01-12 10:00 | NUR ---
ICU/RN: PER MD ORDERS PT PLACED ON CPAP MODE. WILL CONTINUE TO MONITOR.
[2019-01-12 11:15] LABS: BASOPHILS % (AUTO) 0.5 % (0.0-2.0); HEMOGLOBIN 7.2 g/dL (13.5-17.5); LYMPHOCYTES # (AUTO) 0.5 /CMM (0.8-4.8); LYMPHOCYTES % (AUTO) 10.5 % (20.0-44.0); MEAN CORPUSCULAR HGB CONC 35 g/dl (31.0-36.0); MEAN CORPUSCULAR VOLUME 100 fL (80-96); MONOCYTES # (AUTO) 0.2 /CMM (0.1-1.30); MONOCYTES % (AUTO) 5.3 % (2.0-12.0); NEUTROPHILS # (AUTO) 3.7 /CMM (1.8-8.9); NEUTROPHILS % (AUTO) 82.7 % (43.0-81.0); PLATELET COUNT (AUTO) 74 /CMM (150-450); RED BLOOD CELL COUNT(AUTO) 2.04 MIL/uL (4.5-6.0); WHITE BLOOD COUNT (AUTO) 4.5 K/uL (4.3-11.0)
[2019-01-12 11:20] LABS: HEMATOCRIT 20 % (39-51)
[2019-01-12 11:33] LABS: BILIRUBIN,TOTAL 0.7 mg/dL (0.2-1.0); CALCIUM, SERUM 7.3 mg/dL (8.5-10.1); CREATININE 0.6 mg/dL (0.6-1.3); MAGNESIUM 1.8 mg/dL (1.8-2.4); PHOSPHORUS 2.2 mg/dL (2.5-4.9); POTASSIUM 4.2 mmol/L (3.5-5.1); TOTAL PROTEIN, SERUM 3.4 g/dL (6.4-8.2)
[2019-01-12 11:42] LABS: ALBUMIN 1.3 g/dL (3.4-5.0)
[2019-01-12 11:55] LABS: LYMPHOCYTES % (MANUAL) 6 % (16-48); MONOCYTES % (MANUAL) 6 % (0-11.0); NEUTROPHILS % (MANUAL) 88 (42-76)
--- NOTE | 2019-01-12 12:15 | NUR ---
RT PER DR MACARIO ORDER PATIENT WAS EXTUBATED AND PLACED ON SUPPLEMENTAL O2. PATIENT APPEARS IN NO DISTRESS AT THIS TIME. WILL CONTINUE TO MONITOR CLOSELY
--- NOTE | 2019-01-12 12:20 | NUR ---
ICU/RN: PT EXTUBATED AT 1215, PLACED ON 5LITERS O2 VIA NASAL CANULA, TOLERATING WELL AT THIS TIME. NO DISTRESS NOTED. WILL CONTINUE TO MONITOR
[2019-01-12] MEDS ORDERED: FUROSEMIDE 20 MG/2 ML VIAL IV ONE (12:30)
--- NOTE | 2019-01-12 19:16 | NUR ---
ICU/RN: ENDING NOTES,AM BEDSIDE REPORT ENDORSED TO NIGHT NURSE. PT ON NASAL CANULA 5LITERS, TOLERATING WELL, NO S/S OF RESPIRATORY DISTRESS NOTED. GREEN CATH IN PLACE, DRAINING YELLOW URINE. GTUBE FEEDING INFUSING AT GOAL RATE, TOLERATING WELL, NO RESIDUAL NOTED. ALL NEEDS ATTENDED TO, SAFETY MEASURES TAKEN, BED IN LOW POSITING, SIDE RAILS UP, CALL LIGHT WITHIN REACH.
--- NOTE | 2019-01-12 19:30 | NUR ---
ICU/RN NOTES RECEIVED PT AWAKE ALERT WITH EYES OPEN,TRACKS FOLLOWS SIMPLE VERBAL COMMANDS.MONITOR SHOWS NSR.ON 3LN/C WITH SPO2 100%.SUCTIONED FOR SCANT AMT OF WHITE SECRETIONS.ORAL CARE DONE.
[2019-01-12] MEDS: TWOCAL HN 1,000 ML LIQUID GT PRN (19:52)
--- NOTE | 2019-01-12 20:00 | NUR ---
ICU/RN NOTES SIGNIFICANT OTHER 'DPOA' AT BEDSIDE VISITING,AWARE HAYLIE PT'S PROGRESS.SUCTIONED PT ORALLY FOR SCANT WHITE SECRETIONS.ORAL CARE DONE.
[2019-01-12] MEDS: IV NS 0.9% 250 ML IV PRN (22:38)
[2019-01-13] VITALS (23 sets, daily range): BP systolic 91–125; BP diastolic 40–73
--- NOTE | 2019-01-13 | NUR ---
ICU/RN NOTES REPOSITIONED AND TURNED.TOLERATING 3LN/C W/ SAT OF 100%.
[2019-01-13] MEDS: BLOOD SUGAR DIAGNOSTIC 1 EACH STRIP IN SCH ×5 (00:37→23:49)
--- NOTE | 2019-01-13 02:00 | NUR ---
ICU/RN NOTES COMPLETE BED BATH GIVEN.BILATERAL ARM DRESSING INTACT W/ MINIMAL SEROUS DRAINAGE FROM LEFT ARM,CHUX CHANGED.PT A LITTLE BIT AGGRESSIVE DURING BATH,TRIED TO SCRATCH NURSE'S ARM AND RESISTIVE TO HAVE GOWN CHANGED.SUCTIONED FOR SCANT WHITE SECRETIONS FROM MOUTH.ORAL CARE DONE.REPOSITIONED AFTER.
[2019-01-13] MEDS: ALBUTEROL FS 2.5 MG/0.5 ML VIAL.NEB NEB SCH ×6 (03:23→22:56)
[2019-01-13] MEDS: IPRATROPIUM NEB FS 0.5 MG/2.5 ML AMPUL.NEB NEB SCH ×6 (03:24→22:56)
--- NOTE | 2019-01-13 04:15 | NUR ---
ICU/RN NOTES DESATURATED TO 88% EVEN AFTER SUCTIONING PT,MODERATE SECRETIONS.PT AWAKE ALERT AND ORIENTEDX2.SPO2 GRADUALLY WENT UP TO 93%.CONTINUES TO TOLERATE TUBE FEEDINGS WELL.
[2019-01-13 04:29] LABS: BASOPHILS % (AUTO) 0.5 % (0.0-2.0); EOSINOPHILS % (AUTO) 0.7 % (0.0-6.0); HEMOGLOBIN 7.1 g/dL (13.5-17.5); LYMPHOCYTES # (AUTO) 0.5 /CMM (0.8-4.8); LYMPHOCYTES % (AUTO) 10.8 % (20.0-44.0); MEAN CORPUSCULAR HGB CONC 36 g/dl (31.0-36.0); MEAN CORPUSCULAR VOLUME 101 fL (80-96); MONOCYTES # (AUTO) 0.2 /CMM (0.1-1.30); MONOCYTES % (AUTO) 5.2 % (2.0-12.0); NEUTROPHILS # (AUTO) 3.8 /CMM (1.8-8.9); NEUTROPHILS % (AUTO) 82.8 % (43.0-81.0); PLATELET COUNT (AUTO) 80 /CMM (150-450); WHITE BLOOD COUNT (AUTO) 4.6 K/uL (4.3-11.0)
[2019-01-13 04:42] LABS: CALCIUM, SERUM 7.4 mg/dL (8.5-10.1); CREATININE 0.6 mg/dL (0.6-1.3); MAGNESIUM 1.8 mg/dL (1.8-2.4); PHOSPHORUS 2.3 mg/dL (2.5-4.9); POTASSIUM 4.2 mmol/L (3.5-5.1)
[2019-01-13 04:52] LABS: HEMATOCRIT 20 % (39-51); RED BLOOD CELL COUNT(AUTO) 1.97 MIL/uL (4.5-6.0)
[2019-01-13 06:25] LABS: LYMPHOCYTES % (MANUAL) 10 % (16-48); MONOCYTES % (MANUAL) 4 % (0-11.0); NEUTROPHILS % (MANUAL) 86 (42-76)
--- NOTE | 2019-01-13 07:00 | NUR ---
ICU/RN NOTES REPORT AND CARE OF PT. GIVEN TO AFSATU RN.
--- NOTE | 2019-01-13 07:15 | NUR ---
RIG OPERATOR INITIAL NOTES PT RECEIVED ON 5L VIA NC AND SETTINGS WELL. NO SOB OR ACUTE SIGNS OF DISTRESS NOTED. BREATHING IS EVEN AND UNLABORED. PT ABLE TO FOLLOW SIMPLE COMMANDS WHEN PROMPTED. HE IS NOTED TO BE SR ON THE MONITOR. F/C NOTED TO BE C/D/I AND DRAINING TO GRAVITY. LEFT UPPER ARM PICC LINE NOTED TO BE PATENT AND INTACT.NO REDNESS OR SIGNS OF INFILTRATION NOTED. GTUBE NOTED TO BE PATENT. PLACEMENT VERIFIED VIA AUSCULTATION. PT TOLERATING GTUBE FEEDINGS WELL. NO RESIDUALS ASPIRATED AT THIS TIME. BED IN LOW LOCKED POSITION, SIDE RAILS UP X2, ISOLATION PRECAUTIONS OBSERVED. WILL CONTINUE TO MONITOR
[2019-01-13] MEDS: SULFAMETH/TRIMETH 800/160 MG 1 UDTAB TABLET PO SCH ×2 (08:06→21:29)
[2019-01-13] MEDS: FUROSEMIDE 40 MG/4 ML VIAL IV SCH ×3 (08:07→16:51)
--- NOTE | 2019-01-13 08:47 | NUR ---
WOUND CARE CONSULT: PT PRESENTS WITH MULTIPLE SKIN ISSUES INCLUDING GENERALIZED EDEMA WHICH IS PITTING (1+), VERY FRAGILE SKIN WITH MULTIPLE AREAS OF DISCOLORATION, SKIN LESIONS INCLUDING RAISED LESION TO LEFT GROIN AREA, SKIN TEARS TO BILATERAL ARMS, RASH WITH INCONTINENCE ASSOCIATED SKIN DAMAGE TO PERIANAL AREA, ALL PRESENT ON ADMISSION. DEFER TO MD FOR GROIN LESION. PT IS CACHECTIC. RECOMMENDATIONS MADE FOR SKIN PROTECTION AND WOUND CARE. DISCUSSED WITH NURSING STAFF. PT ON FIRST STEP [facility]. DIETARY CONSULT IN PLACE. WILL SEE PRN. MD IN AGREEMENT WITH PLAN OF CARE. Addendum: 01/13/19 at 0854 by NIR CM WNDNU Amended: Links added.
[2019-01-13] MEDS ORDERED: NEUTRA PHOS 1 POWD.PACKET NG ONE (09:00)
[2019-01-13] MEDS: MUPIROCIN OINT 2% 22 GM TUBE SCH ×2 (09:05→21:30)
[2019-01-13] MEDS: CLOTRIMAZOLE 1% 15 GM TUBE TP SCH ×2 (11:08→17:07)
--- NOTE | 2019-01-13 12:15 | NUR ---
COLORER HIDES AND SKINS NOTES: MD ROUNDING (DR OWENS) MD AT BEDSIDE AND UPDATED ON RECENT LABS AND PT'S CONDITION. PER MD, PT SHOULD STAY IN ICU OVERNIGHT FOR CLOSER MONITORING AND MAY BE DOWNGRADED TOMORROW IF HE REMAINS STABLE. ALSO STATES THAT PT HAS COMPLETED HIS BACTROBAN ROUNDS AND ISOLATION MAY BE D/C
[2019-01-13] MEDS ORDERED: FUROSEMIDE 40 MG/4 ML VIAL IV ONE (16:30)
--- NOTE | 2019-01-13 18:55 | NUR ---
FRANCHISE MANAGER CLOSING NOTES PT REMAINS STABLE. ALL NEEDS ANTICIPATED FOR AND MET DURING SHIFT AND ORDERS CARRIED OUT ACCORDINGLY. ALL DUE MEDS GIVEN PT'S CONDITION WILL PERMIT. LEFT UPPER ARM PICC REMAINS PATENT AND INTACT. GTUBE REMAINS PATENT AND INTACT. PRN AND WOUND CARE RENDERED. SAFETY AND ISOLATION PRECAUTIONS REMAIN INTACT. WILL ENDORSE TO NIGHTSHIFT RN FOR CHOCO
--- NOTE | 2019-01-13 20:00 | NUR ---
Received patient awake alert non verbal following simple commands.No acute distress noted.Respiration even and unlabored with O2 4L NC SPO2 99%.SR per tele monitoring. GT feeding tolerating well.HOB elevated.FC to gravity draining moderate yellow urine. Turned and repositioned to comfort.Safety precaution maintained with call light at bedside.
[2019-01-14] VITALS (23 sets, daily range): BP systolic 90–114; BP diastolic 27–67
--- NOTE | 2019-01-14 | NUR ---
Patient resting in no acute distress.VS remains stable.Turned and repositioned.
[2019-01-14] MEDS: IPRATROPIUM NEB FS 0.5 MG/2.5 ML AMPUL.NEB NEB SCH ×9 (03:15→23:17)
[2019-01-14] MEDS: ALBUTEROL FS 2.5 MG/0.5 ML VIAL.NEB NEB SCH ×6 (03:15→23:16)
[2019-01-14] MEDS: TWOCAL HN 1,000 ML LIQUID GT PRN (03:22)
[2019-01-14 04:50] LABS: BASOPHILS % (AUTO) 0.4 % (0.0-2.0); EOSINOPHILS % (AUTO) 1.4 % (0.0-6.0); LYMPHOCYTES # (AUTO) 0.5 /CMM (0.8-4.8); LYMPHOCYTES % (AUTO) 13.3 % (20.0-44.0); MEAN CORPUSCULAR HGB CONC 36 g/dl (31.0-36.0); MEAN CORPUSCULAR VOLUME 101 fL (80-96); MONOCYTES # (AUTO) 0.3 /CMM (0.1-1.30); NEUTROPHILS # (AUTO) 3.1 /CMM (1.8-8.9); NEUTROPHILS % (AUTO) 77.9 % (43.0-81.0); PLATELET COUNT (AUTO) 94 /CMM (150-450)
[2019-01-14 05:10] LABS: BILIRUBIN,TOTAL 0.5 mg/dL (0.2-1.0); CALCIUM, SERUM 7.6 mg/dL (8.5-10.1); CREATININE 0.7 mg/dL (0.6-1.3); MAGNESIUM 1.7 mg/dL (1.8-2.4); PHOSPHORUS 3.4 mg/dL (2.5-4.9); POTASSIUM 4.1 mmol/L (3.5-5.1); TOTAL PROTEIN, SERUM 3.6 g/dL (6.4-8.2)
[2019-01-14 05:24] LABS: ALBUMIN 1.4 g/dL (3.4-5.0)
[2019-01-14 05:49] LABS: RED BLOOD CELL COUNT(AUTO) 1.94 MIL/uL (4.5-6.0)
[2019-01-14 05:50] LABS: EOSINOPHILS % (MANUAL) 1 % (0-4); LYMPHOCYTES % (MANUAL) 9 % (16-48); MONOCYTES % (MANUAL) 5 % (0-11.0); NEUTROPHILS % (MANUAL) 85 (42-76)
[2019-01-14 06:02] LABS: HEMATOCRIT 20 % (39-51)
[2019-01-14] MEDS: BLOOD SUGAR DIAGNOSTIC 1 EACH STRIP IN SCH (06:21)
--- NOTE | 2019-01-14 06:30 | NUR ---
Patient resting.VS stable.Bathed and complete linen changed.Secretions suctioned and oral care done.Tolerating gt feeding.AM labs resulted.H/H 11/28 called to COMMUNICATIONS CONTROLLER,Crystal Mendoza with orders to transfuse 1 unit PRBC and carried out.Will endorse to day shift for continuity of care.
--- NOTE | 2019-01-14 07:05 | NUR ---
YOGHURT MAKER INITIAL NOTES PT RECEIVED ON 3L VIA NC AND SETTINGS WELL. NO SOB OR ACUTE SIGNS OF DISTRESS NOTED. BREATHING IS EVEN AND UNLABORED. HE IS NOTED TO BE SR ON THE MONITOR. F/C NOTED TO BE C/D/I AND DRAINING TO GRAVITY. LEFT UPPER ARM PICC LINE NOTED TO BE PATENT AND INTACT.NO REDNESS OR SIGNS OF INFILTRATION NOTED. GTUBE NOTED TO BE PATENT. PLACEMENT VERIFIED VIA AUSCULTATION. PT TOLERATING GTUBE FEEDINGS WELL. LESS THAN 10CC OF RESIDUALS ASPIRATED AT THIS TIME. BED IN LOW LOCKED POSITION, SIDE RAILS UP X2, CALL LIGHT WITHIN REACH. WILL CONTINUE TO MONITOR
[2019-01-14] MEDS: FUROSEMIDE 100 MG/10 ML VIAL IV SCH ×3 (09:02→16:21)
[2019-01-14] MEDS: SULFAMETH/TRIMETH 800/160 MG 1 UDTAB TABLET PO SCH (09:03)
[2019-01-14] MEDS: IV NS 0.9% 250 ML IV PRN (09:06)
[2019-01-14] MEDS: CLOTRIMAZOLE 1% 15 GM TUBE TP SCH ×2 (09:07→16:23)
[2019-01-14] MEDS: Z GUARD REMEDY 2 OZ OINT TP PRN (09:08)
[2019-01-14] MEDS: MUPIROCIN OINT 2% 22 GM TUBE SCH (09:08)
--- NOTE | 2019-01-14 09:40 | NUR ---
PHOTOGRAPHIC PLATEMAKER NOTES: MD ROUNDING (DR OWENS) MD AT BEDSIDE AND MADE AWARE OF PT'S MOST RECENT LABS AND CURRENT CONDITION. MD AGGRESS WITH 1 UNIT PRBC INFUSION. CONSENT OBTAINED AND SIGNED BY PT'S PARTNER AND MD. VERBAL ORDERS ALSO OBTAINED TO D/C ACCU CHECKS, AND BACTROBAN. PER MD, PT MAY ALSO BE DOWNGRADED TO [facility] IF CLEARED BY GERMINATION WORKER
[2019-01-14] MEDS: Magnesium 1GM/D5W 100ML PREMIX 100 ML IV SCH ×2 (12:17→13:26)
--- NOTE | 2019-01-14 14:30 | NUR ---
MD OWENS REMINDED TO COMPLETE PT'S MED RECON
--- NOTE | 2019-01-14 16:49 | NUR ---
COTTON ACREAGE MEASURERLEAD CARE MANAGER NOTES PT TRANSFERRED TO [facility] ROOM 108 VIA [facility]S TRANSPORT. VSS. ALL DUE MEDS GIVEN AND ORDERS CARRIED OUT ACCORDINGLY. PRN CARE RENDERED. CENTRAL LINE REMAINS C/D/I. PT TOLERATED 1 UNIT PRBC WELL. NO S/S OF REACTION NOTED. GTUBE REMAINED PATENT AND INTACT. PT TOLERATED FEEDINGS WELL THROUGHOUT SHIFT. REPORT GIVEN TO RJ PATE FOR CHOCO
--- NOTE | 2019-01-14 16:55 | NUR ---
[facility] RN NOTES PT RECEIVED TRANSFER FROM ICU, AO X 1, OPENS EYE, FOLLOS SIMPLE COMMAND, PARTNER AT BEDSIDE. ON 3L O2 VIA NC AND SATTING 94%. NO SOB OR ACUTE SIGNS OF DISTRESS NOTED. BREATHING IS EVEN AND UNLABORED. SR HR 98 ON THE MONITOR. F/C NOTED TO BE C/D/I AND DRAINING TO GRAVITY. LEFT UPPER ARM PICC LINE NOTED, PATENT AND INTACT. NO REDNESS OR SIGNS OF INFILTRATION NOTED. GTUBE NOTED PATENT. PLACEMENT CHECKED AND VERIFIED VIA AUSCULTATION. GTUBE FEEDING, LESS THAN 10CC OF RESIDUALS ASPIRATED AT THIS TIME. BED IN LOW LOCKED POSITION, SIDE RAILS UP X2, CALL LIGHT WITHIN REACH. WILL CONTINUE TO MONITOR
--- NOTE | 2019-01-14 19:14 | NUR ---
[facility] RN NOTES PATIENT RESTING COMFORTABLY. NOT IN ANY DISTRESS. ALL NEEDS ATTENDED. ENDORSED TO NEXT SHIFT FOR CHOCO.
--- NOTE | 2019-01-14 19:30 | NUR ---
RN NOTES RECEIVED PATIENT EYES OPEN, RESPONSIVE TO NAME AND FOLLOW SIMPLE COMMAND. NO ACUTE RESPIRATORY DISTRESS. TELE MONITOR REVEALS SR HR 84 . DENIES PAIN. NO SOB. WITH O2 3LPM VIA NC ANS TOLERATED WELL SATURATION 94%. PRESENT WITH GTF 2 PORFIRIO HN @ 40 ML.HR INTACT AND PATENCY CHECKED NO LEAK. ZERO RESIDUAL. IV SITE ON KEVIN PICC LINE CLEAN AND DRY, FLUSHED WELL NO INFILTRATION. WITH GOOD BLOOD RETURN. S/P 1 UNIT OF PRBC PER AM SHIFT DUE TO HGB 7.0 , NO ACTIVE BLEEDING. WILL RECHECK IN AM LABS PER MD. KEPT PT CLEAN AND COMFORTABLE IN BED. CALL LIGHT KEPT WITHIN EASY REACH. BED LOCKED. WILL CONTINUE TO MONITOR.
[2019-01-14] MEDS: ATORVASTATIN 10 MG TABLET PO SCH (21:31)
[2019-01-14] MEDS: POLYVINYL ALCOHOL/POVIDONE 0.4 ML DROPERETTE EACHEYE SCH (21:31)
[2019-01-15] VITALS: BP 101/27
[2019-01-15] MEDS: IPRATROPIUM NEB FS 0.5 MG/2.5 ML AMPUL.NEB NEB SCH ×7 (03:30→23:45)
[2019-01-15] MEDS: ALBUTEROL FS 2.5 MG/0.5 ML VIAL.NEB NEB SCH ×6 (03:32→23:45)
[2019-01-15 04:00] VITALS: BP 108/51
[2019-01-15] MEDS: POLYVINYL ALCOHOL/POVIDONE 0.4 ML DROPERETTE EACHEYE SCH ×3 (05:38→21:21)
[2019-01-15 06:42] LABS: BILIRUBIN,TOTAL 0.5 mg/dL (0.2-1.0); CALCIUM, SERUM 7.4 mg/dL (8.5-10.1); CREATININE 0.7 mg/dL (0.6-1.3); PHOSPHORUS 3.2 mg/dL (2.5-4.9); POTASSIUM 4.1 mmol/L (3.5-5.1); TOTAL PROTEIN, SERUM 3.6 g/dL (6.4-8.2)
[2019-01-15 06:46] LABS: ALBUMIN 1.3 g/dL (3.4-5.0)
[2019-01-15 07:21] LABS: BASOPHILS % (AUTO) 0.4 % (0.0-2.0); EOSINOPHILS % (AUTO) 0.8 % (0.0-6.0); HEMATOCRIT 23 % (39-51); HEMOGLOBIN 7.9 g/dL (13.5-17.5); LYMPHOCYTES # (AUTO) 0.6 /CMM (0.8-4.8); LYMPHOCYTES % (AUTO) 14.3 % (20.0-44.0); MEAN CORPUSCULAR HGB CONC 35 g/dl (31.0-36.0); MEAN CORPUSCULAR VOLUME 99 fL (80-96); MONOCYTES # (AUTO) 0.3 /CMM (0.1-1.30); MONOCYTES % (AUTO) 7.8 % (2.0-12.0); NEUTROPHILS # (AUTO) 3.4 /CMM (1.8-8.9); NEUTROPHILS % (AUTO) 76.7 % (43.0-81.0); PLATELET COUNT (AUTO) 109 /CMM (150-450); WHITE BLOOD COUNT (AUTO) 4.5 K/uL (4.3-11.0)
--- NOTE | 2019-01-15 07:30 | NUR ---
RN NOTES PATIENT REMAINED STABLE CONTINUE ON O2 3LPM VIA NC TOLERATED WELL. SUCTIONED DEEPLY WITH THICK YELLOWISH SECRETION. AFEBRILE VSS. INCONTINENT CARE RENDERED. NO SIGNIFICANT CHANGES TROUGHOUT THE SHIFT. BEDBATH DONE. F/C DRAINED VIA GRAVITY. CRITICAL RESULT OF ALBUMIN REPORTED. ENDORSED CONTINUITY OF CARE TO AM NURSE.
[2019-01-15 08:00] VITALS: BP 105/62
--- NOTE | 2019-01-15 08:16 | NUR ---
RN NOTE PT HAD 500 ML BLACK ASPIRATION FROM PEG TUBE, FEEDING WAS RUNNING AT 45 ML/HR. DR GUZMÁN PAGED WAITING FOR RESPONSE. FEEDING ON HOLD AT THIS TIME.
[2019-01-15] MEDS: METOPROLOL TARTRATE 25 MG TABLET PO SCH (09:00)
[2019-01-15] MEDS ORDERED: SUCRALFATE 1 G/10 ML UDC GT SCH (09:00)
[2019-01-15] MEDS: IV D5/0.45 NACL 1,000 ML IV PRN ×2 (09:19→23:21)
[2019-01-15] MEDS: CLOTRIMAZOLE 1% 15 GM TUBE TP SCH ×2 (09:23→18:04)
[2019-01-15] MEDS: FINASTERIDE (5 MG) 5 MG TABLET PO SCH (09:25)
[2019-01-15] MEDS: DONEPEZIL 5 MG TABLET PO SCH (09:25)
--- NOTE | 2019-01-15 10:00 | NUR ---
RN NOTE EARLIER SPOKE WITH DR OWENS ABOUT BLACK RESIDUAL, SHE ORDERED TO HAVE PEG TUBE ON LOW INTERMITTENT SUCTION, AND START IVF. LATER DR GUZMÁN SAW THE PT, ORDERED H/H CHECK Q4H, HOLD FEEDING, CONTINUE IVF, NO NEED FOR SUCRALFATE AND KEEP NEXIUM 40 MG Q12H, IF HGB DROPS BELOW 7.0, TO TRANSFUSE 1 UNIT PRBC. WILL ENTER IN EMAR AND MONITOR PT CLOSELY. Addendum: 01/15/19 at 1355 by FRANCISCO VANG RN PER DR GUZMÁN - NO NEED FOR PEG TUBE TO BE ON LIS.
[2019-01-15] MEDS: NEXIUM 40 MG VIAL IV SCH ×2 (10:25→21:15)
[2019-01-15 10:55] LABS: HEMOGLOBIN 8.1 g/dL (13.5-17.5)
[2019-01-15 12:00] VITALS: BP 118/62
[2019-01-15] MEDS: BLOOD SUGAR DIAGNOSTIC 1 EACH STRIP IN SCH ×3 (13:00→23:21)
--- NOTE | 2019-01-15 13:55 | NUR ---
RN NOTE SPOKE WITH DR GUZMÁN ABOUT INCREASING STOMACH RESIDUAL FROM 500 ML IN AM TO 750 ML NOW - HE ORDERED REGLAN 10 MG IV Q6H. WILL ORDER AND CARRY OUT.
--- NOTE | 2019-01-15 13:57 | NUR ---
SPOKE WITH PT'S PARNTER REGARDING HOME MEDICATION ALFUZOSIN TO BRING HERE. HE SAID HE WILL PROVIDE.
[2019-01-15] MEDS: METOCLOPRAMIDE HCL 10 MG/2 ML VIAL IV SCH ×2 (14:29→21:13)
[2019-01-15 16:00] VITALS: BP 122/59
--- NOTE | 2019-01-15 19:00 | NUR ---
RN NOTE PER DR GUZMÁN TO GIVE REGLAN Q6H, RECHECK RESIDUALS Q4H, AND ONCE THE RESIDUAL DECREASES TO RESUME TUBE FEEDING SLOWLY AT 20 ML/HR. TO RECHECK H/H Q4 HR 2 MORE TIMES IF H/H STABLE TO STOP CHECKING H/H. WILL ENDORSE TO WINDOW ASSEMBLER.
[2019-01-15 20:00] VITALS: BP_SYST 100; BP_DIAS 50; BP_DIAS 55
[2019-01-15] MEDS ORDERED: TWOCAL HN 1,000 ML LIQUID GT PRN (20:00)
--- NOTE | 2019-01-15 20:00 | NUR ---
RN RANDI INITIAL NOTE PT AO X 1, OPENS EYE, FOLLOW'S SIMPLE COMMAND, PARTNER AT BEDSIDE. ON 3L O2 VIA NC AND SATTING 94%, CONGESTED RT ASSIGNED AWARE, BREATHING TX AND SUCTION PROVIDED. NO SOB OR ACUTE SIGNS OF DISTRESS NOTED. BREATHING IS EVEN AND UNLABORED. SR HR 98 ON THE MONITOR. F/C NOTED TO BE C/D/I AND DRAINING TO GRAVITY. LEFT UPPER ARM PICC LINE NOTED, PATENT AND INTACT. NO REDNESS OR SIGNS OF INFILTRATION NOTED. GTUBE NOTED PATENT. PLACEMENT CHECKED AND VERIFIED VIA AUSCULTATION. GTUBE FEEDING, LESS THAN 10CC OF RESIDUALS ASPIRATED AT THIS TIME. BED IN LOW LOCKED POSITION, SIDE RAILS UP X2, CALL LIGHT WITHIN REACH. WILL CONTINUE TO MONITOR Addendum: 01/16/19 at 0003 by ELIZABETH MAYA RN GTUBE RESIDUAL VERIFIED, 5 CC, FEEDING RESUMED@20ML, HOB ELEVATED, ASPIRATION PRECAUTION IN PLACE.
[2019-01-15 20:54] LABS: HEMOGLOBIN 7.6 g/dL (13.5-17.5)
[2019-01-15] MEDS: ATORVASTATIN 10 MG TABLET PO SCH (21:13)
[2019-01-16 00:18] VITALS: BP 100/50
[2019-01-16 01:24] LABS: HEMOGLOBIN 7.6 g/dL (13.5-17.5)
[2019-01-16] MEDS: METOCLOPRAMIDE HCL 10 MG/2 ML VIAL IV SCH ×4 (03:03→20:22)
[2019-01-16 04:00] VITALS: BP 112/62
[2019-01-16] MEDS: IPRATROPIUM NEB FS 0.5 MG/2.5 ML AMPUL.NEB NEB SCH ×6 (04:13→23:47)
[2019-01-16] MEDS: ALBUTEROL FS 2.5 MG/0.5 ML VIAL.NEB NEB SCH ×6 (04:13→23:47)
[2019-01-16] MEDS: POLYVINYL ALCOHOL/POVIDONE 0.4 ML DROPERETTE EACHEYE SCH ×3 (05:22→20:22)
[2019-01-16] MEDS: BLOOD SUGAR DIAGNOSTIC 1 EACH STRIP IN SCH ×3 (05:22→17:45)
[2019-01-16 06:52] LABS: BASOPHILS % (AUTO) 0.3 % (0.0-2.0); EOSINOPHILS % (AUTO) 1.6 % (0.0-6.0); HEMATOCRIT 21 % (39-51); HEMOGLOBIN 7.4 g/dL (13.5-17.5); LYMPHOCYTES # (AUTO) 0.7 /CMM (0.8-4.8); MEAN CORPUSCULAR HGB CONC 35 g/dl (31.0-36.0); MEAN CORPUSCULAR VOLUME 100 fL (80-96); MONOCYTES # (AUTO) 0.3 /CMM (0.1-1.30); MONOCYTES % (AUTO) 7.9 % (2.0-12.0); NEUTROPHILS # (AUTO) 3.2 /CMM (1.8-8.9); NEUTROPHILS % (AUTO) 73.2 % (43.0-81.0); PLATELET COUNT (AUTO) 124 /CMM (150-450); RED BLOOD CELL COUNT(AUTO) 2.11 MIL/uL (4.5-6.0); WHITE BLOOD COUNT (AUTO) 4.4 K/uL (4.3-11.0)
--- NOTE | 2019-01-16 07:03 | NUR ---
RN RANDI CLOSING NOTE ENDORSED PT TO AM RN, AOX1, PLAN OF CARE CONT'D ORDERED, H&H MONITORING Q4 AAS ORDERED MONITORED, GTFEEDING RESUMED AT 1999, GT RESIDUAL VERIFIED, 5 CC, WELL TOLERATED THROUGH SHIFT, NO RESIDUAL WILL ENDORSE TO AM RN TO F/U.
[2019-01-16 07:20] LABS: CALCIUM, SERUM 7.1 mg/dL (8.5-10.1); CREATININE 0.6 mg/dL (0.6-1.3); MAGNESIUM 1.7 mg/dL (1.8-2.4); PHOSPHORUS 2.5 mg/dL (2.5-4.9); POTASSIUM 3.7 mmol/L (3.5-5.1)
--- NOTE | 2019-01-16 07:45 | NUR ---
RN RANDI: GTF was resumed by night nurse, 20ml/h now
[2019-01-16 08:00] VITALS: BP 103/68
--- NOTE | 2019-01-16 08:17 | NUR ---
RN RANDI: pt is A/Ox1, rest, no pain, uncooperative, was oriented for POC, O2sat. WNL, O2n/c 3L, getting resp Tx, H/H q4h, H/H now 7.08/30, GTF residual 25ml, continue same GTF 20ml/h, will suction by RT
[2019-01-16] MEDS: METOPROLOL TARTRATE 25 MG TABLET PO SCH (09:17)
[2019-01-16] MEDS: FINASTERIDE (5 MG) 5 MG TABLET PO SCH (09:17)
[2019-01-16] MEDS: DONEPEZIL 5 MG TABLET PO SCH (09:18)
[2019-01-16] MEDS: CLOTRIMAZOLE 1% 15 GM TUBE TP SCH ×2 (09:22→17:53)
--- NOTE | 2019-01-16 09:45 | NUR ---
RN RANDI: GTF residual 25 ml
--- NOTE | 2019-01-16 10:30 | NUR ---
RN RANDI: GTF residual 30ml, continue GTF 30ml/h, is in room, updated with pt.current condition, VS, I/O, GTF, IVF, labs, H/H, resp.Tx, BS, meds, ordered: D/c IVF, H/H q4h, see new orders
[2019-01-16] MEDS: NEXIUM 40 MG VIAL IV SCH ×2 (10:49→20:22)
[2019-01-16 12:00] VITALS: BP 116/62
[2019-01-16] MEDS: Magnesium 1GM/D5W 100ML PREMIX 100 ML IV SCH ×2 (12:00→13:29)
[2019-01-16] MEDS: ALFUZOSIN 10 MG PO SCH (12:12)
--- NOTE | 2019-01-16 13:00 | NUR ---
SHIPPING TRACK SUPERVISOR: unable to finish with myself charting, VS, I/O, notes, [employer] supervisor sent me back to ICU rapidly, full report was given for next nurse
[2019-01-16 16:00] VITALS: BP 140/62
[2019-01-16] MEDS: SUCRALFATE 1 G/10 ML UDC GT SCH ×2 (17:45→21:59)
--- NOTE | 2019-01-16 19:10 | NUR ---
SWEET PICKLE MAKER NOTE PATIENT IS AOX1-2 RESTING WITH HOB ELEVATED, NO CARDIAC OR RESPIRATORY DISTRESS NOTED, FAMILY AT BEDSIDE, SR ON MONITOR, NO PAIN NOTED VIA FLACC, SKIN KEPT CLEAN AND DRY, KEVIN PICC SL, IV PATENT FLUSHING WELL, G TUBE CLAMPED, WILL CONTINUE TO MONITOR FOR RESIDUAL, SAFETY MAINTAINED AT ALL TIMES, BED IN LOW LOCKED POSITION, CALL LIGHT WITHIN REACH, WILL CONTINUE TO MONITOR FOR ANY CHANGES.
[2019-01-16 20:00] VITALS: BP 110/57
--- NOTE | 2019-01-16 20:25 | NUR ---
rn notes 1300-received patient from rn. patient awake, alert. partner at bedside. patient does not sign of pain. oral care done. monitor tolerance of GT feedings. repositioned for comfort. 1800-tej, HEADER SETUP OPERATOR GI, evaluated patient. GT residuals noted and shown to her, order recieved to hold for 1 hr then check residuals. 1900-residuals checked, 40, tej notified, report given to rn for further care. patient awake, alert, no sign of pain
[2019-01-16] MEDS: ATORVASTATIN 10 MG TABLET PO SCH (21:59)
--- NOTE | 2019-01-16 23:02 | NUR ---
ERP ENGINEER NOTE CALL TO DR GARAY CONCERNING PT RESIDUAL 300 WITH GTUBE FEEDING AT 60 ML/HR, STATES OK TO STOP G TUBE FEEDING AND CONTINUE TO MONITOR.
[2019-01-17] VITALS (7 sets, daily range): BP systolic 91–129; BP diastolic 54–81
[2019-01-17] MEDS: BLOOD SUGAR DIAGNOSTIC 1 EACH STRIP IN SCH ×4 (00:37→18:51)
[2019-01-17] MEDS: METOCLOPRAMIDE HCL 10 MG/2 ML VIAL IV SCH ×4 (02:08→20:33)
[2019-01-17] MEDS: ALBUTEROL FS 2.5 MG/0.5 ML VIAL.NEB NEB SCH ×6 (03:23→22:48)
[2019-01-17] MEDS: IPRATROPIUM NEB FS 0.5 MG/2.5 ML AMPUL.NEB NEB SCH ×6 (03:23→22:48)
[2019-01-17] MEDS: POLYVINYL ALCOHOL/POVIDONE 0.4 ML DROPERETTE EACHEYE SCH ×3 (05:33→20:47)
[2019-01-17 06:28] LABS: BASOPHILS % (AUTO) 0.5 % (0.0-2.0); HEMATOCRIT 22 % (39-51); HEMOGLOBIN 7.7 g/dL (13.5-17.5); LYMPHOCYTES # (AUTO) 0.8 /CMM (0.8-4.8); LYMPHOCYTES % (AUTO) 18.4 % (20.0-44.0); MEAN CORPUSCULAR HGB CONC 35 g/dl (31.0-36.0); MEAN CORPUSCULAR VOLUME 100 fL (80-96); MONOCYTES # (AUTO) 0.4 /CMM (0.1-1.30); MONOCYTES % (AUTO) 9.1 % (2.0-12.0); PLATELET COUNT (AUTO) 147 /CMM (150-450); RED BLOOD CELL COUNT(AUTO) 2.23 MIL/uL (4.5-6.0); WHITE BLOOD COUNT (AUTO) 4.2 K/uL (4.3-11.0)
[2019-01-17 06:40] LABS: CALCIUM, SERUM 7.5 mg/dL (8.5-10.1); CARBON DIOXIDE 26 mmol/L (21-32); CHLORIDE 105 mmol/L (98-107); CREATININE 0.5 mg/dL (0.6-1.3); GLUCOSE 84 mg/dL (74-106); MAGNESIUM 2.1 mg/dL (1.8-2.4); PHOSPHORUS 2.9 mg/dL (2.5-4.9); SODIUM SERUM 137 mmol/L (136-145); UREA NITROGEN, BLOOD 20 mg/dL (7-18)
--- NOTE | 2019-01-17 07:30 | NUR ---
PROGRAM ATTENDANT OPENING NOTE RECEIVED REPORT AT BEDSIDE. PT AO X 1, OPENS EYE, FOLLOW'S SIMPLE COMMAND. ON 3L O2 VIA NC AND SATTING 93%, RT ASSIGNED AWARE, BREATHING TX AND SUCTION PROVIDED. NO SOB OR ACUTE SIGNS OF RESPIRATORY/CARDIAC DISTRESS NOTED. BREATHING IS EVEN AND UNLABORED. SR HR 98 ON THE MONITOR. F/C DRAINING TO GRAVITY WITH CLEAR URINE. LEFT UPPER ARM PICC LINE NOTED, PATENT AND INTACT. NO REDNESS OR SIGNS OF INFILTRATION NOTED. GTUBE NOTED PATENT. GTUBE FEEDING RUNNING 10 ML/HR. BED IN LOW LOCKED POSITION, SIDE RAILS UP X2, CALL LIGHT WITHIN REACH. WALL SUCTION IN PLACE. WILL CONTINUE TO MONITOR
[2019-01-17] MEDS: NEXIUM 40 MG VIAL IV SCH (08:11)
[2019-01-17] MEDS: FINASTERIDE (5 MG) 5 MG TABLET PO SCH (08:12)
[2019-01-17] MEDS: ALFUZOSIN 10 MG PO SCH (08:13)
[2019-01-17] MEDS: DONEPEZIL 5 MG TABLET PO SCH (08:13)
[2019-01-17] MEDS: SUCRALFATE 1 G/10 ML UDC GT SCH ×4 (08:13→22:13)
[2019-01-17] MEDS: METOPROLOL TARTRATE 25 MG TABLET PO SCH (08:18)
[2019-01-17] MEDS: CLOTRIMAZOLE 1% 15 GM TUBE TP SCH ×2 (08:19→17:39)
--- NOTE | 2019-01-17 08:30 | NUR ---
[place] MAORI NOTE NO GTF RESIDUAL VOLUME. GTF RATE INCREASED FROM 10 ML/HR TO 15 ML/HR. GOAL IS 45 ML/HR. WILL CONTINUE TO MONITOR.
--- NOTE | 2019-01-17 11:15 | NUR ---
RN MS NOTE DR. OWENS AT BEDSIDE. DISCUSSED POSSIBLE D/C PLAN FOR TOMORROW WITH THE PATIENT'S PARTNER.
--- NOTE | 2019-01-17 14:00 | NUR ---
RN MS NOTE NO GTF RESIDUAL VOLUME. GTF RATE INCREASED TO 20 ML/HR. WILL CONT' TO MONITOR.
--- NOTE | 2019-01-17 17:45 | NUR ---
MS RN NOTE ACCORDING TO THE PATIENT'S PARTNER AT BEDSIDE, SOME NEW LUMPS NOTED ON HIS RIGHT ARM. DR. OWENS MADE AWARE.
--- NOTE | 2019-01-17 18:12 | NUR ---
MS RN NOTE PT COMPLAINS OF GENERALIZED PAIN. DR OWENS ORDERED TYLENOL 650 Q6H. ORDER CARRIED OUT.
[2019-01-17] MEDS ORDERED: ACETAMINOPHEN 650 MG/20.3 ML UDC GT PRN (18:30)
--- NOTE | 2019-01-17 19:25 | NUR ---
RN MS CLOSING NOTE ENDORSED PT TO PM RN, AOX1, PLAN OF CARE CONT'D ORDERED. NO SIGN OF RESPIRATORY DISTRESS OR SOB NOTED AT THIS TIME. PARTNER AT BEDSIDE. ALL NEEDS ATTENDANT.
--- NOTE | 2019-01-17 19:34 | NUR ---
SCREW MACHINE ADJUSTER AUTOMATIC OPENING NOTE RECEIVED REPORT AT BEDSIDE. PATIENT A/O X 1, OPENS EYE, FOLLOW'S SIMPLE COMMAND. ON 3L O2 VIA NC AND SATURATING WELL. NO SOB OR ACUTE SIGNS OF RESPIRATORY/CARDIAC DISTRESS NOTED AT THIS TIME. BREATHING IS EVEN AND UNLABORED. F/C DRAINING TO GRAVITY WITH CLEAR URINE. LEFT UPPER ARM PICC LINE NOTED, PATENT AND INTACT. NO REDNESS OR SIGNS OF INFILTRATION NOTED. G.TUBE FEEDING STOPPED BY DAY SHIFT RN DUE TO 120ML RESIDUAL AND WILL TURN IT ON AROUND 2000 AT RATE OF 20 ML/HR. BED IN LOW LOCKED POSITION, SIDE RAILS UP X2, CALL LIGHT WITHIN REACH. WALL SUCTION IN PLACE. WILL CONTINUE TO MONITOR
[2019-01-17] MEDS: PANTOPRAZOLE 40 MG/PACK PACK GT SCH (20:47)
[2019-01-18] VITALS (32 sets, daily range): BP systolic 88–134; BP diastolic 31–58
[2019-01-18] MEDS: BLOOD SUGAR DIAGNOSTIC 1 EACH STRIP IN SCH ×4 (00:23→17:12)
[2019-01-18] MEDS: METOCLOPRAMIDE HCL 10 MG/2 ML VIAL IV SCH ×4 (02:12→20:06)
[2019-01-18] MEDS: ALBUTEROL FS 2.5 MG/0.5 ML VIAL.NEB NEB SCH ×6 (03:38→23:10)
[2019-01-18] MEDS: IPRATROPIUM NEB FS 0.5 MG/2.5 ML AMPUL.NEB NEB SCH ×6 (03:38→23:10)
[2019-01-18] MEDS: POLYVINYL ALCOHOL/POVIDONE 0.4 ML DROPERETTE EACHEYE SCH ×3 (04:53→20:09)
[2019-01-18 06:21] LABS: BASOPHILS % (AUTO) 0.3 % (0.0-2.0); EOSINOPHILS % (AUTO) 0.7 % (0.0-6.0); LYMPHOCYTES # (AUTO) 0.7 /CMM (0.8-4.8); LYMPHOCYTES % (AUTO) 19.4 % (20.0-44.0); MEAN CORPUSCULAR HGB CONC 35 g/dl (31.0-36.0); MEAN CORPUSCULAR VOLUME 101 fL (80-96); MONOCYTES # (AUTO) 0.3 /CMM (0.1-1.30); NEUTROPHILS # (AUTO) 2.6 /CMM (1.8-8.9); NEUTROPHILS % (AUTO) 70.6 % (43.0-81.0); PLATELET COUNT (AUTO) 138 /CMM (150-450); WHITE BLOOD COUNT (AUTO) 3.6 K/uL (4.3-11.0)
[2019-01-18 06:36] LABS: CALCIUM, SERUM 7.7 mg/dL (8.5-10.1); CARBON DIOXIDE 25 mmol/L (21-32); CHLORIDE 106 mmol/L (98-107); CREATININE 0.5 mg/dL (0.6-1.3); GLUCOSE 89 mg/dL (74-106); MAGNESIUM 2.1 mg/dL (1.8-2.4); PHOSPHORUS 3.3 mg/dL (2.5-4.9); SODIUM SERUM 137 mmol/L (136-145); UREA NITROGEN, BLOOD 20 mg/dL (7-18)
[2019-01-18 06:43] LABS: RED BLOOD CELL COUNT(AUTO) 1.99 MIL/uL (4.5-6.0)
[2019-01-18 06:44] LABS: HEMATOCRIT 20 % (39-51)
--- NOTE | 2019-01-18 06:55 | NUR ---
MS RN NOTE, PER LAB PATIENTS HGB 7 AND HCT 20. MD NOTED AND REQUESTED STAT HGB AND TO ENDORSE THE PATIENT TO AM SHIFT.
[2019-01-18 07:21] LABS: HEMOGLOBIN 7.1 g/dL (13.5-17.5)
--- NOTE | 2019-01-18 07:30 | NUR ---
MS RN CLOSING NOTES, PATIENT IN BED, AOX1, PLAN OF CARE CONT'D ORDERED. PATIENTS O2 SATURATION IS LOW AND AM NURSE NOTED. FC IS DRAINING WELL. IV IS PATENT AND NO INFILTRATION NOTED AT THIS TIME. ALL SAFETY MEASURE IN PLACE, BED LOW/LOCKED, CALL LIGHT WITHIN REACH. AM RN IS WITH PATIENT.
[2019-01-18 07:55] LABS: ABG BASE EXCESS 0.5 mmol/L; ABG OXYGEN SATURATION 77.3 % (92.0-98.5); ABG PCO2 30.2 mmHg (35.0-45.0); ABG PH 7.506 (7.350-7.450); ABG PO2 40.2 mmHg (75.0-100.0); AaDO2 642.6 mmHg; COHb 0.3 % (0.5-1.5); MetHb 1.3 % (0.0-1.5); O2Hb 76.1 % (94.0-97.0); SITE, ABG Right Radial; VENT MODE, BG N/B MASK
--- NOTE | 2019-01-18 07:56 | NUR ---
RN OPENING NOTES RECEIVED PATIENT RESTING IN BED WITH O2 SATURATION OF 65%. SWITCHED NC TO FACE MASK, NO IMPROVEMENT. PAGED RESP. WAS TOLD TO PUT ON NON-REBREATHER WITH 15L OF O2, PATIENTS O2 SAT HAS IMPROVED, NOW STANDS AT 87%. ABGS HAVE BEEN ORDERED AND DRAWN. HE IS AOX1, NONVERBAL, BEDRIDDEN. FC IS INTACT. GTUBE FEEDING IS RUNNING AT 25ML/HR, TOLERATING WELL. SACRAL REDNESS NOTED. KEVIN PICC LINE IS INTACT AND PATENT. PATIENT HAS SMALL BUMPS ALONG R UPPER ARM, MD AWARE. SAFETY MEASURES HAVE BEEN IMPLEMENTED, CALL LIGHT WITHIN REACH, BED IS IN LOWEST AND LOCKED POSITION, SIDE RAILS UP X2, WILL CONTINUE TO MONITOR FOR ANY CHANGES.
--- NOTE | 2019-01-18 08:04 | NUR ---
ABG HAS BEEN RESULTED, SOON TO PAGE DR PEREZ
[2019-01-18] MEDS: SUCRALFATE 1 G/10 ML UDC GT SCH ×4 (08:09→21:27)
--- NOTE | 2019-01-18 08:32 | NUR ---
MS nurse, was notified re; ABG results at this time
--- NOTE | 2019-01-18 08:42 | NUR ---
WOUND CARE CONSULT: PT SEEN FOR LEFT LATERAL LOWER LEG SKIN TEAR AND RT ANTERIOR LOWER LEG FRAGILE SKIN WITH DRY ABRASION. MULTIPLE AREAS OF SKIN DISCOLORATION NOTED TO LEGS. SKIN IS VERY FRAGILE. RECOMMENDATIONS MADE FOR SKIN PROTECTION AND WOUND CARE. PT NOT TURNED AT THIS TIME FOR FULL SKIN ASSESSMENT DUE TO UNSTABLE AT THIS TIME PER RESPIRATORY THERAPIST. WILL SEE PRN. WARD IN AGREEMENT WITH PLAN OF CARE. Addendum: 01/18/19 at 0844 by NIR WEBB Amended: Links added. Addendum: 01/18/19 at 0856 by NIR SUAREZU DPM CONSULT REQUESTED. DR SALES NOTIFIED OF CONSULT REQUEST.
--- NOTE | 2019-01-18 08:50 | NUR ---
Spoke with Dr. Ramachandran, hold tube feeding until follow up chest xray. rule out aspiration
[2019-01-18] MEDS ORDERED: MINERAL OIL/PETROLATUM,WHITE 120 GM JAR TP SCH (09:00)
[2019-01-18] MEDS: METOPROLOL TARTRATE 25 MG TABLET PO SCH (09:00)
--- NOTE | 2019-01-18 09:00 | NUR ---
TRANSFER REPORT GIVEN TO RJ ROMERO IN ICU
--- NOTE | 2019-01-18 09:00 | NUR ---
ICU/RN: RECEIVED BEDSIDE REPORT FROM RJ CHERRY. PT TRANSFERRED FROM TELE TO ICU, DESATURATING, PLACED ON FACE MASK. PARTNER AT BEDSIDE. DISCUSSED CODE STATUS.
[2019-01-18] MEDS: PANTOPRAZOLE 40 MG/PACK PACK GT SCH ×2 (09:18→20:06)
[2019-01-18] MEDS: FINASTERIDE (5 MG) 5 MG TABLET PO SCH (09:18)
[2019-01-18] MEDS: DONEPEZIL 5 MG TABLET PO SCH (09:20)
[2019-01-18] MEDS: CLOTRIMAZOLE 1% 15 GM TUBE TP SCH ×2 (09:27→17:13)
--- NOTE | 2019-01-18 09:30 | NUR ---
ICU/RN: SPOKE TO PARTNER REGARDING CODE STATUS. PER FAMILY HE WILL NOW BE DNR/DNI. CHARGE NURSE CONFIRMED DECISION. NOTIFIED. TLO ORDERS RECEIVED TO PLACE ORDER.
[2019-01-18] MEDS: ALFUZOSIN 10 MG PO SCH (09:53)
--- NOTE | 2019-01-18 10:00 | NUR ---
ICU/RN: PER D/C BLOOD TRANSFUSION ORDER.
--- NOTE | 2019-01-18 17:44 | NUR ---
ICU/RN: BED BATH GIVEN. BP STABLE, LOW 02 SAT. PER FAMILY NO INVASIVE MEANS, NO INTUBATION, NO BIPAP, NO VASOPRESSORS. WILL CONTINUE ORDERED TX. PT TURNED AND REPOSITIONED. ALL NEEDS WILL BE ATTENDED TO, SAFETY MEASURES TAKEN, BED IN LOW POSITION. PARTNER AT BEDSIDE.
--- NOTE | 2019-01-18 19:15 | NUR ---
ICU/RN: ENDING NOTES,AM BEDSIDE REPORT ENDORSED TO NIGHT NURSE. PT ON NON REBREATHER MASK, 02 SAT ON 70S. PT IS NOW DNR/DNI. FAMILY DOES NOT WANT BIPAP OR OTHER EXTREME MEASURES TO KEEP HIM ALIVE. FOAL IS TO KEEP PT COMFORTABLE AND PAIN FREE. GREEN CATH IN PLACE, DRAINING YELLOW URINE. GTUBE FEEDING STOPPED PER MD, WILL FOLLOW UP. NO RESIDUAL NOTED. ALL NEEDS ATTENDED TO, SAFETY MEASURES TAKEN, BED IN LOW POSITING, SIDE RAILS UP, CALL LIGHT WITHIN REACH, BED BATH GIVEN.
--- NOTE | 2019-01-18 19:30 | NUR ---
FACILITY OPERATIONS MANAGER NOTE RECEIVED PT OPEN EYES AND NON VERBAL WITH FAMILY AT BEDSIDE. ON NONREBREATHER, BREATHING SHALLOW AND SLIGHTLY LABORED. HOB ELEVATED AND ON ASPIRATION PRECAUTIONS. PT DNR/DNI PER DPOA. TELE-SINUS RHYTHM. SKIN LOOKING PALE. IV KEVIN PICC INTACT, PATENT AND FLUSHING WELL. GT CLAMPED, CLEAN AND DRY WITHOUT RESIDUALS NOTED. GREEN CATHETER IN PLACE AND DRAINING BY GRAVITY. WILL CONTINUE TO MONITOR.
[2019-01-18] MEDS ORDERED: IV D5/ 0.9% NACL 1,000 ML IV PRN (23:30)
--- NOTE | 2019-01-18 23:30 | NUR ---
GM NOTE SHAN [facility] AT BEDSIDE WITH ORDERS TO START D5NS @50 MLS/HR. ORDERS NOTED AND CARRIED OUT.
[2019-01-19] VITALS (8 sets, daily range): BP systolic 45–91; BP diastolic 24–58
[2019-01-19] MEDS: BLOOD SUGAR DIAGNOSTIC 1 EACH STRIP IN SCH (00:37)
--- NOTE | 2019-01-19 01:50 | NUR ---
BUSINESS CENTER REPRESENTATIVE NOTE NOTIFIED FABIAN YEN OF PT'S DETERIORATING CONDITION.
--- NOTE | 2019-01-19 02:10 | NUR ---
PRONOUNCEMENT OF : PATIENT CODE STATUS:DO NOT RESUSCITATE. UNRESPONSIVE TO ANY FORM OF STIMULI.PUPILS ARE FIXED AND DILATED.EKG ASYSTOLE X2 LEADS.PERIPHERAL PULSES ARE ABSENT, ABSENT HEART TONES. APNEIC. RESPIRATIONS -0. NO SIGNS OF LIFE. PRONOUNCED AT 0210. BY:SHABBIR LUJAN RN BSN
== END 2019-01-19 05:15 | disposition expired | DRG 870 ==
LOC: ER 13:26 → ICU 14:06 → TELE-TD 01-14 16:35 → TELE1 01-16 09:47 → MEDSG1 01-17 11:20 → ICU 01-18 08:47
PROVIDERS: ADMIT Internal Medicine; ATTEND Internal Medicine
PROC: 5A1955Z Respiratory Ventilation, Greater than 96 Consecutive Hours (ICD-10-PCS; principal; 2019-01-02)
PROC: B548ZZA Ultrasonography of Superior Vena Cava, Guidance (ICD-10-PCS; principal; 2019-01-02)
PROC: 0BH17EZ Insertion of Endotracheal Airway into Trachea, Via Natural or Artificial Opening (ICD-10-PCS; principal; 2019-01-02)
PROC: 02HV33Z Insertion of Infusion Device into Superior Vena Cava, Percutaneous Approach (ICD-10-PCS; principal; 2019-01-02)
PROC: 5A1955Z Respiratory Ventilation, Greater than 96 Consecutive Hours (ICD-10-PCS; 2019-01-07)
PROC: 0BH17EZ Insertion of Endotracheal Airway into Trachea, Via Natural or Artificial Opening (ICD-10-PCS; 2019-01-07)
PROC: 30233N1 Transfusion of Nonautologous Red Blood Cells into Peripheral Vein, Percutaneous Approach (ICD-10-PCS; 2019-01-14)
DX: A41.9 Sepsis, unspecified organism (principal); G92 Toxic encephalopathy; R65.21 Severe sepsis with septic shock; J69.0 Pneumonitis due to inhalation of food and vomit; J96.01 Acute respiratory failure with hypoxia; J96.21 Acute and chronic respiratory failure with hypoxia; E43 Unspecified severe protein-calorie malnutrition; I21.A1 Myocardial infarction type 2; N17.0 Acute kidney failure with tubular necrosis; D61.818 Other pancytopenia; E87.1 Hypo-osmolality and hyponatremia; J90 Pleural effusion, not elsewhere classified; J98.11 Atelectasis; G93.1 Anoxic brain damage, not elsewhere classified; R64 Cachexia; K92.2 Gastrointestinal hemorrhage, unspecified; E16.2 Hypoglycemia, unspecified; D63.8 Anemia in other chronic diseases classified elsewhere; E78.5 Hyperlipidemia, unspecified; E86.0 Dehydration; E83.39 Other disorders of phosphorus metabolism; E87.6 Hypokalemia; F02.80 Dementia in other diseases classified elsewhere, unspecified severity, without behavioral disturbance, psychotic disturbance, mood disturbance, and anxiety; I10 Essential (primary) hypertension; I25.10 Atherosclerotic heart disease of native coronary artery without angina pectoris; J44.9 Chronic obstructive pulmonary disease, unspecified; Z79.82 Long term (current) use of aspirin; F09 Unspecified mental disorder due to known physiological condition; R13.10 Dysphagia, unspecified; Z93.1 Gastrostomy status; N40.0 Benign prostatic hyperplasia without lower urinary tract symptoms; R62.7 Adult failure to thrive; Z66 Do not resuscitate; Z79.899 Other long term (current) drug therapy; Z95.5 Presence of coronary angioplasty implant and graft; Z87.891 Personal history of nicotine dependence; K21.9 Gastro-esophageal reflux disease without esophagitis; G31.83 Neurocognitive disorder with Lewy bodies; K72.90 Hepatic failure, unspecified without coma; Y95 Nosocomial condition; T17.990A Other foreign object in respiratory tract, part unspecified in causing asphyxiation, initial encounter; X58.XXXA Exposure to other specified factors, initial encounter; Y92.89 Other specified places as the place of occurrence of the external cause
CPT/HCPCS: 31720; 36415; 36569; 36600; 70450-TC; 71045-TC; 74018; 80048-TC; 80053-TC; 80076-TC; 80202-TC; 81000-TC; 82272-TC; 82533; 82550-TC; 82803-TC; 82962-TC; 83605-TC; 83735-TC; 84100-TC; 84484-TC; 85025-TC; 85027-TC; 85730-TC; 86850-TC; 86921-TC; 87040-TC; 87070-TC; 87081-TC; 87086-TC; 94002-TC; 94003-TC; 94150-TC; 94640-TC; 94760-TC; 94799-TC; 99082-TC; A4216; A6253; A6403; C1751; G0378; J0330; J1650; J1720; J1815; J1940; J2185; J2370; J2543; J2765; J3370; J3475; J3480; J3490; J7030; J7040; J7042; J7050; J7060; J7070; P9016-BL